=== PATIENT | female | born 1970 | race Hispanic/Latino ===

== ENCOUNTER 2017-03-22 18:09 | Inpatient (IN) | payer OTHER ==
--- NOTE | 2017-03-22 18:28 | ED PDOC ---
Arrival/HPI - General Time Seen by Provider: 03/22/17 18:17 Historian: Patient, Other (Friend) - History of Present Illness Narrative History of Present Illness (Text): 03/22/17 18:27 Patient is a 46 year old female with reported past history of seizures "but not put on any seizure medication" presents to the emergency department after witnessed seizure by significant other prior to arrival. Friend reports whole body shaking which lasted for approximately one minute. After shaking episode patient was "passed out for about a minute". No trauma noted. Patient reportedly has had no recent illnesses or change in medication per initial report. No recent fever or chills. No report of headache or nausea or vomiting. PMD: Dr. Hernandez Time/Duration: Prior to Arrival Symptom Onset: Sudden Modifying Factors (Text): None Associated Symptoms (Text): None Past Medical History - Provider Review Nursing Documentation Reviewed: Yes - Infectious Disease Hx of Infectious Diseases: None - Tetanus Immunization Tetanus Immunization: Unknown - Cardiac Hx Cardiac Disorders: No - Pulmonary Hx Asthma: Yes - Neurological Hx Neurological Disorder: No - HEENT Hx HEENT Disorder: No - Renal Hx Renal Disorder: No - Endocrine/Metabolic Hx Endocrine Disorders: No - Hematological/Oncological Hx Blood Disorders: No - Integumentary Hx Dermatological Disorder: No - Musculoskeletal/Rheumatological Hx Musculoskeletal Disorders: No - Gastrointestinal Hx Gastrointestinal Disorders: No - Genitourinary/Gynecological Hx Genitourinary Disorders: No - Psychiatric Hx Psychophysiologic Disorder: Yes Hx Bipolar Disorder: Yes Hx Schizophrenia: Yes Hx Substance Use: No - Past Surgical History Past Surgical History: No Previous - Suicidal Assessment Feels Threatened In Home Enviroment: No Family/Social History - Physician Review Nursing Documentation Reviewed: Yes Family/Social History: CAD/AR Smoking Status: Light Smoker < 10 Cigarettes Daily Hx Alcohol Use: No Hx Substance Use: No Allergies/Home Meds Allergies/Adverse Reactions: Allergies Penicillins Allergy (Verified 03/22/17 18:24) ANAPHYLAXIS Home Medications: Home Meds Medication Instructions Recorded Confirmed Propranolol [Inderal] 10 mg PO DAILY 09/14/15 03/22/17 Rosuvastatin Calcium [Crestor] 20 mg PO HS 09/14/15 03/22/17 Venlafaxine [Effexor XR] 150 mg PO BID 09/14/15 03/22/17 Bupropion HCl [Bupropion HCl Sr] 200 mg PO BID 03/22/17 03/22/17 Cyclobenzaprine [Flexeril] 5 mg PO BID PRN 03/22/17 03/22/17 Docusate Sodium [Sof-Lax] 100 mg PO DAILY 03/22/17 03/22/17 Omeprazole 20 mg PO DAILY 03/22/17 03/22/17 Quetiapine Fumarate [Quetiapine 200 mg PO HS 03/22/17 03/22/17 Fumarate ER] Review of Systems - Review of Systems Constitutional: absent: Fevers Eyes: absent: Vision Changes ENT: Sore Throat. absent: Hearing Changes, Rhinorrhea Respiratory: absent: SOB Cardiovascular: absent: Chest Pain, HOLLOWAY Gastrointestinal: absent: Abdominal Pain Genitourinary Female: absent: Dysuria Musculoskeletal: absent: Neck Pain Skin: absent: Rash Neurological: Speech Changes, Seizure. absent: Headache, Focal Weakness Endocrine: absent: Diaphoresis Psychiatric: absent: Depression Physical Exam - Physical Exam Narrative Physical Exam (Text): Head: Atraumatic. Normocephalic. Eyes: PERRL. EOMI. Conjunctivae are not pale. Visual acuity intact. ENT: Mucous membranes are moist and intact. Oropharynx is clear and symmetric. No pharyngeal erythema or exudates. No uvular deviation. No drooling. No tongue laceration. Neck: Supple. Full ROM. No JVD. No lymphadenopathy. No soft tissue swelling. Cardiovascular: Regular rate. Regular rhythm. Systolic murmur. Pulmonary/Chest: No evidence of respiratory distress. Clear to auscultation bilaterally. No wheezing, rales or rhonchi. Abdominal: Soft and non-distended. There is no tenderness. No rebound, guarding, or rigidity. No organomegaly. Good bowel sounds. Back: No CVA tenderness. No midline tenderness. Extremities: No edema. No cyanosis. No clubbing. Full range of motion in all extremities. No calf tenderness. Skin: Skin is warm and dry. No petechiae. No purpura. No lacerations noted. Neurological: Awake, will answer questions with slow speech but it is appropriate, she moves all 4 extremities with no pronator drift, appears mildly tremulous. Psychiatric: Will open eyes to command and answer questions, denies suicidal or homicidal ideation. 03/22/17 21:28 Vital Signs Reviewed: Yes Vital Signs Temp Pulse Resp BP Pulse Ox 03/22/17 23:50 104 H 18 121/62 99 03/22/17 21:22 99 H 19 162/90 H 97 03/22/17 18:38 99.4 F 93 H 18 126/88 96 Temperature: Afebrile Pulse: Tachycardic Appearance: Positive for: Ill-Appearing Mental Status: Positive for: Confused Medical Decision Making ED Course and Treatment: Progress Notes: Patient evaluated upon arrival to [facility]. History obtained with EMS as well as "significant other". Patient was witnessed to be "shaking all over" for " one minute". On initial exam she will answer questions slowly, move all extremities. She appears postictal. She reports last seizure was over a year ago in [place], where "she had testing done and they didn't think they were real seizures" and she states she was not put on seizure medication. She initially states that she has had no change in her medication, but when asked more specifically she states that she "ran out of my Klonopin I haven't had it for two days". Patient with serial neuro exams is found to be progressively more alert, interactive, awake. She continues to deny any headache, chest pain or shortness of breath. No respiratory distress noted. No calf pain or swelling. No pleuritic chest pain noted. She continues to be improved with interaction with serial exams. EKG shows normal sinus rhythm at 94 BPM with left bundle branch block. This left bundle branch block was NOT PRESENT in previous EKG on 06/08/15. She states no chest pain or shortness of breath. Family reportedly has history of cad. Patient reevaluated. Patient is alert, answering questions. Denies any chest pain or shortness of breath CT Head w/o contrast IMPRESSION: No acute intracranial abnormality Dictated and Authenticated by: Elissa Vigil MD 03/22/2017 7:41 PM Eastern Time ([place] & [place]) 03/22/17 21:30 With continual exams, she is found to be more tachycardic and tremulous. I suspect component of possible withdrawal from medication as she reports not taking Klonopin for several days. IV ativan ordered. Case d/w DR. Owens, covering for PMD, will admit to monitored bed and consult neurology as well as cardiology for LBBB. Patient has had history of intermittent sore throat. Although no obvious pharyngeal erythema or edema noted, I have recommended ENT follow-up for persistent symptoms to exclude pathology. Currently no stridor or angioedema noted. - Lab Interpretations Lab Results: 03/22/17 18:20 03/22/17 18:20 Lab Results 03/22/17 18:20: Sodium 138, Potassium 3.3 L, Chloride 95 L, Carbon Dioxide 31, Anion Gap 15, BUN 16, Creatinine 0.9, Est GFR ( Amer) > 60, Est GFR (Non- Af Amer) > 60, Random Glucose 94, Calcium 10.2, Total Bilirubin 0.5, AST 36, ALT 34, Alkaline Phosphatase 104, Lactate Dehydrogenase 507, Total Creatine Kinase 89, Troponin I < 0.01, NT-Pro-B Natriuret Pep 39.0, Total Protein 9.3 H, Albumin 4.7, Globulin 4.6, Albumin/Globulin Ratio 1.0 L 03/22/17 18:20: PT 11.0, INR 1.02, APTT 27.3 03/22/17 18:20: WBC 6.5, RBC 4.42, Hgb 12.3, Hct 37.2, MCV 84.2, MCH 27.8, MCHC 33.1, RDW 14.4, Plt Count 407, MPV 9.4, Gran % 59.4, Lymph % (Auto) 29.9, [place] % (Auto) 6.8 H, Eos % (Auto) 3.1, Baso % (Auto) 0.8, Gran # 3.84, Lymph # 1.9, [place] # 0.4, Eos # 0.2, Baso # 0.05 03/22/17 18:19: POC Glucose (mg/dL) 115 H - RAD Interpretation Radiology Orders: 03/22/17 18:49 HEAD W/O CONTRAST [CT] Stat CHEST PORTABLE [RAD] Stat Work Checker: Radiologist - EKG Interpretation EKG Interpretation (Text): 03/22/17 21:30 EKG at 18:33 normal sinus rhythm with first degree av block, left bundle branch block Interpreted by ED Physician: Yes Type: 12 lead EKG Comparison: Different from prev. EKG - Medication Orders Current Medication Orders: Discontinued Medications Aminophylline (Aminophylline 25 Mg/Ml Inj) Confirm Administered Dose 250 mg .ROUTE .STK-MED ONE Stop: 03/24/17 09:56 Atorvastatin Calcium (Lipitor) 80 mg PO HS RADHA Last Admin: 03/24/17 22:05 Dose: 80 mg Clonazepam (Klonopin) 1 mg PO BID RADHA PRN Reason: Protocol Last Admin: 03/25/17 09:31 Dose: 1 mg Re-Assess: Reassess Psych Meds Document 03/25/17 10:31 RDS (Rec: 03/25/17 12:02 RDS [id number]) Reassess Psych Med Effective Cyclobenzaprine HCl (Flexeril) 5 mg PO BID PRN PRN Reason: Pain, moderate (4-7) Last Admin: 03/22/17 22:52 Dose: 5 mg Iohexol (Omnipaque 300 100 Ml) Confirm Administered Dose 100 ml IJ .STK-MED ONE Stop: 03/23/17 13:18 Levetiracetam (Keppra) 500 mg PO BID [facility] Last Admin: 03/25/17 09:31 Dose: 500 mg Lorazepam (Ativan) 1 mg IVP ONCE ONE Stop: 03/22/17 21:11 Last Admin: 03/22/17 21:22 Dose: 1 mg Pantoprazole Sodium (Protonix Ec Tab) 40 mg PO 0630 RADHA Last Admin: 03/25/17 07:33 Dose: 40 mg Potassium Chloride (K-Dur 20 Meq Er Tab) 20 meq PO STAT STA Stop: 03/22/17 20:12 Last Admin: 03/22/17 20:36 Dose: 20 meq Potassium Chloride (K-Dur 20 Meq Er Tab) 20 meq PO ONCE ONE Stop: 03/23/17 19:37 Last Admin: 03/23/17 20:12 Dose: 20 meq Potassium Chloride (K-Dur 20 Meq Er Tab) 20 meq PO BRK RADHA Last Admin: 03/25/17 08:00 Dose: 20 meq Propranolol HCl (Inderal) 10 mg PO DAILY [facility] Last Admin: 03/25/17 09:31 Dose: 10 mg Quetiapine Fumarate (Seroquel Xr) 200 mg PO HS RADHA PRN Reason: Protocol Last Admin: 03/24/17 22:05 Dose: 200 mg Regadenoson (Lexiscan) Confirm Administered Dose 0.4 mg IVP .STK-MED ONE Stop: 03/24/17 09:56 - Scribe Statement The provider has reviewed the documentation as recorded by the Polo Clancy Provider Scribe Attestation: All medical record entries made by the Bookeribe were at my direction and personally dictated by me. I have reviewed the chart and agree that the record accurately reflects my personal performance of the history, physical exam, medical decision making, and the department course for this patient. I have also personally directed, reviewed, and agree with the discharge instructions and disposition. Disposition/Present on Arrival - Present on Arrival Any Indicators Present on Arrival: No History of DVT/PE: No History of Uncontrolled Diabetes: No Urinary Catheter: No History Surgical Site Infection Following: None - Disposition Have Diagnosis and Disposition been Completed?: Yes Diagnosis: Seizure, Withdrawal seizures, Left bundle branch block Disposition: HOSPITALIZED Disposition Time: 20:00 Patient Plan: Admission, Telemetry Condition: SERIOUS
[2017-03-22 18:40] VITALS: BMI 40.7
[2017-03-22 19:01] LABS: ADD MANUAL DIFF? NO
[2017-03-22 19:17] LABS: BASO # 0.05 K/mm3 (0.0-2.0); BASO % 0.8 % (0.0-3.0); EOS # 0.2 (0.0-0.7); EOS % 3.1 % (1.5-5.0); GRAN # 3.84 (1.4-6.5); GRAN % 59.4 % (50.0-68.0); HEMATOCRIT 37.2 % (36.0-48.0); LYMPH # 1.9 (1.2-3.4); LYMPH % 29.9 % (22.0-35.0); MEAN CELL VOLUME 84.2 fL (80.0-105.0); MEAN CORPUSCULAR HEMOGLOBIN 27.8 pg (25.0-35.0); MEAN CORPUSCULAR HGB CONC 33.1 g/dl (31.0-37.0); MEAN PLATELET VOLUME 9.4 fl (7.0-11.0); MONO # 0.4 (0.1-0.6); MONO % 6.8 % (1.0-6.0); PLATELET COUNT 407 10^3/uL (120.0-450.0); RED CELL DISTRIBUTION WIDTH 14.4 % (11.5-14.5); WHITE BLOOD COUNT 6.5 10^3/ul (4.5-11.0)
[2017-03-22 19:30] LABS: TROPONIN I < 0.01 ng/mL
[2017-03-22 19:31] LABS: INR 1.02 (0.93-1.08); PARTIAL THROMBOPLASTIN TIME 27.3 Seconds (23.7-30.8)
--- NOTE | 2017-03-22 19:41 | CT ---
EXAM: CT Head Without Intravenous Contrast CLINICAL HISTORY: 46 years old, female; Signs and symptoms and condition or disease; Patient HX: Seizure TECHNIQUE: Axial computed tomography images of the head/brain without intravenous contrast. This CT exam was performed using one or more of the following dose reduction techniques: automated exposure control, adjustment of the mA and/or kV according to patient size, and/or use of iterative reconstruction technique. EXAM DATE/TIME: 03/22/2017 6:49 PM COMPARISON: There are no prior studies for comparison. FINDINGS: Brain: Ventricles are normal in size and configuration. There is no midline shift. There are no intra-axial or extra-axial mass lesions or areas of hemorrhage. There are no abnormal fluid collections. Pink-white differentiation is maintained. Ventricles: See above. Bones: Cranial vault is intact. Soft tissues: unremarkable Sinuses: There is no acute sinusitis. Ears and mastoids: Middle ears and mastoids are unremarkable Orbits: Orbital contents are unremarkable. IMPRESSION: No acute intracranial abnormality
[2017-03-22 19:45] LABS: ALKALINE PHOSPHATASE 104 U/L (38-133); ALT/SGPT 34 U/L (7-56); AST/SGOT 36 U/L (15-39); BILIRUBIN,TOTAL 0.5 mg/dL (0.2-1.3); BLOOD UREA NITROGEN 16 mg/dL (7-21); CALCIUM 10.2 mg/dL (8.4-10.5); CARBON DIOXIDE 31 mmol/L (21-33); CHLORIDE 95 mmol/L (98-107); GFR AFRICAN-AMERICAN > 60; GLUCOSE,RANDOM 94 mg/dL (70-110); POTASSIUM 3.3 mmol/L (3.6-5.0); SODIUM 138 mmol/L (132-148); TOTAL PROTEIN 9.3 g/dL (5.8-8.3)
[2017-03-22] MEDS ORDERED: Potassium Chloride 20 mEq ER Tab PO STA (20:11)
[2017-03-22] MEDS ORDERED: BUPROPION HCL 200 MG PO SCH (22:00)
[2017-03-22] MEDS: QUEtiapine 200 mg XR Tab PO SCH (22:52)
[2017-03-23 08:48] LABS: ALB/GLOB RATIO 1.1 (1.1-1.8); ALKALINE PHOSPHATASE 102 U/L (38-133); ALT/SGPT 29 U/L (7-56); AST/SGOT 32 U/L (15-39); BILIRUBIN,TOTAL 0.6 mg/dL (0.2-1.3); BLOOD UREA NITROGEN 17 mg/dL (7-21); CALCIUM 9.8 mg/dL (8.4-10.5); CARBON DIOXIDE 33 mmol/L (21-33); CHLORIDE 95 mmol/L (98-107); CHOLESTEROL 144 mg/dL (130-200); GFR AFRICAN-AMERICAN > 60; GLUCOSE,RANDOM 111 mg/dL (70-110); MAGNESIUM 2.1 mg/dL (1.7-2.2); PHOSPHOROUS 4.6 mg/dL (2.5-4.5); POTASSIUM 3.3 mmol/L (3.6-5.0); SODIUM 141 mmol/L (132-148); TOTAL PROTEIN 8.5 g/dL (5.8-8.3)
[2017-03-23 09:03] LABS: FREE T4 0.76 ng/dL (0.78-2.19)
--- NOTE | 2017-03-23 09:15 | CARD ---
APPROVED REPORT EKG Measurement Heart [id number] <Conclusion> Sinus rhythm with 1st degree AV block Left bundle branch block Abnormal ECG
[2017-03-23 09:17] LABS: THYROID STIMULATING HORMONE 1.64 mIU/mL (0.46-4.68)
--- NOTE | 2017-03-23 09:49 | RAD ---
HISTORY: sob COMPARISON: 10/15/2015 FINDINGS: LUNGS: No active pulmonary disease. PLEURA: No significant pleural effusion identified, no pneumothorax apparent. CARDIOVASCULAR: Normal. OSSEOUS STRUCTURES: No significant abnormalities. VISUALIZED UPPER ABDOMEN: Normal. OTHER FINDINGS: None. IMPRESSION: No active disease.
[2017-03-23 10:25] LABS: URINE BILIRUBIN NEGATIVE (NEGATIVE); URINE BLOOD NEGATIVE (NEGATIVE); URINE GLUCOSE (UA) NEGATIVE (NEGATIVE); URINE KETONE NEGATIVE (NEGATIVE); URINE LEUKOCYTE ESTERASE NEGATIVE Leu/uL (NEGATIVE); URINE PROTEIN NEGATIVE mg/dL (<30 mg/dL); URINE UROBILINOGEN 0.2 E.U./dL (<1 E.U./dL)
[2017-03-23 10:28] LABS: URINE APPEARANCE CLEAR (CLEAR); URINE COLOR YELLOW (YELLOW)
--- NOTE | 2017-03-23 10:31 | CON ---
DATE: 03/23/2017 REASON FOR CONSULTATION: Cardiac evaluation, abnormal EKG, left bundle branch block, admitted with jovanny sauceda. BRIEF CLINICAL HISTORY: This is a 46-year-old female, obese, body mass index 41.1 kg/m2, history of seizure, admitted with seizure yesterday. Denies any chest pain, denies any shortness of breath, den ies any palpitations. The patient feels shaking whole of the body and she passed out for a minute. The patient has a history of seizures for a long time and was taking seizure medication, but last 6 m ont it was stopped, and yesterday the patient had a seizure episode. Denies any chest pain, shortn ess of breath, any palpitation. PAST MEDICAL HISTORY: Significant for seizure. SOCIAL HISTORY: Active tobacco abuse, quit 8 months ago. Denies any history of alcohol abuse. CURRENT MEDICATIONS: The patient at home was taking ____, Effexor, propranolol, Inderal 10 mg, [place] e, rosuvastatin, omeprazole, cyclobenzaprine and Flexeril. ALLERGIES: PENICILLIN. PREVIOUS CARDIAC WORKUP: The patient had echocardiography done on 11/14/2013: Good LV function, no MVP. The patient had a stress test done on 11/14/2013 that shows limited study due to significant __ __, normal myocardial perfusion study, ejection fraction 72%. The previous EKG 11/14/2013: Normal s inus. Last also EKG ____/2014 also normal sinus. REVIEW OF SYSTEMS: As per HPI. PHYSICAL EXAMINATION: VITAL SIGNS: Temperature afebrile, heart rate 104, blood pressure 143/88. HEENT: PERRLA. Extraocular muscles intact. NECK: Supple. No carotid bruits. No thyromegaly. CHEST: Clear to auscultation. HEART: S1, S2 regular. ABDOMEN: Soft. EXTREMITIES: Clubbing and cyanosis negative. BLOOD WORKUP: WBC 6.5, hemoglobin 12.3, hematocrit 37.2, platelet count 407. Chemistry shows sodium 141, potassium 3.0, chloride 95, carbon dioxide 33, anion gap of 16, BUN 17, creatinine 0.9. IMPRESSION: Sinus tachycardia, left bundle branch block seen since 2014. No evidence of chest pain, no evidence of this acute myocardial infarction. Diabetes, hypertension, hyperlipidemia, sinus tach ycardia, was on propranolol, history of seizure. RECOMMENDATION: Will start Inderal. Get echo to assess LV function. Because of multiple risk facto rs and new onset AFib from last 2 years, including obesity and diabetes, will do a stress test tomorr ow. Discussed with the patient. The patient had a stress test in 2012 that was negative. Will foll ow with you. Thank you, Dr. Owens, for providing the opportunity in taking care of the patient. Chantel Avelar MD cc: [id number] TT: 03/23/2017 10:30:36 Confirmation # [id number] Dictation # [id number] mn
[2017-03-23 11:22] LABS: TROPONIN I < 0.01 ng/mL
--- NOTE | 2017-03-23 13:00 | PN ---
DATE: 03/23/2017 The patient is a 46-year-old white female who was brought in the Emergency Room by her partner. She states she was watching TV and first her arm started to shake and then she had generalized seizures w here she seized for almost a minute and stopped spontaneously and then she was confused, so her partn er called ambulance and she was brought to Emergency Room. According to her partner, she was confuse d for a couple of hours after the seizure. Denies any localized weakness or numbness. Does have nikolai e headache, but denies any nausea, vomiting, diarrhea. No history of drug use. No history of fever or chills. PAST MEDICAL HISTORY: Significant for: 1. Schizophrenia. 2. Bipolar disorder. She is on multiple medications for that. ALLERGIES: SHE IS ALLERGIC TO PENICILLIN. MEDICATIONS AT HOME: She is on Flexeril. She is on Seroquel 200 at bedtime, omeprazole 20 mg daily, Crestor 20 mg at bedtime. She is on propranolol 10 mg daily and venlafaxine and bupropion. SOCIAL HISTORY: She lives with another female, who she claims is her partner. PHYSICAL EXAMINATION: GENERAL: The patient is awake and alert, able to communicate and answer questions appropriately. VITAL SIGNS: The patient is afebrile, pulse 93, respirations 20, blood pressure 143/88. LUNGS: Bilateral fair airflow, no rhonchi or crackle. HEART: S1, S2 audible. ABDOMEN: Soft, nontender, obese. No hepatosplenomegaly. NEUROLOGIC: The patient is awake and alert, communicative. Moves all extremities. LABORATORY EXAMINATION: Chemistry: Sodium 141, potassium 3.3, chloride 95, CO2 of 33, BUN 17, creat inine 0.9, blood sugar of 111, phosphorus 4.6, calcium 9.8, hemoglobin A1c 6.3, total protein 8.1. H DL if 83. TSH 0.76, that is suppressed. CT scan of the chest was done and that is unremarkable. EK G shows sinus rhythm with first degree AV block, left bundle branch block. ASSESSMENT AND PLAN: 1. Recurrent seizures. The patient states she had a seizure almost a year ago when she was in [facility], but in between she was okay. 2. Abnormal EKG. 3. Morbid obesity. 4. Bipolar disorder. 5. Seizure disorder. PLAN: The patient has been started on Keppra. We will do EEG and get MRI of the brain. Awaiting ne urology consult. Dr. Avelar's input noted and appreciated. The patient is scheduled to have stress t est done tomorrow. When we get all these results back, we will make discharge plan. Simi Owens MD cc: [id number] TT: 03/23/2017 12:59:56 Confirmation # [id number] Dictation # [id number] sn
[2017-03-23] MEDS ORDERED: Iohexol 300 100 ML IJ ONE (13:17)
--- NOTE | 2017-03-23 14:34 | CT ---
PROCEDURE: CT HEAD WITH AND WITHOUT CONTRAST HISTORY: SEIZURE COMPARISON: 03/22/2017 TECHNIQUE: Axial computed tomography images were obtained through the head/brain with and without intravenous contrast enhancement. Contrast dose: 100 cc of Omni 300 Radiation dose: Total exam DLP = 1640 mGy-cm. This CT exam was performed using one or more of the following dose reduction techniques: Automated exposure control, adjustment of the mA and/or kV according to patient size, and/or use of iterative reconstruction technique. FINDINGS: HEMORRHAGE: No intracranial hemorrhage. BRAIN: No mass, mass effect or edema. No abnormal intracranial enhancement. No atrophy or chronic microvascular ischemic changes. VENTRICLES: Unremarkable. No hydrocephalus. CALVARIUM: Unremarkable. SINUSES: Unremarkable as visualized. No significant inflammatory changes. MASTOID AIR CELLS: Unremarkable as visualized. No mastoid effusion. OTHER FINDINGS: None. IMPRESSION: Normal pre and post contrast enhanced CT of the head.
[2017-03-23 15:20] LABS: TROPONIN I < 0.01 ng/mL
[2017-03-23] MEDS ORDERED: Potassium Chloride 20 mEq ER Tab PO ONE (19:36)
[2017-03-23] MEDS: Pantoprazole 40 mg EC Tab PO SCH (20:12)
[2017-03-23 20:15] LABS: CHOLESTEROL 145 mg/dL (130-200)
--- NOTE | 2017-03-23 21:50 | CON ---
DATE: 03/23/2017 HISTORY OF PRESENT ILLNESS: This is a 46-year-old female with past medical history not significant, came here with a history of seizure and and noted that she was shaking the whole body, no urin martha incontinence. No tongue bite and brought to the hospital for further workup. SOCIAL HISTORY: Smokes and does not drink. CURRENT MEDICATIONS: Under the psychiatrist, Effexor, propranolol, Inderal. ALLERGIES: PENICILLIN. REVIEW OF SYSTEMS: A 10-point review of system was negative. PHYSICAL EXAMINATION: HEENT: Normocephalic, atraumatic. NECK: Supple. NEUROLOGIC: Alert, awake, and oriented x 3. No aphasia. Cranial nerves II through XII were tested. Pupils equal and reactive to light. EOM intact. Visual granger full. No facial asymmetry. Tongue midline. Motor examination: Moves all the extremities equally. Tone normal. Deep tendon reflexes 1+. Both plantars are downgoing. Sensory appears intact. Cerebellar gait is normal. IMPRESSION: Seizure. PLAN: Continue present management. We will follow up. Stevo Wells MD cc: [id number] TT: 03/23/2017 21:49:27 Confirmation # [id number] Dictation # [id number] sarina
[2017-03-23] MEDS: QUEtiapine 200 mg XR Tab PO SCH (22:38)
[2017-03-24] MEDS: Pantoprazole 40 mg EC Tab PO SCH (06:26)
[2017-03-24 07:24] LABS: ALB/GLOB RATIO 1.1 (1.1-1.8); ALKALINE PHOSPHATASE 91 U/L (38-133); ALT/SGPT 29 U/L (7-56); AST/SGOT 26 U/L (15-39); BILIRUBIN,TOTAL 0.6 mg/dL (0.2-1.3); BLOOD UREA NITROGEN 16 mg/dL (7-21); CALCIUM 9.3 mg/dL (8.4-10.5); CARBON DIOXIDE 34 mmol/L (21-33); CHLORIDE 96 mmol/L (98-107); GFR AFRICAN-AMERICAN > 60; GLUCOSE,RANDOM 101 mg/dL (70-110); MAGNESIUM 2.2 mg/dL (1.7-2.2); PHOSPHOROUS 4.1 mg/dL (2.5-4.5); POTASSIUM 3.3 mmol/L (3.6-5.0); SODIUM 138 mmol/L (132-148); TOTAL PROTEIN 7.6 g/dL (5.8-8.3)
[2017-03-24 07:31] LABS: FREE T4 0.86 ng/dL (0.78-2.19)
[2017-03-24 07:45] LABS: THYROID STIMULATING HORMONE 1.98 mIU/mL (0.46-4.68)
[2017-03-24] MEDS ORDERED: Aminophylline 25 mg/ml Inj ONE (09:55)
--- NOTE | 2017-03-24 11:50 | PN ---
DATE: 03/24/2017 REASON FOR CONSULTATION AND FOLLOWUP: Cardiac evaluation, abnormal EKG, left bundle branch block, ad mitted with seizure. BRIEF CLINICAL HISTORY: A 46-year-old obese female with body mass index 41.1 kg/meters squared, hist ory of seizure disorder, admitted with seizure. Denies any chest pain, shortness of breath, any palp itation. The patient was shaking all over the body and passed out for a minute. The patient was vin ing anti-seizure medication, but quit last 6 months. Denies any chest pain, shortness of breath, any palpitation. The patient had a stress test 2012 that shows normal study, ejection fraction 72%. patient had EKG in showed normal sinus. Since then, the most recent EKG shows left bundle br anch block, so cardiology consult was called. So far, no complaint of chest pain, no ischemic sympto ms, but given the multiple risk factors including obesity, patient is scheduled for a stress test toraffi ling. PHYSICAL EXAMINATION: VITAL SIGNS: Temperature afebrile, heart rate 87, blood pressure 116/62. HEENT: PERRLA. Extraocular muscles intact. NECK: Supple. No carotid bruits. No thyromegaly. CHEST: Clear to auscultation. HEART: S1, S2 regular. ABDOMEN: Soft. EXTREMITIES: Clubbing, cyanosis negative. BLOOD WORKUP: WBC 6.5, hemoglobin 12.3, hematocrit 37.2, platelet count 407. Chemistry shows sodium 130, potassium 3.3, chloride , carbon dioxide 34, anion gap of 11, BUN 16, creatinine 0.8. IMPRESSION: Hypokalemia, seizure disorder, no evidence of acute myocardial infarction, no evidence o f acute coronary syndrome, left bundle branch block, chronicity not known, last EKG 2014 is normal. RECOMMENDATION: We will get a stress test and echo. Further recommendation after the stress test. We will supplement potassium. If remains stable, will discontinue telemetry. Thank you, Dr. Owens, for providing us the opportunity in taking care of the patient. Neurologist' s note reviewed, possibly is a seizure, recommended anti-seizure medication. We will follow with you . Chantel Avelar MD cc:Simi Owens MD [phone] TT: 03/24/2017 11:50:10 Confirmation # [id number] Dictation # [id number] en
--- NOTE | 2017-03-24 12:55 | DS ---
The patient is a 46-year-old, seen and examined in the cardiology department after she had stress hunter t done. No EKG changes upon exercise stress. However, scan is pending. PHYSICAL EXAMINATION: VITAL SIGNS: The patient is afebrile, pulse 83, respirations 20, blood pressure 116/62. LUNGS: Bilateral fair airflow, no rhonchi or crackle. HEART: S1, S2 audible. ABDOMEN: Soft, nontender, no rebound, no guarding. NEUROLOGIC: The patient is awake and alert, communicative. LABORATORY EXAMINATION: WBCs 6.5, hemoglobin 12, hematocrit 37, platelet 407. PT 11.0, INR 1.02. C hemistry: Sodium 138, potassium 3.3, chloride 96, CO2 34, BUN , creatinine 0.8, blood sugar of 101. LFTs are within normal limits. HDL is 83. Urinalysis is unremarkable. Echocardiogram is pend ing. ASSESSMENT: 1. Seizure disorder. 2. Chest pain, seems to be noncardiac. 3. Bipolar disorder. 4. Left bundle branch block. 5. Hypokalemia. The patient states she takes a water pill at home along with potassium. That has b een on hold. PLAN: We will continue patient on Keppra 500 twice a day. Awaiting psych input if they want to read just medication. The patient is cleared from neuro and cardiology point of view. She can be dischar ged home later on today. Simi Owens MD cc: [phone] TT: 03/24/2017 12:54:32 en
[2017-03-24] MEDS: Potassium Chloride 20 mEq ER Tab PO SCH (13:25)
--- NOTE | 2017-03-24 16:34 | CARD ---
APPROVED REPORT Protocol: LEXISCAN Test Type: Lexiscan Sestamibi Stress Test Attending Physician: Dr. Chantel Chairez Referring Physician: Dr. Simi Owens Test Indications: Abnormal ECG Height:5 ft 3 in Weight:232lbs Medications: Lipitor,Klonopin,Glexeril,Keppra, Protonix,Inderal, Seroquel Medical History: 46 y/o female. Hx of A. Fib.,seizures,LBBB, Abnormal EKC. Target HR: 174 bpm Resting ECG: RSR. ST_T Changes. Resting Heart Rate: 78 bpm Resting Blood Pressure: 110/80mmHg Submaximum (85%): 148 bpm PROCEDURE Pharmacologic stress testing was performed using 0.4mg per 5ml of regadenoson given intravenously over 7-10 seconds. POST EXERCISE Reason for Termination: Protocol completed Target HR: No Max HR: 76 bpm 60% of Maximum Predicted HR: 174 bpm Exercise duration: 00:32 min:sec, 0 Stage Exercise capacity: 1.0METs Max Blood Pressure: 110/80mmHg Blood Pressure response to exercise: normal resting BP - appropriate response Heart Rate response to exercise: appropriate Chest Pain: No, none Angina index: 0 Arrhythmia: No, none ST Change: No, none Deviation: 0 mm INTERPRETATION Stress EKG Conclusion: IV LEXISCAN NUCLEAR STRESS TEST NEGATIVE FOR CHEST PAIN AND NEGATIVE FOR ADDITIONAL ST-T CHANGES. NUCLEAR SCAN REPORT PENDING. Signed by Chantel Chairez Electronically Approved: 03/24/2017 13:29:00 EXAM: Myocardial Perfusion REST/STRESS Stress Test Type: Pharmacologic Imaging Protocol Rest Spect myocardial perfusion imaging was performed in supine position 40 minutes following the injection of 10 mCi of Tc-99 Myoview. At peak stress, the patient was injected intravenously with 30mCi of Tc-99 tetrofosmin after an infusion time of minutes and 10 seconds. Gated Stress Spect was performed 60 minutes after intravenous Tc-99 Myoview injection. The images were gated to evaluate regional wall motion and calculate ventricular ejection fraction.Images were reconstructed using backfilter projection method in short horizontal and verticle long axis. Spect slices were generated. LV Perfusion The quality of the study is good. The left ventricle is normal in size. The right ventricle is unremarkable. The lung uptake is normal. The distribution of tracer reveals mildly and diffusely decreased perfusion involving anterior wall on the stress study. The remainder of the LV myocardium is unremarkable. The rest myocardial perfusion study shows no significant change. Wall Motion Wall motion study shows good contractility of the left ventricle. LVEF = 74%. Conclusion 1. Essentially normal SPECT myocardial perfusion study. 2. Fixed, anterior defect is most likely due to breast attenuation. 3. Normal gated wall motion of the left ventricle. 4. In comparison with the last study of 11/14/2013, there is no significant change.
--- NOTE | 2017-03-24 16:36 | CP.PCM.PCO ---
Physician Communication Note - Physician Communication Note Physician Communication Note: pt was at the stress test during round, as per RN no acute issues, will f/u
[2017-03-24] MEDS: QUEtiapine 200 mg XR Tab PO SCH (22:05)
[2017-03-25 06:16] VITALS: O2SAT 96
[2017-03-25] MEDS: Pantoprazole 40 mg EC Tab PO SCH (07:33)
[2017-03-25] MEDS: Potassium Chloride 20 mEq ER Tab PO SCH (08:00)
--- NOTE | 2017-03-25 10:41 | PN ---
DATE: 03/25/2017 REASON FOR CONSULTATION AND FOLLOWUP: Cardiac evaluation, abnormal EKG, left bundle branch block, ad mitted with seizure. BRIEF CLINICAL HISTORY: This is a 46-year-old obese female with increased body mass index of 41.1 kg /m2, seizure disorder, having multiple risk factors for coronary artery disease as well as left bundl e branch block (new). Underwent a stress test that was normal. Denies any chest pain, shortness of breath, any palpitation. PHYSICAL EXAMINATION: VITAL SIGNS: Temperature afebrile, heart rate 70, blood pressure 110/68. HEENT: PERRLA. Extraocular muscles intact. NECK: Supple. No carotid. No thyromegaly. CHEST: Clear to auscultation. HEART: S1, S2 regular. ABDOMEN: Soft. EXTREMITIES: Clubbing and cyanosis negative. LABORATORY DATA: TSH 1.96. Triglycerides 79, cholesterol 145, LDH 37, HDL 83. Stress test shows no reversible ischemia, essentially normal myocardial perfusion study, ejection fra ction of 74%. IMPRESSION: Left bundle branch block since last electrocardiogram in 2012. Negative stress test, no evidence of acute coronary syndrome. No evidence of acute myocardial infarction. Seizure disorder. RECOMMENDATION: Discontinue telemetry. Continue medical treatment. No further cardiac workup is pl anned. Thank you, Dr. Owens, for providing the opportunity in taking care of this patient. Chantel Avelar MD cc: [phone] TT: 03/25/2017 10:41:42 Confirmation # [id number] Dictation # [id number] mn
[2017-03-25 12:44] VITALS: BP 100/62; PULSE 63; RESP 18; TEMP 97.9
--- NOTE | 2017-03-25 12:45 | PN ---
DATE: 03/25/2017 FOLLOWUP A 46-year-old female with no significant past medical history, came with a history of seizures. The patient was not taking the medication, started on Keppra. PHYSICAL EXAMINATION: NEUROLOGIC: Alert, awake, oriented x 3. No aphasia. Cranial nerves II-XII were tested. Pupils mariel ctive. Spontaneous movement of the extremities noted. Deep tendon reflexes 1+. Both plantars downg oing. Sensory appears intact. Cerebellar gait deferred. IMPRESSION: Seizure. Continue present management. We will follow up. Stevo Wells MD cc: [phone] TT: 03/25/2017 12:44:58 Confirmation # [id number] Dictation # [id number] barbi
--- NOTE | 2017-03-25 18:26 | CARD ---
APPROVED REPORT EXAM: Two-dimensional and M-mode echocardiogram with Doppler and color Doppler. INDICATION NEW LBBB/ABNORMAL EKG 2D DIMENSIONS Left Atrium (2D)2.7 (1.6-4.0cm)IVSd1.0 (0.7-1.1cm) LVDd3.9 (3.9-5.9cm)PWd1.0 (0.7-1.1cm) LVDs2.4 (2.5-4.0cm)FS (%) 39.1 % LVEF (%)70.1 (>50%) M-Mode DIMENSIONS Aortic Root3.40 (2.2-3.7cm)Aortic Cusp Exc.1.90 (1.5-2.0cm) Aortic Valve AoV Peak Oiubsper740.0cm/Irina Peak GR.9mmHg Mitral Valve MV E Emcmebxp74.5cm/sMV A Thfdsnji31.3cm/sE/A ratio0.7 TDI Lateral E' Peak V11.30cm/sMedial E' Peak V9.07cm/sE/Lateral E'4.9 E/Medial E'6.1 Pulmonary Valve PV Peak Sldwvfmh145.0cm/sPV Peak Grad.5mmHg Tricuspid Valve TR Peak Kcexyzir817kx/sRAP AFEORXJE83khQqLM Peak Gr.9mmHg [id number] LEFT VENTRICLE The left ventricle is normal size. There is normal left ventricular wall thickness. The left ventricular function is normal.EF-65-70% There is normal LV segmental wall motion. Transmitral Doppler flow pattern is Grade III-reversible restrictive diastolic dysfunction. No left ventricle thrombus noted on this study. There is no ventricular septal defect visualized. There is no left ventricular aneurysm. There is no mass noted in the left ventricle. RIGHT VENTRICLE The right ventricle is normal size. There is normal right ventricular wall thickness. The right ventricular systolic function is normal. ATRIA The left atrium size is normal. The right atrium size is normal. The interatrial septum is intact with no evidence for an atrial septal defect. AORTIC VALVE The aortic valve is thickened but opens well. No aortic regurgitation is present. There is no aortic valvular stenosis. There is no aortic valvular vegetation. MITRAL VALVE The mitral valve is thickened but opens well. Mitral regurgitation is mild. There is no mitral valve stenosis. There is no evidence of mitral valve prolapse. TRICUSPID VALVE The tricuspid valve leaflets are thickened , but open well. There is trace tricuspid regurgitation.RVSP-19 mmof Hg. There is no tricuspid valve stenosis. There is no tricuspid valve prolapse or vegetation. PULMONIC VALVE The pulmonary valve is normal in structure. There is trace pulmonic valvular regurgitation. There is no pulmonic valvular stenosis. GREAT VESSELS The aortic root is normal in size. The ascending aorta is normal in size. The pulmonary artery is normal. The IVC is normal in size and collapses >50% with inspiration. PERICARDIAL EFFUSION There is no pleural effusion. There is no pericardial effusion. <Conclusion> Normal chamber Size. EF-65-70%. Mildf MR Trace Tr. RVSP-19 mmof Hg.
--- NOTE | 2017-03-25 21:13 | CON ---
DATE: 03/25/2017 HISTORY OF PRESENT ILLNESS: Shortly, the patient is a 46-year-old female with a reported h istory of mental illness. Most likely, the patient has schizophrenia spectrum disorder. The patient also deemed to have some neurocognitive limitations. The patient was admitted to the medical floor for evaluation of possible seizure disorder/seizure episode. Psych consult was called for evaluation of medication management. The patient was seen and examined. The patient presented to be alert, pleasant, cooperative. The mark rasmussen's roommate is next to the patient. The patient reported due to the fact that patient's pharmac y was not able to deliver medication (Klonopin), the patient most likely had seizure episode. The mark rasmussen was advised to take medication as it was prescribed and make sure that she is taking medication s on a regular basis. The patient verbalized understanding. The patient reported that she is seeing a psychiatrist at [facility] and she fills medications at [facility]. [facility] was called and medications were confirmed. The patient was on: 1. Wellbutrin 200 mg twice a day, extended release, by Chana Gallagher. 2. Effexor 150 mg 3 times a day, by Chana Gallagher. 3. Seroquel 200 mg at the nighttime, by Chana Gallagher. 4. Klonopin 1 mg 3 times a day, by Chana Gallagher. 5. Also amitriptyline 150 mg at the nighttime, by Chana Gallagher. All of these medications could give decreased seizure threshold, but patient refused to go to the [facility] inpatient unit in order to adjust medications. The patient reported that she feels fine at present moment. Denied being depressed, denied thoughts of harming herself or others, denied intent or plan. The patient denied hearing voices, denied seein g things, denied paranoid ideations. The patient denied history of being admitted to the psychiatric inpatient unit and denied history of suicidal attempts. The patient was educated about medications needing to be adjusted. The patient verbalized understanding. This typewriter operator automatic suggested amitriptyline a nd Effexor should be tapered down. The patient verbalized understanding. The patient was educated t hat Wellbutrin extended release will not give possible decrease seizure threshold. The patient and h er roommate verbalized understanding. As per roommate. the patient gave consent to talk to the MARK wogn to her. As per roommate, the patient was functioning at her baseline and was taken medication of as it was prescribed, but due to the fact that patient's pharmacy did not deliver medications on elizabeth e, most recently she had withdrawal seizures from the Klonopin. Besides that, the patient was not de pressed, did not verbalize any thoughts of harming herself or others. The patient denied history of being admitted to the psychiatric inpatient unit. VITAL SIGNS: Reviewed. Seem to be stable. MEDICATIONS: Reviewed. The patient is on Lipitor, Klonopin, Flexeril, Keppra, Protonix, K-Dur, Inde ral, Seroquel 200 mg. LABORATORY DATA: Reviewed. Seem to be within normal limits. Reports were reviewed. Head CT scan was done on 03/23/2017. Normal CT scan of the head. Myocardial stress test was done. Also, patient was seen by Dr. Wells (neurologist) and was started on Keppra. MENTAL STATUS EXAMINATION: The patient appears to be alert and oriented, pleasant and cooperative. Fair eye contact. Speech was normal rate, tone, quality, and quantity. Thought process was concrete . Most likely this is due to some cognitive limitations. Thought content: The patient denies visua l, auditory, tactile hallucinations. Denied paranoid ideations. The patient denied thoughts of harm ing herself or others, denied intent or plan. Insight and judgment are fair. Impulses are well cont rolled. IMPRESSION: As per history, the patient has schizophrenia spectrum disorder. The patient also has s ome neurocognitive limitations. The patient has multiple medications. Most likely the patient had p olypharmacy which could decrease seizure threshold. On top of that, the patient's pharmacy did not d eliver Klonopin on time and she was missing 2 days of medication; most likely that is why she had sei zure episode. Meanwhile, please see medical team notes for more detailed information about medical i ssues. PLAN: The patient has a followup appointment at [facility]. Medications were c onfirmed. The patient and her roommate were educated about medications and increased risk of decreas ing seizure threshold from the current medication which she is taking. Medical team discontinued Wel lbutrin as well as Effexor as well as amitriptyline. Klonopin should be continued. The patient was offered psychiatric inpatient admission, but patient declined that offer. The patient was educated t o bring herself back to the hospital in case of worsening of the symptoms. The patient verbalized un derstanding. Meanwhile, continue current management. The patient is not suicidal, not homicidal, pr esented to be at her baseline as per patient's friend and roommate. Thank you very much for letting me participate in the care of your patient. Should you have any ques tions, give me a call back. Gisel Baptiste MD cc: [phone] TT: 03/25/2017 21:12:52 Confirmation # [id number] Dictation # [id number] mn
--- NOTE | 2017-03-25 23:31 | DS ---
HISTORY OF PRESENT ILLNESS: The patient is a 46-year-old seen and examined, lying in bed, seems to be comfortable. No nausea, vomiting. No diarrhea, no seizure-like activity noted. PHYSICAL EXAMINATION: VITAL SIGNS: She is afebrile, pulse 63, respirations 18, blood pressure 100/62. LUNGS: Bilateral fair air flow. No rhonchi or crackle. HEART: S1, S2 audible. No murmur. ABDOMEN: Soft, nontender, no rebound, no guarding. NEUROLOGIC: The patient is awake and alert, communicative. DIAGNOSTIC DATA: She had a stress test done that is unremarkable. EEG is pending. I spoke to Dr. Stevo Wells. He ag carroll to send patient home on Keppra 500 twice a day. ASSESSMENT: 1. Seizure disorder. This is the second episode. 2. History of bipolar disorder. 3. Intermittent bilateral leg edema. 4. Chest pain, noncardiac. Stress test is unremarkable. PLAN: The patient is being discharged home on Keppra 500 twice a day. She will resume her medicatio ns that include bupropion 200 twice a day. She is on Effexor. She is on propranolol 10 mg daily. Sh e is advised to either continue bupropion or Effexor. She is on Crestor 20 mg daily, omeprazole 20 m g daily, Seroquel 200 at bedtime, Keppra 500 twice a day, Klonopin 1 mg twice a day. She will follow with Dr. Alan, who is her primary care doctor, and Dr. Wells as outpatient. Simi Owens MD cc: [phone] TT: 03/25/2017 23:30:48 ln
--- NOTE | 2017-03-30 17:58 | EEG ---
DATE: 03/23/2017 CHIEF COMPLAINT: Rule out seizures. MEDICATIONS: Lipitor, Ativan, Keppra, Flexeril, Inderal, quetiapine. INTERPRETATION: This is a 6-channel international recording. The background activity of this record ing was composed of 6-7 cycles per second. There was small amount of beta activity of 16-20 cycles p er second seen in this recording. There was an increased amount of theta activity 5-7 cycles per sec ond seen in this tracing. Drowsiness was characterized by mixed beta and theta activities. Sleep wa s characterized by vertex transient waves, sleep spindles and bilateral slowing. Photic stimulation showed no change in the tracing. No paroxysmal activity noted in this recording. CONCLUSION: Abnormal electroencephalogram due to presence of diffuse slowing throughout the recordin g. No evidence of any epileptiform activity. Presentation consistent with bilateral cerebral dysfun ction. Please clinically correlate. Jose Guadalupe Wells MD cc: [phone] TT: 03/30/2017 17:57:15 Confirmation # [id number] Dictation # [id number] mn
== END 2017-03-25 15:37 | disposition home or self-care (01) | DRG 101 ==
LOC: ED 18:09 → ERH 21:23 → 2RSO 03-23 00:22
PROVIDERS: ADMIT Internal Medicine; ATTEND Internal Medicine
PROC: 5A09357 Assistance with Respiratory Ventilation, Less than 24 Consecutive Hours, Continuous Positive Airway Pressure (ICD-10-PCS; principal; 2017-03-24)
DX: G40.909 Epilepsy, unspecified, not intractable, without status epilepticus (principal); I10 Essential (primary) hypertension; Z68.41 Body mass index [BMI] 40.0-44.9, adult; R07.89 Other chest pain; F20.89 Other schizophrenia; I44.7 Left bundle-branch block, unspecified; F31.9 Bipolar disorder, unspecified; R00.0 Tachycardia, unspecified; E87.6 Hypokalemia; E78.5 Hyperlipidemia, unspecified; E66.01 Morbid (severe) obesity due to excess calories; Z87.891 Personal history of nicotine dependence

== ENCOUNTER 2018-01-06 10:17 | Emergency (ER) | payer OTHER ==
[2018-01-06 10:17] VITALS: BMI 40.7
[2018-01-06 10:41] VITALS: TEMP 99.1
--- NOTE | 2018-01-06 11:01 | ED PDOC ---
Arrival/HPI - General Chief Complaint: Upper Extremity Problem/Injury Time Seen by Provider: 01/06/18 10:57 Historian: Patient - History of Present Illness Narrative History of Present Illness (Text): 01/06/18 10:58 47 y/o female, pmh including htn/hyperlipidemia, post menopausal, penicillin allergy, c/o lt. elbow pain s/p fall on the lt. elbow about 4 days ago. Aching pain, aggravated by movement, no numbness or tingling, no palpitation, pain has not resolved, no rash, no other medical or psychological complaints. Past Medical History - Provider Review Nursing Documentation Reviewed: Yes - Infectious Disease Hx of Infectious Diseases: None - Tetanus Immunization Tetanus Immunization: Unknown - Cardiac Hx Cardiac Disorders: Yes - Pulmonary Hx Respiratory Disorders: Yes Hx Asthma: Yes - Neurological Hx Neurological Disorder: No - HEENT Hx HEENT Disorder: No - Renal Hx Renal Disorder: No - Endocrine/Metabolic Hx Endocrine Disorders: No - Hematological/Oncological Hx Blood Disorders: No - Integumentary Hx Dermatological Disorder: No - Musculoskeletal/Rheumatological Hx Musculoskeletal Disorders: Yes Other/Comment: HIP PAIN L - Gastrointestinal Hx Gastrointestinal Disorders: Yes Hx Gastroesophageal Reflux: Yes - Genitourinary/Gynecological Hx Genitourinary Disorders: No - Psychiatric Hx Psychophysiologic Disorder: Yes Hx Bipolar Disorder: Yes Hx Schizophrenia: Yes Hx Substance Use: No - Past Surgical History Past Surgical History: No Previous - Surgical History Hx Cardiac Catheterization: No Hx Coronary Stent: No - Anesthesia Hx Anesthesia: No - Suicidal Assessment Feels Threatened In Home Enviroment: No Family/Social History - Physician Review Nursing Documentation Reviewed: Yes Family/Social History: Unknown Family HX Smoking Status: Light Smoker < 10 Cigarettes Daily Hx Alcohol Use: No Hx Substance Use: No Allergies/Home Meds Allergies/Adverse Reactions: Allergies Penicillins Allergy (Verified 01/06/18 10:27) ANAPHYLAXIS Home Medications: Home Meds Medication Instructions Recorded Confirmed Propranolol [Inderal] 10 mg PO DAILY 09/14/15 01/06/18 Rosuvastatin Calcium [Crestor] 20 mg PO HS 09/14/15 01/06/18 Venlafaxine [Effexor XR] 150 mg PO BID 09/14/15 01/06/18 Bupropion HCl [Bupropion HCl Sr] 200 mg PO BID 03/22/17 01/06/18 Cyclobenzaprine [Flexeril] 5 mg PO BID PRN 03/22/17 01/06/18 Docusate Sodium [Sof-Lax] 100 mg PO DAILY 03/22/17 01/06/18 Omeprazole 20 mg PO DAILY 03/22/17 01/06/18 Quetiapine Fumarate [Quetiapine 200 mg PO HS 03/22/17 01/06/18 Fumarate ER] Review of Systems - Review of Systems Constitutional: absent: Fatigue, Fevers Eyes: absent: Vision Changes ENT: absent: Hearing Changes, Rhinorrhea Respiratory: absent: SOB, Cough Cardiovascular: absent: Chest Pain Gastrointestinal: absent: Abdominal Pain, Diarrhea, Nausea, Vomiting Musculoskeletal: Arthralgias. absent: Back Pain, Neck Pain, Joint Swelling, Myalgias Neurological: absent: Headache, Dizziness Psychiatric: absent: Anxiety, Depression Physical Exam Vital Signs Reviewed: Yes Vital Signs Temp Pulse Resp BP Pulse Ox 01/06/18 10:39 99.1 F 92 H 16 124/84 99 Temperature: Afebrile Blood Pressure: Normal Pulse: Regular Respiratory Rate: Normal Appearance: Positive for: Well-Appearing, Non-Toxic, Comfortable Pain Distress: Mild Mental Status: Positive for: Alert and Oriented X 3 - Systems Exam Head: Present: Atraumatic, Normocephalic Pupils: Present: PERRL Extroacular Muscles: Present: EOMI Conjunctiva: Present: Normal Mouth: Present: Moist Mucous Membranes Neck: Present: Normal Range of Motion Respiratory/Chest: Present: Clear to Auscultation, Good Air Exchange. No: Respiratory Distress, Accessory Muscle Use Cardiovascular: Present: Regular Rate and Rhythm, Normal S1, S2. No: Murmurs Abdomen: Present: Normal Bowel Sounds. No: Tenderness, Distention, Peritoneal Signs Back: Present: Normal Inspection Upper Extremity: Present: Normal Inspection, Other (Lt. upper extremity: mild + ttp on the medial elbow region with no skin breaking or discoloration, skin intact, no laceration or abrasion, FROM without limitation, sensation intact, motor 5/5, +radial pulse, capillary refill< 2 seconds, neurovascular intact. ). No: Cyanosis, Edema Lower Extremity: Present: Normal Inspection. No: Edema Neurological: Present: GCS=15, CN II-XII Intact, Speech Normal Skin: Present: Warm, Dry, Normal Color. No: Rashes Psychiatric: Present: Alert, Oriented x 3, Normal Insight, Normal Concentration Medical Decision Making ED Course and Treatment: 01/06/18 11:00 -lt. elbow xray -pt. refused pain med -observe and reassess 01/06/18 12:36 -Elbow xray show no acute findings. -Discharge home with tylenol, luann wrap, ice compression, follow up with your own pmd and orthopedic within 2 days, return to the ER for any new or worsening signs or symptoms. - RAD Interpretation Radiology Orders: 01/06/18 10:57 ELBOW LEFT 3 VIEWS ROUTINE [RAD] Stat PROCEDURE: Radiographs of the left elbow. HISTORY: lt. elbow pain COMPARISON: No prior. FINDINGS: BONES: Normal. No fracture. JOINTS: Normal. No osteoarthritis. SOFT TISSUES: Normal. JOINT EFFUSION: None. OTHER FINDINGS: None IMPRESSION: Unremarkable radiographs of the left elbow. Master Carpenter: Radiologist - PA / HEALTHCARE SALES REPRESENTATIVE / Resident Statement MD/DO has reviewed & agrees with the documentation as recorded. Disposition/Present on Arrival - Present on Arrival Any Indicators Present on Arrival: No History of DVT/PE: No History of Uncontrolled Diabetes: No Urinary Catheter: No History of Decub. Ulcer: No History Surgical Site Infection Following: None - Disposition Have Diagnosis and Disposition been Completed?: Yes Diagnosis: Elbow pain, Accidental fall Disposition: HOME/ ROUTINE Disposition Time: 11:01 Patient Plan: Discharge Patient Problems: Current Active Problems Problem Status Onset Elbow pain Acute Accidental fall Acute Condition: GOOD Additional Instructions: -Discharge home with tylenol, luann wrap, ice compression, follow up with your own pmd and orthopedic within 2 days, return to the ER for any new or worsening signs or symptoms. Prescriptions: Acetaminophen 2 tab PO QID PRN 8 Days #30 tab PRN Reason: Other Referrals: [employer] [employer] Nicho Rechantel, [Non-Staff] - Follow up with primary Nelson Davenport III, MD [Medical Doctor] - Follow up with primary Forms: WORK NOTE
--- NOTE | 2018-01-06 12:24 | RAD ---
PROCEDURE: Radiographs of the left elbow. HISTORY: lt. elbow pain COMPARISON: No prior. FINDINGS: BONES: Normal. No fracture. JOINTS: Normal. No osteoarthritis. SOFT TISSUES: Normal. JOINT EFFUSION: None. OTHER FINDINGS: None IMPRESSION: Unremarkable radiographs of the left elbow.
[2018-01-06 12:54] VITALS: BP 125/79; PULSE 78; RESP 18; O2SAT 100
== END 2018-01-06 12:54 | disposition home or self-care (01) ==
LOC: ED 10:17
DX: M25.522 Pain in left elbow (principal); W18.30XA Fall on same level, unspecified, initial encounter; Y92.9 Unspecified place or not applicable

== ENCOUNTER 2018-06-25 19:11 | Emergency (ER) | payer OTHER ==
[2018-06-25 19:56] VITALS: BMI 35.4
[2018-06-25 20:03] VITALS: RESP 18
--- NOTE | 2018-06-25 20:12 | ED PDOC ---
Arrival/HPI - General Chief Complaint: Headache Time Seen by Provider: 06/25/18 19:14 - History of Present Illness Narrative History of Present Illness (Text): 06/25/18 20:09 47 yo female, presetns with brown, fever to 101, sore throat, x few hours. minimal cough. no abd pain, n/v. no sick contacts. no neck pain, no urinary chagnes. Past Medical History - Infectious Disease Hx of Infectious Diseases: None - Tetanus Immunization Tetanus Immunization: Unknown - Cardiac Hx Cardiac Disorders: Yes - Pulmonary Hx Respiratory Disorders: Yes Hx Asthma: Yes - Neurological Hx Neurological Disorder: No - HEENT Hx HEENT Disorder: No - Renal Hx Renal Disorder: No - Endocrine/Metabolic Hx Endocrine Disorders: No - Hematological/Oncological Hx Blood Disorders: No - Integumentary Hx Dermatological Disorder: No - Musculoskeletal/Rheumatological Hx Musculoskeletal Disorders: Yes Other/Comment: HIP PAIN L - Gastrointestinal Hx Gastrointestinal Disorders: Yes Hx Gastroesophageal Reflux: Yes - Genitourinary/Gynecological Hx Genitourinary Disorders: No - Psychiatric Hx Psychophysiologic Disorder: Yes Hx Bipolar Disorder: Yes Hx Schizophrenia: Yes Hx Substance Use: No - Past Surgical History Past Surgical History: No Previous - Surgical History Hx Cardiac Catheterization: No Hx Coronary Stent: No - Anesthesia Hx Anesthesia: No Hx Anesthesia Reactions: No Hx Malignant Hyperthermia: No - Suicidal Assessment Feels Threatened In Home Enviroment: No Family/Social History Family/Social History: Unknown Family HX Smoking Status: Light Smoker < 10 Cigarettes Daily Hx Alcohol Use: No Hx Substance Use: No Allergies/Home Meds Allergies/Adverse Reactions: Allergies Penicillins Allergy (Verified 01/06/18 10:27) ANAPHYLAXIS Home Medications: Home Meds Medication Instructions Recorded Confirmed Propranolol [Inderal] 10 mg PO DAILY 09/14/15 01/06/18 Rosuvastatin Calcium [Crestor] 20 mg PO HS 09/14/15 01/06/18 Venlafaxine [Effexor XR] 150 mg PO BID 09/14/15 01/06/18 Bupropion HCl [Bupropion HCl Sr] 200 mg PO BID 03/22/17 01/06/18 Cyclobenzaprine [Flexeril] 5 mg PO BID PRN 03/22/17 01/06/18 Docusate Sodium [Sof-Lax] 100 mg PO DAILY 03/22/17 01/06/18 Omeprazole 20 mg PO DAILY 03/22/17 01/06/18 Quetiapine Fumarate [Quetiapine 200 mg PO HS 03/22/17 01/06/18 Fumarate ER] Review of Systems - Review of Systems Constitutional: Normal Eyes: Normal ENT: Sore Throat Respiratory: Cough Cardiovascular: Normal Gastrointestinal: Normal Genitourinary Female: Normal Musculoskeletal: Normal Skin: Normal Neurological: Normal Endocrine: Normal Hemo/Lymphatic: Normal Psychiatric: Normal Physical Exam Vital Signs Temp Pulse Resp BP Pulse Ox 06/25/18 21:15 99.6 F 98 H 18 120/79 100 06/25/18 20:43 100.4 F H 06/25/18 19:12 100.4 F H 103 H 18 120/67 97 Temperature: Afebrile Blood Pressure: Normal Pulse: Regular Respiratory Rate: Normal Appearance: Positive for: Well-Appearing, Non-Toxic, Comfortable Pain Distress: None Mental Status: Positive for: Alert and Oriented X 3 - Systems Exam Head: Present: Atraumatic, Normocephalic Pupils: Present: PERRL Extroacular Muscles: Present: EOMI Conjunctiva: Present: Normal Mouth: Present: Moist Mucous Membranes Pharnyx: Present: ERYTHEMA, EXUDATE Neck: Present: Normal Range of Motion Respiratory/Chest: Present: Clear to Auscultation, Good Air Exchange. No: Respiratory Distress, Accessory Muscle Use Cardiovascular: Present: Regular Rate and Rhythm, Normal S1, S2. No: Murmurs Abdomen: No: Tenderness, Distention, Peritoneal Signs Back: Present: Normal Inspection Upper Extremity: Present: Normal Inspection. No: Cyanosis, Edema Lower Extremity: Present: Normal Inspection. No: Edema Neurological: Present: GCS=15, CN II-XII Intact, Speech Normal, Other (neck supple, no menngmus, neg kernig bruzinkski) Skin: Present: Warm, Dry, Normal Color. No: Rashes Psychiatric: Present: Alert, Oriented x 3, Normal Insight, Normal Concentration Medical Decision Making ED Course and Treatment: 06/25/18 22:33 fever for few hours/sore throat. suspect viral syndrome vs strep. - strep neg. no meningmus. lungs cta. advise outpt fu and return precautions. neuro intact. 06/25/18 22:33 - Lab Interpretations Lab Results: Lab Results 08/03/18 20:35: Grp A Beta Strep Ag Negative - Medication Orders Current Medication Orders: Discontinued Medications Acetaminophen (Tylenol 325mg Tab) 975 mg PO STAT STA Stop: 06/25/18 20:08 Last Admin: 06/25/18 20:43 Dose: 975 mg MAR Pain/Vitals Document 06/25/18 20:43 AD (Rec: 06/25/18 20:43 AD [id number]) Vitals Temperature (97.6 F-99.6 F) 100.4 F Temperature Source Oral Disposition/Present on Arrival - Present on Arrival Any Indicators Present on Arrival: No History of DVT/PE: No History of Uncontrolled Diabetes: No Urinary Catheter: No History of Decub. Ulcer: No History Surgical Site Infection Following: None - Disposition Have Diagnosis and Disposition been Completed?: Yes Diagnosis: Pharyngitis, Viral syndrome Disposition: HOME/ ROUTINE Disposition Time: 21:00 Condition: STABLE Discharge Instructions (ExitCare): Viral Pharyngitis, Sore Throat in Adults Additional Instructions: please follow up with your doctor/clinic. return to er with worsening symptoms or concerns. Referrals: [employer] [Outside] - Follow up with primary [facility] [Outside] - Follow up with primary Forms: [employer] (Nauruan)
[2018-06-25 21:55] VITALS: BP 120/79; PULSE 98; TEMP 99.6; O2SAT 100
== END 2018-06-25 21:15 | disposition home or self-care (01) ==
LOC: ED 19:11
DX: J02.9 Acute pharyngitis, unspecified (principal); B34.9 Viral infection, unspecified; F17.210 Nicotine dependence, cigarettes, uncomplicated; F20.9 Schizophrenia, unspecified

== ENCOUNTER 2018-11-22 14:38 | Emergency (ER) | payer OTHER ==
[2018-11-22 14:56] VITALS: BMI 42.5
[2018-11-22 15:00] VITALS: TEMP 98.7
--- NOTE | 2018-11-22 15:36 | ED PDOC ---
Arrival/HPI - General Chief Complaint: Weakness/Neurological Deficit Time Seen by Provider: 11/22/18 15:10 Historian: Patient - History of Present Illness Narrative History of Present Illness (Text): 11/22/18 15:29 47 year old female, with past medical history of hyperlipidemia, seizure disorder (on 750mg Keppra) and schizophrenia, presents to the ED for medical evaluation of a transient episode of confusion 1 hour prior to arrival. Patient states she was listening to music on her couch when she suddenly experienced lightheadness and difficulty remembering things for a few minutes. Patient was reportedly witnesses by her room mate, who subsequently called EMS. As per room mate, patient did not express any seizure like activity similar to her past episodes. Patient currently denies any somatic complaints. Patient denies any weakness, paresthesias, fevers, chills, headache, dizziness, syncope, chest pain, shortness of breath, dyspnea on exertion, cough, abdominal pain, nausea, vomiting, diarrhea, back pain, neck pain, or any other complaints. PMD: Dr. Owens Time/Duration: Prior to Arrival Symptom Onset: Gradual Symptom Course: Resolved Activities at Onset: Light Context: Home Past Medical History - Provider Review Nursing Documentation Reviewed: Yes - Infectious Disease Hx of Infectious Diseases: None - Tetanus Immunization Tetanus Immunization: Unknown - Reproductive Menopause: Yes - Cardiac Hx Cardiac Disorders: Yes - Pulmonary Hx Respiratory Disorders: Yes Hx Asthma: Yes - Neurological Hx Neurological Disorder: No Hx Seizures: Yes - HEENT Hx HEENT Disorder: No - Renal Hx Renal Disorder: No - Endocrine/Metabolic Hx Endocrine Disorders: No - Hematological/Oncological Hx Blood Disorders: No - Integumentary Hx Dermatological Disorder: No - Musculoskeletal/Rheumatological Hx Musculoskeletal Disorders: Yes Other/Comment: HIP PAIN L - Gastrointestinal Hx Gastrointestinal Disorders: Yes Hx Gastroesophageal Reflux: Yes - Genitourinary/Gynecological Hx Genitourinary Disorders: No - Psychiatric Hx Psychophysiologic Disorder: Yes Hx Bipolar Disorder: Yes Hx Schizophrenia: Yes Hx Substance Use: No - Past Surgical History Past Surgical History: No Previous - Surgical History Hx Cardiac Catheterization: No Hx Coronary Stent: No - Anesthesia Hx Anesthesia: No Hx Anesthesia Reactions: No Hx Malignant Hyperthermia: No - Suicidal Assessment Feels Threatened In Home Enviroment: No Family/Social History - Physician Review Nursing Documentation Reviewed: Yes Family/Social History: Unknown Family HX Smoking Status: Light Smoker < 10 Cigarettes Daily Hx Alcohol Use: No Hx Substance Use: No Allergies/Home Meds Allergies/Adverse Reactions: Allergies Penicillins Allergy (Verified 01/06/18 10:27) ANAPHYLAXIS Home Medications: Home Meds Medication Instructions Recorded Confirmed RX: Propranolol [Inderal] 10 mg PO DAILY 09/14/15 01/06/18 RX: Rosuvastatin Calcium [Crestor] 20 mg PO HS 09/14/15 01/06/18 RX: Venlafaxine [Effexor XR] 150 mg PO BID 09/14/15 01/06/18 RX: Bupropion HCl [Bupropion HCl 200 mg PO BID 03/22/17 01/06/18 Sr] RX: Cyclobenzaprine [Flexeril] 5 mg PO BID PRN 03/22/17 01/06/18 RX: Docusate Sodium [Sof-Lax] 100 mg PO DAILY 03/22/17 01/06/18 RX: Omeprazole 20 mg PO DAILY 03/22/17 01/06/18 RX: Quetiapine Fumarate 200 mg PO HS 03/22/17 01/06/18 [Quetiapine Fumarate ER] Review of Systems - Physician Review All systems were reviewed & negative as marked: Yes - Review of Systems Constitutional: absent: Fevers Respiratory: absent: SOB, Cough Cardiovascular: absent: Chest Pain Gastrointestinal: absent: Abdominal Pain, Diarrhea, Nausea, Vomiting Genitourinary Female: absent: Dysuria, Urine Output Changes Musculoskeletal: absent: Back Pain, Neck Pain Skin: absent: Rash Neurological: absent: Headache, Dizziness Physical Exam Vital Signs Reviewed: Yes Vital Signs Temp Pulse Resp BP Pulse Ox 11/22/18 14:38 98.7 F 95 H 20 137/83 98 Temperature: Afebrile Blood Pressure: Normal Pulse: Regular Respiratory Rate: Normal Appearance: Positive for: Well-Appearing, Non-Toxic, Comfortable Pain Distress: None Mental Status: Positive for: Alert and Oriented X 3 - Systems Exam Head: Present: Atraumatic, Normocephalic Pupils: Present: PERRL Extroacular Muscles: Present: EOMI Conjunctiva: Present: Normal Mouth: Present: Moist Mucous Membranes Neck: Present: Normal Range of Motion Respiratory/Chest: Present: Clear to Auscultation, Good Air Exchange. No: Respiratory Distress, Accessory Muscle Use Cardiovascular: Present: Regular Rate and Rhythm, Normal S1, S2. No: Murmurs Abdomen: No: Tenderness, Distention, Peritoneal Signs Back: Present: Normal Inspection Upper Extremity: Present: Normal Inspection. No: Cyanosis, Edema Lower Extremity: Present: Normal Inspection. No: Edema Neurological: Present: GCS=15, CN II-XII Intact, Speech Normal, Motor Func Grossly Intact, Normal Sensory Function, Normal Cerebellar Funct Skin: Present: Warm, Dry, Normal Color. No: Rashes Psychiatric: Present: Alert, Oriented x 3, Normal Insight, Normal Concentration Medical Decision Making ED Course and Treatment: 11/22/18 15:37 Impression: 47 year old female presents to the ED for evaluation of a transient episode of confusion. Plan: -- Labs -- Chest X-ray -- CT of Head -- Reassess and disposition Prior Visits: Notes and results from previous visits were reviewed. Progress Notes: 11/22/18 17:46 Chest X-ray reviewed by radiologist, shows no active disease. 11/22/18 17:50 EKG: Ordered, reviewed, and independently interpreted the EKG. Rate : 95 BPM Rhythm : Poor tracing for rhythm Interpretation : No ST-segment elevations, normal interval, normal axis. 11/22/18 18:00 CT of head reviewed by radiologist, shows no acute intracranial abnormality. 11/22/18 18:11 Patient states she wants to go home. Patient will be discharged home with follow-up instructions with PMD. Patient states feeling better and would like to go home. Patient is very well appearing and non-toxic. Vital signs are stable. I discussed the results of the work-up, diagnosis and treatment. Written discharge instructions were provided to patient. Additional verbal instructions were given and discussed with patient. We discussed the importance of follow up with PCP/consultants. I also reiterated reasons to immediately return to the ER including: worsening in current symptoms and/or new, continued, or concerning symptoms. Pt understood and agreed. - RAD Interpretation Make Up Editor: Radiologist - EKG Interpretation Interpreted by ED Physician: Yes Type: 12 lead EKG NIHSS Scale ([place]) Time Performed: 15:49 - How Severe is the Stoke Baseline Level of Consciousness: 0=Alert LOC to Questions: 0=Both comments correct LOC to commands: 0=Obeys both correctly Best Gaze: 0=Normal Visual: 0=No visual loss Facial: 0=Normal Motor Arm - Left: 0=No drift Motor Arm - Right: 0=No drift Motor Leg - Left: 0=No drift Motor Leg - Right: 0=No drift Limb Ataxia: 0=Absent Sensory: 0=Normal Best Language: 0=No aphasia Dysarthia: 0=Normal articulation Extinction & Inattention (Neglect): 0=Normal, no object Score: 0 Risk Level: No Stroke Risk - Scribe Statement The provider has reviewed the documentation as recorded by the Scribe Tyler Julio. All medical record entries made by the Scribe were at my direction and personally dictated by me. I have reviewed the chart and agree that the record accurately reflects my personal performance of the history, physical exam, medical decision making, and the department course for this patient. I have also personally directed, reviewed, and agree with the discharge instructions and disposition. Disposition/Present on Arrival - Present on Arrival Any Indicators Present on Arrival: No History of DVT/PE: No History of Uncontrolled Diabetes: No Urinary Catheter: No History of Decub. Ulcer: No History Surgical Site Infection Following: None - Disposition Have Diagnosis and Disposition been Completed?: Yes Diagnosis: Lightheadedness, Anemia Disposition: HOME/ ROUTINE Disposition Time: 18:15 Patient Plan: Discharge Condition: IMPROVED Discharge Instructions (ExitCare): Dizziness, Nonvertigo, (DC), Normocytic Normochromic Anemia (DC) Additional Instructions: MEDARDO NG, thank you for letting us take care of you today. Your provider was Kerry Rizzo MD and you were treated for stroke. The emergency medical care you received today was directed at your acute symptoms. If you were prescribed any medication, please fill it and take as directed. It may take several days for your symptoms to resolve. Return to the Emergency Department if your symptoms worsen, do not improve, or if you have any other problems. Please contact your doctor in 2 days for follow up appointment (see if your doctor wants to move your appointment up from the previously scheduled one on November 29). Bring any paperwork you were given at discharge with you along with any medications you are taking to your follow up visit. Our treatment cannot replace ongoing medical care by a primary care provider outside of the emergency department. Thank you for allowing the [facility] team to be part of your care today. Referrals: Simi Owens MD [Primary Care Provider] - Follow up with primary Forms: [employer] (Greek)
[2018-11-22 16:23] LABS: BASO # 0.02 K/mm3 (0.0-2.0); BASO % 0.3 % (0.0-3.0); EOS # 0.4 (0.0-0.7); EOS % 5.8 % (1.5-5.0); GRAN # 3.89 (1.4-6.5); GRAN % 54.5 % (50.0-68.0); HEMOGLOBIN 9.9 g/dL (12.0-16.0); LYMPH # 2.4 (1.2-3.4); LYMPH % 33.2 % (22.0-35.0); MEAN CELL VOLUME 76.6 fl (80.0-105.0); MEAN CORPUSCULAR HEMOGLOBIN 23.4 pg (25.0-35.0); MEAN CORPUSCULAR HGB CONC 30.6 g/dl (31.0-37.0); MEAN PLATELET VOLUME 8.7 fl (7.0-11.0); MONO # 0.4 (0.1-0.6); MONO % 6.2 % (1.0-6.0); RBC 4.23 10^6/uL (3.5-6.1); RED CELL DISTRIBUTION WIDTH 17.4 % (11.5-14.5); WHITE BLOOD COUNT 7.1 10^3/uL (4.5-11.0)
[2018-11-22 16:30] LABS: ALB/GLOB RATIO 1.3 (1.1-1.8); ALBUMIN 4.4 g/dL (3.0-4.8); ALT/SGPT 30 U/L (7-56); AST/SGOT 31 U/L (14-36); BLOOD UREA NITROGEN 10 mg/dL (7-21); CALCIUM 9.7 mg/dL (8.4-10.5); GFR NON-AFRICAN AMERICAN > 60
[2018-11-22 16:42] LABS: TROPONIN I < 0.01 ng/mL
--- NOTE | 2018-11-22 16:50 | RAD ---
Date of service: 11/22/2018 HISTORY: ams COMPARISON: 03/22/2017 FINDINGS: LUNGS: No active pulmonary disease. PLEURA: No significant pleural effusion identified, no pneumothorax apparent. CARDIOVASCULAR: No aortic atherosclerotic calcification present. Normal cardiac size. No pulmonary vascular congestion. OSSEOUS STRUCTURES: No significant abnormalities. VISUALIZED UPPER ABDOMEN: Normal. OTHER FINDINGS: None. IMPRESSION: No active disease.
[2018-11-22 17:09] VITALS: RESP 18
--- NOTE | 2018-11-22 17:47 | CT ---
Date of service: 11/22/2018 PROCEDURE: CT HEAD WITHOUT CONTRAST. HISTORY: ams COMPARISON: CT head with/without contrast performed 03/23/17 TECHNIQUE: Axial computed tomography images were obtained through the head/brain without intravenous contrast. Radiation dose: Total exam DLP = 1179.61 mGy-cm. This CT exam was performed using one or more of the following dose reduction techniques: Automated exposure control, adjustment of the mA and/or kV according to patient size, and/or use of iterative reconstruction technique. FINDINGS: HEMORRHAGE: No intracranial hemorrhage. BRAIN: No mass effect or edema. The aparicio-white matter differentiation appears intact. Please note that MRI with diffusion imaging is more sensitive in the detection of acute ischemic event. VENTRICLES: No hydrocephalus. CALVARIUM: Unremarkable. PARANASAL SINUSES: Unremarkable as visualized. No significant inflammatory changes. MASTOID AIR CELLS: Unremarkable as visualized. No inflammatory changes. OTHER FINDINGS: None. IMPRESSION: No acute intracranial pathology identified.
[2018-11-22 19:00] VITALS: BP 110/72; PULSE 90; O2SAT 99
--- NOTE | 2018-11-23 10:40 | CARD ---
APPROVED REPORT Date of service: 11/22/2018 EKG Measurement Heart [id number] <Conclusion> Accelerated Junctional rhythm Nonspecific ST and T wave abnormality Abnormal ECG
== END 2018-11-22 18:35 | disposition home or self-care (01) ==
LOC: ED 14:38
DX: D64.9 Anemia, unspecified (principal); R42 Dizziness and giddiness; E78.5 Hyperlipidemia, unspecified; F20.9 Schizophrenia, unspecified; F17.210 Nicotine dependence, cigarettes, uncomplicated; G40.909 Epilepsy, unspecified, not intractable, without status epilepticus
CPT/HCPCS: 70450; 71045; 80053; 82550; 83615; 83735; 84443; 84484; 85025; 93005; 99285; G0480

== ENCOUNTER 2019-03-10 11:39 | Inpatient (IN) | payer OTHER ==
[2019-03-10 14:10] LABS: BASO # 0.03 K/mm3 (0.0-2.0); BASO % 0.3 % (0.0-3.0); EOS % 0.3 % (1.5-5.0); HEMOGLOBIN 10.8 g/dL (12.0-16.0); LYMPH # 1.5 (1.2-3.4); LYMPH % 16.2 % (22.0-35.0); MEAN CELL VOLUME 72.3 fl (80.0-105.0); MEAN CORPUSCULAR HEMOGLOBIN 22.5 pg (25.0-35.0); MEAN CORPUSCULAR HGB CONC 31.1 g/dl (31.0-37.0); MEAN PLATELET VOLUME 9.2 fl (7.0-11.0); MONO # 0.5 (0.1-0.6); MONO % 5.5 % (1.0-6.0); RBC 4.8 10^6/uL (3.5-6.1); WHITE BLOOD COUNT 9.1 10^3/uL (4.5-11.0)
[2019-03-10 14:12] LABS: ACETAMINOPHEN < 10.0 ug/ml (10.0-20.0); SALICYLATE < 1 mg/dL (2.0-20.0)
--- NOTE | 2019-03-10 14:17 | ED PDOC ---
Arrival/HPI - General Chief Complaint: Psychiatric Evaluation Time Seen by Provider: 03/10/19 11:42 Historian: Patient - History of Present Illness Narrative History of Present Illness (Text): 03/10/19 14:10 48 year old female, with a past medical history of schizophrenia, who presents to the emergency department brought in by EMS for psychiatric evaluation. Patient reports she left her home this morning at 2am because she no longer wanted to stay with her roommate. She endorses waiting outside a local [employer] since 2am for her to pick her up, but her did not show up and an ambulance was called. Patient reports her is presently outside of the hospital and describes her appearance as "blonde hair with blue eyes". Patient denies any fevers, chills, headaches, dizziness, homicidal ideation, suicidal ideation, or any other complaints. Time/Duration: 24 hours Symptom Onset: Gradual Symptom Course: Unchanged Activities at Onset: Light Context: Home Past Medical History - Provider Review Nursing Documentation Reviewed: Yes - Infectious Disease Hx of Infectious Diseases: None - Tetanus Immunization Tetanus Immunization: Unknown - Reproductive Menopause: Yes - Cardiac Hx Cardiac Disorders: No Hx Hypertension: No - Pulmonary Hx Tuberculosis: No - Neurological HX Cerebrovascular Accident: No Hx Seizures: No - HEENT Hx HEENT Disorder: No - Renal Hx Renal Disorder: No - Endocrine/Metabolic Hx Endocrine Disorders: No - Hematological/Oncological Hx Cancer: No - Integumentary Hx Dermatological Disorder: No - Musculoskeletal/Rheumatological Hx Musculoskeletal Disorders: Yes Other/Comment: HIP PAIN L - Gastrointestinal Hx Gastrointestinal Disorders: Yes Hx Gastroesophageal Reflux: Yes - Genitourinary/Gynecological Hx Sexually Transmitted Diseases: No - Psychiatric Hx Psychophysiologic Disorder: Yes Hx Bipolar Disorder: Yes Hx Schizophrenia: Yes Hx Substance Use: No - Past Surgical History Past Surgical History: No Previous - Surgical History Hx Cardiac Catheterization: No Hx Coronary Stent: No - Anesthesia Hx Anesthesia: No Hx Anesthesia Reactions: No Hx Malignant Hyperthermia: No - Suicidal Assessment Feels Threatened In Home Enviroment: No Family/Social History - Physician Review Nursing Documentation Reviewed: Yes Family/Social History: Unknown Family HX Smoking Status: Light Smoker < 10 Cigarettes Daily Hx Alcohol Use: No Hx Substance Use: No Allergies/Home Meds Allergies/Adverse Reactions: Allergies Penicillins Allergy (Verified 01/06/18 10:27) ANAPHYLAXIS Home Medications: Home Meds Medication Instructions Recorded Confirmed ARIPiprazole [Abilify] 10 mg PO DAILY 03/10/19 03/10/19 Amitriptyline [Elavil] 75 mg PO HS 03/10/19 03/10/19 Cyclobenzaprine [Cyclobenzaprine 10 mg PO HS 03/10/19 03/10/19 HCl] Esomeprazole Magnesium [Nexium] 40 mg PO DAILY 03/10/19 03/10/19 Estradiol [Minerva] 0.0375 mg ID QWK 03/10/19 03/10/19 Promethazine DM [Phenergan DM 5 ml PO TID PRN 03/10/19 03/10/19 Syrup] Rosuvastatin Calcium [Crestor] 20 mg PO DAILY 03/10/19 03/10/19 Suvorexant [Belsomra] 5 mg PO PRN PRN 03/10/19 03/10/19 Venlafaxine [Effexor XR] 150 mg PO TID 03/10/19 03/10/19 Vortioxetine Hydrobromide 5 mg PO DAILY 03/10/19 03/10/19 [Trintellix] clonazePAM [Klonopin] 0.5 mg PO BID 03/10/19 03/10/19 hydrOXYzine HCl [Atarax] 50 mg PO TID 03/10/19 03/10/19 Review of Systems - Physician Review All systems were reviewed & negative as marked: Yes - Review of Systems Constitutional: Fatigue. absent: Fevers Respiratory: absent: SOB, Cough Cardiovascular: absent: Chest Pain, Palpitations Gastrointestinal: absent: Nausea, Vomiting Genitourinary Female: absent: Dysuria, Frequency, Hematuria Musculoskeletal: absent: Arthralgias, Back Pain, Neck Pain Neurological: absent: Headache, Dizziness Psychiatric: absent: Anxiety, Depression, Suicidal Ideation Physical Exam Vital Signs Reviewed: Yes Vital Signs Temp Pulse Resp BP Pulse Ox 03/10/19 14:04 85 18 157/69 H 95 03/10/19 12:52 97.7 F 113 H 22 151/95 H 99 Temperature: Afebrile Blood Pressure: Hypertensive Pulse: Tachycardic Respiratory Rate: Normal Appearance: Positive for: Well-Appearing, Non-Toxic, Comfortable Pain Distress: None Mental Status: Positive for: Alert and Oriented X 3 - Systems Exam Head: Present: Atraumatic, Normocephalic Pupils: Present: PERRL Extroacular Muscles: Present: EOMI Conjunctiva: Present: Normal Mouth: Present: Moist Mucous Membranes Neck: Present: Normal Range of Motion Respiratory/Chest: Present: Clear to Auscultation, Good Air Exchange. No: Respiratory Distress, Accessory Muscle Use Cardiovascular: Present: Regular Rate and Rhythm, Normal S1, S2. No: Murmurs Abdomen: No: Tenderness, Distention, Peritoneal Signs Back: Present: Normal Inspection Upper Extremity: Present: Normal Inspection. No: Cyanosis, Edema Lower Extremity: Present: Normal Inspection. No: Edema Neurological: Present: GCS=15, Speech Normal Skin: Present: Warm, Dry, Normal Color. No: Rashes Psychiatric: Present: Alert, Oriented x 3, Delusional Medical Decision Making ED Course and Treatment: 03/10/19 14:43 Patient is nontoxic well-appearing in no distress CBC WNL CMP K: 2.8 Tylenol WNL Salicylate WNL Alcohol level WNL cxr: wnl urine pending ekg accelerated junctional rhythm and [address] elevations QTC 628. ekg REPEATED; second EKG shows sinus tachycardia at 112 bpm with a QTC of 398. No ST elevations. case discussed with dr. aleman; accepts admission pt with K; 2.8. given k rider in er; 40meq po ordered. impression; hypokalemia, delusional admit to tele with PES consult. 03/10/19 19:42 - RAD Interpretation Radiology Orders: 03/10/19 13:26 CHEST PORTABLE [RAD] Stat - PA / MATTRESS FILLING MACHINE TENDER / Resident Statement STONE has reviewed & agrees with the documentation as recorded. STONE has examined the patient and agrees with the treatment plan. - Scribe Statement The provider has reviewed the documentation as recorded by the Polo Lopez Provider Scribe Attestation: All medical record entries made by the Polo were at my direction and personally dictated by me. I have reviewed the chart and agree that the record accurately reflects my personal performance of the history, physical exam, medical decision making, and the department course for this patient. I have also personally directed, reviewed, and agree with the discharge instructions and disposition. Disposition/Present on Arrival - Present on Arrival Any Indicators Present on Arrival: No History of DVT/PE: No History of Uncontrolled Diabetes: No Urinary Catheter: No History of Decub. Ulcer: No History Surgical Site Infection Following: None - Disposition Have Diagnosis and Disposition been Completed?: Yes Diagnosis: Hypokalemia Disposition: HOSPITALIZED Disposition Time: 15:30 Patient Plan: Admission, Telemetry Patient Problems: Current Active Problems Problem Status Onset Hypokalemia Acute Condition: FAIR
[2019-03-10 14:18] LABS: ALB/GLOB RATIO 1.3 (1.1-1.8); ALBUMIN 4.7 g/dL (3.0-4.8); ALT/SGPT 11 U/L (7-56); AST/SGOT 37 U/L (14-36); BLOOD UREA NITROGEN 16 mg/dL (7-21); GFR NON-AFRICAN AMERICAN 53
--- NOTE | 2019-03-10 14:18 | RAD ---
Date of service: 03/10/2019 HISTORY: PES EVAL COMPARISON: 11/22/2018 TECHNIQUE: 1 view obtained. FINDINGS: LUNGS: No active pulmonary disease. PLEURA: No significant pleural effusion identified, no pneumothorax apparent. CARDIOVASCULAR: No aortic atherosclerotic calcification present. Normal cardiac size. No pulmonary vascular congestion. OSSEOUS STRUCTURES: No significant abnormalities. VISUALIZED UPPER ABDOMEN: Normal. OTHER FINDINGS: None. IMPRESSION: No active disease.
[2019-03-10] MEDS ORDERED: Potassium Chloride 20 mEq 100 ML IVPB ONE (14:41)
[2019-03-10] MEDS ORDERED: Potassium Chloride 40 mEq/30 ml LIQ UD PO STA (14:41)
[2019-03-10] MEDS ORDERED: Potassium Chloride 20 mEq ER Tab PO STA (15:32)
[2019-03-10] MEDS ORDERED: Non Formulary Medication (Venlafaxine [Effexor Xr] 150 MG) PO SCH (18:00)
[2019-03-10] MEDS: Venlafaxine 75 mg ER Cap PO SCH ×2 (18:37→18:42)
--- NOTE | 2019-03-10 19:03 | CARD ---
APPROVED REPORT Date of service: 03/10/2019 EKG Measurement Heart [id number] <Conclusion> Sinus tachycardia Nonspecific ST and T wave abnormality Abnormal ECG
[2019-03-10 20:37] LABS: HDL CHOLESTEROL 72 mg/dL (29-60)
[2019-03-10 20:48] LABS: LDL CHOLESTEROL 52 mg/dL (0-129)
--- NOTE | 2019-03-10 21:27 | CON ---
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 The patient was brought in by EMS for psychiatric evaluation. The patient left her home because she refused to stay with her roommate. She endorsed waiting outside, at [facility], since 02:00 a.m. for her to pick her up, but bystanders called police because the patient was bizarre and was looking for a lady "blonde hair with blue eyes." The patient was evaluated today in the emergency room. The patient presented to be disorganized, very hard to understand what she is saying. The patient was looking for her spouse. The patient is not sure what her spouse name is. The patient reported that she is under the care of nurse practitioner, Iglesia. She is compliant with her medications. The patient reported that she was on Effexor, Klonopin, and Elavil, and the patient fills her medications at [facility]. This bond writer reviewed the previous record. The patient does not have history of being admitted to [facility]. The patient was consulted by this bond writer in 2016. The patient has history of schizophrenia, also neurocognitive limitations. The patient has also history of seizure disorder. The patient denied hearing voices, denied seeing things, but obviously, the patient appeared to be paranoid and disorganized. PHYSICAL EXAMINATION: VITAL SIGNS: Reviewed. Temperature 97.7, pulse is 117, blood pressure 159/86, respirations 18, oxygen saturation is 97. MEDICATIONS: Reviewed. LABORATORY DATA: Labs reviewed. Potassium 2.8. Toxicology negative for any substances. MENTAL STATUS EXAMINATION: The patient appears to be with poor personal hygiene. Intermittent eye contact. Mood described as okay. Thought process seems to be circumstantial, tangential, and disorganized. Mood described as fine. Thought content, the patient presented to be with disorganized thought process, appears to be psychotic. Insight and judgment limited. Impulses are unpredictable. IMPRESSION: Mostly history of schizophrenia. PLAN: Most likely, the patient will be admitted to the medical side for electrolyte imbalance. This bond writer will be involved into the patient's care as a information systems consultant. This bond writer already offered the patient admission to the psychiatric inpatient unit, but the patient declined that offer. We will follow up on the patient on the medical side and advise accordingly. Thank you very much for letting me participate in care of your patient. Gisel Baptiste MD
--- NOTE | 2019-03-10 22:56 | HP ---
DATE OF EXAM: 03/10/2019 HISTORY OF PRESENT ILLNESS: The patient is a 48-year-old known to me from office practice, came to emergency room after she was found to be somewhat confused. The patient states she walked out of the room around 2 o'clock this morning and she was found standing outside since early this morning, somebody called ambulance and she was brought to emergency room for further evaluation. The patient states that she was waiting for her up. PAST MEDICAL HISTORY: 1. The patient does have a history of bipolar disorder. 2. History of schizophrenia. 3. Hypertension. 4. Chronic degenerative disk disease. 5. Gastroesophageal reflux disease. 6. History of schizophrenia. ALLERGIES: SHE IS ALLERGIC TO PENICILLIN. MEDICATIONS AT HOME: She is on Flexeril 10 mg at bedtime, she is on Trintellix, she is on Klonopin 0.5 twice a day, she is on Nexium 40 mg daily, Atarax 50 mg 3 times a day, she is on Effexor 150 3 times a day, Belsomra as needed, Elavil 75 mg at bedtime, Crestor 20 mg daily, Abilify 10 mg daily, and Minerva. SOCIAL HISTORY: She lives with her roommate and she denies smoking. She denies alcohol use; however, she still smokes. PHYSICAL EXAMINATION: GENERAL: Seems to be awake and alert, able to communicate. VITAL SIGNS: She is afebrile, pulse 130, respirations 22, and blood pressure 151/95. LUNGS: Bilateral fair airflow. No rhonchi or crackles. HEART: S1 and S2 audible. ABDOMEN: Soft, obese, and nontender. No rebound. No guarding. NEUROLOGIC: The patient is awake and alert, able to communicate. LABORATORY DATA: WBC 9.1, hemoglobin 10.8, hematocrit 34.7, and platelets 356. Chemistry; sodium 136, potassium 2.8, chloride 97, CO2 of 27, BUN 16, creatinine 1.1, and blood sugar 121. 37. Urine toxicology is negative. ASSESSMENT: 1. Altered mental status. 2. Hypokalemia. 3. History of bipolar disorder. 4. Chronic back pain. 5. History of seizure disorder. PLAN: The patient will be placed in observation. We will supplement her potassium, resume her psych medications. Psych evaluation has been requested. The patient refused to go to psych unit. Voluntary unit will be called. We will follow up her electrolyte in a.m. Simi Owens MD
[2019-03-10] MEDS ORDERED: Pneumococcal 23-Valent Vaccine IM ONE (23:06)
[2019-03-10 23:07] VITALS: BMI 38.0
[2019-03-10 23:45] LABS: URINE BILIRUBIN NEGATIVE (NEGATIVE); URINE BLOOD TRACE-INTACT (NEGATIVE); URINE GLUCOSE (UA) NEGATIVE (NEGATIVE); URINE LEUKOCYTE ESTERASE SMALL Leu/uL (NEGATIVE); URINE PROTEIN 30 mg/dL (<30 mg/dL); URINE UROBILINOGEN 0.2 E.U./dL (<1 E.U./dL)
[2019-03-10 23:46] LABS: URINE APPEARANCE TURBID (CLEAR); URINE COLOR YELLOW (YELLOW)
[2019-03-10 23:52] LABS: OPIATES, UR NEGATIVE (NEGATIVE); PHENCYCLIDINE, UR NEGATIVE (NEGATIVE)
[2019-03-10 23:56] LABS: URINE RBC 0 - 2 /hpf (0-2)
[2019-03-10 23:57] LABS: URINE BACTERIA LARGE /hpf
[2019-03-10 23:59] LABS: BARBITURATES, UR NEGATIVE (NEGATIVE); BENZODIAZEPINES, UR NEGATIVE (NEGATIVE)
[2019-03-11] MEDS: Pantoprazole 40 mg EC Tab PO SCH (05:32)
[2019-03-11 07:40] LABS: BASO # 0.02 K/mm3 (0.0-2.0); BASO % 0.3 % (0.0-3.0); EOS # 0.3 (0.0-0.7); EOS % 3.5 % (1.5-5.0); HEMOGLOBIN 9.8 g/dL (12.0-16.0); LYMPH # 1.7 (1.2-3.4); LYMPH % 22.9 % (22.0-35.0); MEAN CELL VOLUME 72.5 fl (80.0-105.0); MEAN CORPUSCULAR HEMOGLOBIN 22.5 pg (25.0-35.0); MEAN PLATELET VOLUME 9.2 fl (7.0-11.0); MONO # 0.4 (0.1-0.6); MONO % 5.1 % (1.0-6.0); RBC 4.36 10^6/uL (3.5-6.1); RED CELL DISTRIBUTION WIDTH 18.4 % (11.5-14.5); WHITE BLOOD COUNT 7.5 10^3/uL (4.5-11.0)
[2019-03-11 08:10] LABS: FREE T4 1.4 ng/dL (0.78-2.19)
[2019-03-11 08:19] LABS: ALB/GLOB RATIO 1.2 (1.1-1.8); ALBUMIN 4.1 g/dL (3.0-4.8); ALT/SGPT 22 U/L (7-56); AST/SGOT 68 U/L (14-36); BLOOD UREA NITROGEN 12 mg/dL (7-21); CALCIUM 9.3 mg/dL (8.4-10.5); GFR NON-AFRICAN AMERICAN > 60
[2019-03-11] MEDS: Venlafaxine 75 mg ER Cap PO SCH ×3 (09:44→17:58)
[2019-03-11] MEDS ORDERED: Potassium Chloride 40 mEq/30 ml LIQ UD PO STA ×2 (10:51→11:51)
--- NOTE | 2019-03-11 12:16 | CON ---
DATE: 03/11/2019 HISTORY OF PRESENT ILLNESS: The patient is a 48-year-old female with reported history of psychotic spectrum disorder, rule out schizophrenia versus schizoaffective disorder. The patient was brought in for psychiatric evaluation. The patient was standing outside waiting for her questionable/imaginary for 11 hours. The patient presented to be bizarre and disorganized. This public relations writer evaluated the patient in the emergency room yesterday. Please see initial evaluation for more detailed information. This public relations writer recommended screening based on presentation. The patient was confused and did not make any sense and appeared to be paranoid, but the patient required medical admission and this public relations writer is following up on the patient today. The patient was seen and examined today on the medical side. The patient presented to be guarded, paranoid. The patient was giving answers only yes or no. The patient reports that her is waiting for the patient outside. The patient was staring at this public relations writer and talk yes or no only. At the same time, the patient denied hearing voices, denied seeing things, denied paranoid ideation. Upon presentation, the patient is psychotic. The patient reports that she feels her medication in [facility]. This public relations writer contacted [facility], . The patient was on amitriptyline 75 mg 2 pills at the nighttime, venlafaxine 150 mg extended release 3 times a day, Belsomra 5 mg at the nighttime, Trintellix 5 mg daily, Abilify 10 mg daily, hydroxyzine 50 mg 3 times a day, Klonopin 0.5 mg twice a day, Keppra 750 mg twice a day. The patient filled this medication on 03/08 and prescriber is nurse practitioner, Iglesia Martinez. The patient is questionable compliant with the medication, because urine drug screen negative for any benzodiazepines, but the patient was prescribed benzodiazepines based on the patient's presentation. OBJECTIVE VITAL SIGNS: Reviewed. Temperature 97.9, pulse is 102, blood pressure 108/75, respirations 18, oxygen saturation is 94%. MEDICATIONS: Reviewed. The patient is on Elavil 75 mg at the nighttime, Abilify 10 mg daily, Klonopin 0.5 mg twice a day, Protonix, Effexor 150 mg 3 times a day. LABORATORY DATA: Labs reviewed. Hematology reviewed. Chemistry reviewed. Potassium was 2.8, today is improving 3.0. Urinalysis showed leukocyte esterase small. Toxicology was negative for any substances. Microbiology is not done. MENTAL STATUS EXAMINATION: The patient presented to be alert, poor personal hygiene, flat affect. Mood described as fine. Thought process seems to be disorganized. Thought content, the patient denied visual, auditory, or tactile hallucinations, but the patient presented to be disorganized, psychotic and bizarre. Insight and judgment seem to be very limited. Impulses are fairly controlled. PAST PSYCHIATRIC HISTORY: The patient denied history of being admitted to the Psychiatric Inpatient Unit currently under the care of [facility] nurse practitioner, Iglesia Martinez. The patient denied history of suicidal attempts in the past. This public relations writer reviewed the previous history here in [place]. The patient was evaluated by this public relations writer in 03/2017. This public relations writer offered the patient admission to the psychiatric inpatient unit for adjustment of her medication, but the patient declined that offer last time, and the patient presented similar way in 2017. IMPRESSION: As per history, schizoaffective disorder versus schizophrenia. PLAN: Medications were confirmed. Continue as it is. Trintellix is not formulary in the hospital. We will offer the patient admission to the psychiatric inpatient unit, but so far, the patient declined that offer. Over the weekend, Dr. Dhaliwal will follow up on this patient. Should you have any questions, give me a call back. Gisel Baptiste MD MTDRobert
--- NOTE | 2019-03-11 14:45 | PN ---
DATE: 03/11/2019 SUBJECTIVE: The patient is a 48-year-old who was brought in by ambulance after she was found to be , she says she was waiting for somebody to pick her up, but the car broke down and nobody showed up to pick her up and she did not want to go to her friend who she lives with because of some confrontation, so she was brought to emergency room and she was supposed to be going to psych unit, but she refused to go to voluntary psych unit and since she was hypokalemic we will give IV potassium and p.o. Her potassium still seems to be low. PHYSICAL EXAMINATION: GENERAL: She is awake and alert, able to communicate. VITAL SIGNS: The patient is afebrile, pulse 102, respirations 18, and blood pressure 108/75. LUNGS: Bilateral fair airflow. No rhonchi or crackles. HEART: S1 and S2 audible. ABDOMEN: Soft and nontender. No rebound. No guarding. NEUROLOGIC: The patient is awake and alert, able to communicate. LABORATORY DATA: WBC 7.5, hemoglobin 9.8, hematocrit 31.6, and platelets 306. Chemistry; sodium 138, potassium 3.0, chloride 99, CO2 of 31, BUN 12, creatinine 0.7, and blood sugar 135. ASSESSMENT: 1. History of bipolar disorder. 2. History of schizoaffective disorder. 3. Hypokalemia etiology unknown. 4. Chronic degenerative disc disease. PLAN: I will check her potassium level at 4:00 p.m. If potassium is okay, she will make a disposition plan. Simi Owens MD
[2019-03-11 17:31] LABS: BLOOD UREA NITROGEN 12 mg/dL (7-21); CALCIUM 9.3 mg/dL (8.4-10.5); GFR NON-AFRICAN AMERICAN > 60
[2019-03-12] MEDS: Pantoprazole 40 mg EC Tab PO SCH (06:00)
[2019-03-12 09:25] LABS: HEMOGLOBIN 9.7 g/dL (12.0-16.0); MEAN CELL VOLUME 73.8 fl (80.0-105.0); MEAN CORPUSCULAR HEMOGLOBIN 22.9 pg (25.0-35.0); MEAN PLATELET VOLUME 9.3 fl (7.0-11.0); RBC 4.24 10^6/uL (3.5-6.1); RED CELL DISTRIBUTION WIDTH 18.6 % (11.5-14.5); WHITE BLOOD COUNT 9.1 10^3/uL (4.5-11.0)
[2019-03-12 09:53] LABS: BLOOD UREA NITROGEN 15 mg/dL (7-21); GFR NON-AFRICAN AMERICAN > 60
[2019-03-12 09:54] LABS: ALB/GLOB RATIO 1.2 (1.1-1.8); ALBUMIN 3.9 g/dL (3.0-4.8); ALT/SGPT 14 U/L (7-56); AST/SGOT 43 U/L (14-36)
[2019-03-12] MEDS: Venlafaxine 75 mg ER Cap PO SCH ×3 (10:38→18:44)
[2019-03-12] MEDS ORDERED: Potassium Chloride 20 mEq/15 ml LIQ UD PO STA (11:01)
[2019-03-12] MEDS ORDERED: Potassium Chloride 20 mEq ER Tab PO ONE (12:20)
[2019-03-12 16:49] VITALS: RESP 20
--- NOTE | 2019-03-12 17:35 | CON ---
DATE: 03/12/2019 HISTORY OF PRESENT ILLNESS: The patient is a 48-year-old female with history of schizophrenia versus schizoaffective disorder was being seen by psychiatry due to bizarre and delusional behavior. Apparently, the patient was waiting outside for questionable/imaginary for 11 hours prior to admission. She was presented with bizarre and disorganized. Dr. Baptiste's required screening based on her presentation. She did not make sense and with confused and guarded and paranoid and I find her to be so as well today. Responding apprehensively yes or no to my questions. She symptoms. Although there has been no behavioral issues. She has been internally preoccupied and now forthcoming or engaged my visit with her today. She denies any psychosis, depression, or new concerns at this time. Reported she is tolerating her medications. Does not appeared to be responding to internal stimuli. The patient reports that "everything is fine." Insight and judgment are considered to be unknown at this time. The patient is very superficial and forthcoming. Labs and vitals were reviewed. Psychiatric medications include Elavil 75 at bedtime, Abilify 2 mg daily, Klonopin 0.5 twice a day and Effexor XR 150 twice a day. IMPRESSION: Schizoaffective disorder versus schizophrenia. PLAN: We will continue medications at this time. There is no acute indication ; however, the patient is not on whether she is go to the psychiatric admissions or her medication readjustment. The patient will continue to followup and advise accordingly. Thaddeus Dhaliwal MD
--- NOTE | 2019-03-13 00:23 | DS ---
HISTORY OF PRESENT ILLNESS: The patient is 48-year-old, seen and examined doing very well. She is fully awake, alert, oriented and communicative. PHYSICAL EXAMINATION: VITAL SIGNS: She is afebrile. Pulse 73, respirations 18 and blood pressure 125/78. LUNGS: Bilateral fair airflow. No rhonchi or crackle. HEART: S1 and S2, audible. ABDOMEN: Soft and nontender. Obese. No hepatosplenomegaly. NEUROLOGIC: The patient is awake and alert, able to communicate. LABORATORY DATA: WBC is 9.1, hemoglobin 9.7, hematocrit 31.3 and platelet 292. Chemistry: Sodium 138, potassium 3.4, chloride 101, CO2 of 29, BUN 15, creatinine 0.6 and blood sugar 160. ASSESSMENT: 1. Questionable altered mental status. 2. History of bipolar disorder. 3. Hypokalemia. 4. Chronic degenerative disc disease. 5. Low back pain. PLAN: We will give p.o. potassium 40 mEq and 1 IV rider and after that, she can be discharged home today. Simi Owens MD
[2019-03-13] MEDS: Pantoprazole 40 mg EC Tab PO SCH (06:13)
[2019-03-13 08:50] VITALS: BP 117/81; PULSE 93; TEMP 98.1; O2SAT 96
[2019-03-13 10:22] LABS: MEAN CELL VOLUME 74.9 fl (80.0-105.0); MEAN CORPUSCULAR HEMOGLOBIN 22.8 pg (25.0-35.0); MEAN CORPUSCULAR HGB CONC 30.5 g/dl (31.0-37.0); MEAN PLATELET VOLUME 9.2 fl (7.0-11.0); RBC 3.94 10^6/uL (3.5-6.1); RED CELL DISTRIBUTION WIDTH 18.9 % (11.5-14.5); WHITE BLOOD COUNT 7.7 10^3/uL (4.5-11.0)
[2019-03-13] MEDS: Venlafaxine 75 mg ER Cap PO SCH (10:39)
[2019-03-13 10:52] LABS: ALB/GLOB RATIO 1.2 (1.1-1.8); ALBUMIN 3.6 g/dL (3.0-4.8); ALT/SGPT 19 U/L (7-56); AST/SGOT 35 U/L (14-36); BLOOD UREA NITROGEN 14 mg/dL (7-21); CALCIUM 8.6 mg/dL (8.4-10.5); GFR NON-AFRICAN AMERICAN > 60
--- NOTE | 2019-03-14 08:39 | DS ---
HISTORY OF PRESENT ILLNESS: The patient is 48 years old who was brought to the emergency room after she left her home. She had some issue with her grandson and she left home around 4:00 in the morning and she was standing waiting for a friend to pick her up, but nobody came to pick her up. Somebody called police and she was brought to ER for evaluation. She was found to be hypokalemic. The patient was advised to be admitted in Psych Unit, but she refused, and so involuntary unit was mobilized and internally she was found to be stable and did not need any psych admission, so she is being discharged today. PHYSICAL EXAMINATION: GENERAL: She is awake and alert, able to communicate. VITAL SIGNS: She is afebrile. Pulse 93, respirations 20, blood pressure . LUNGS: Bilateral fair airflow. No rhonchi or crackles. HEART: S1 and S2 audible. ABDOMEN: Soft and nontender. No rebound. No guarding. NEUROLOGIC: She is awake, alert, oriented, communicative. LABORATORY EXAMINATION: WBC 7.7, hemoglobin 9.0, hematocrit 29.5, and platelets 307. Chemistry: Sodium 138, potassium 3.8, chloride 101, CO2 of 33, BUN 14, creatinine 0.6, blood sugar 105. ASSESSMENT: 1. Severe hypokalemia. 2. History of bipolar disorder. 3. Chronic degenerative disc disease. 4. Active smoker. 5. History of bipolar disorder. PLAN: The patient is cleared by Psych and she is being discharged home today. She will resume her medications that she takes for her anxiety that include Abilify, Crestor, Elavil, Effexor, Klonopin and Trintellix. I will see her in office in 2 weeks. Simi Owens MD
--- NOTE | 2019-03-14 08:42 | PN ---
DATE: 03/13/2019 HISTORY OF PRESENT ILLNESS: The patient is a 48-year-old female with a history of schizoaffective disorder, who is being seen by Psychiatry due to bizarre, delusional behavior. I reviewed recent notes and that with the patient at bedside yesterday and today; and the patient's presentation actually has improved dramatically and it does appear that she initially was presenting with symptoms of delirium as opposed to schizophrenic decompensation as she is well oriented, coherent without any evidence of any psychosis or delusions at this time. Nonetheless, screening was called and just viably so. The patient was not considered to be eligible for involuntary commitments and his provider agreed online. Interview with her yesterday and today as well as speaking with staff members who also have noted a dramatic change status and consistency of improvement of her mental status. At this time, I will sign off and the patient is psychiatrically cleared for discharge. IMPRESSION: 1. Schizoaffective disorder by history, noncontributory at this time. 2. Delirium, much improved. PLAN: Psychiatry will sign off. The patient should continue psychiatric medications and continue to follow up with the psychiatrist, Dr. Parekh when she is medically cleared and discharged. Thaddeus Dhaliwal MD
== END 2019-03-13 13:38 | disposition home or self-care (01) | DRG 641 ==
LOC: ED 11:39 → ERH 16:10 → 2RSO 03-11 00:11 → 3RSO 03-11 17:35
PROVIDERS: ADMIT Internal Medicine; ATTEND Internal Medicine
DX: E87.6 Hypokalemia (principal); F25.9 Schizoaffective disorder, unspecified; F31.9 Bipolar disorder, unspecified; G40.909 Epilepsy, unspecified, not intractable, without status epilepticus; I10 Essential (primary) hypertension; K21.9 Gastro-esophageal reflux disease without esophagitis; Z88.0 Allergy status to penicillin

== ENCOUNTER 2019-03-16 13:21 | Emergency (ER) | payer OTHER ==
[2019-03-16 13:22] VITALS: BMI 38.0
--- NOTE | 2019-03-16 13:33 | ED PDOC ---
Arrival/HPI - General Chief Complaint: Psychiatric Evaluation Historian: Patient, EMS - History of Present Illness Narrative History of Present Illness (Text): 03/16/19 13:29 48 y/o female, pmh including seizure, psychiatric history including bipolar, pen icillin allergy, bib police because she has been sitting outside the hospital. Pt. stated that she was just sitting outside, talking to herself which she stated that she always do, no homicidal or suicidal ideation, no auditory or visual hallucination, no chest pain or palpitation, no numbness or tingling, no abdominal or pelvic pain, no nausea/vomiting, no other medical or psychological complaints. Past Medical History - Provider Review Nursing Documentation Reviewed: Yes - Infectious Disease Hx of Infectious Diseases: None - Tetanus Immunization Tetanus Immunization: Unknown - Cardiac Hx Cardiac Disorders: Yes (SVT) - Pulmonary Hx Respiratory Disorders: Yes (SMOKES CIGARETTES) Hx Asthma: Yes Hx Bronchitis: Yes Hx Chronic Obstructive Pulmonary Disease (COPD): Yes Hx Sleep Apnea: Yes - Neurological Hx Neurological Disorder: Yes HX Cerebrovascular Accident: Yes (SOME SLURRY SPEECH) - HEENT Hx HEENT Disorder: No - Renal Hx Renal Disorder: No - Endocrine/Metabolic Hx Endocrine Disorders: No - Hematological/Oncological Hx Blood Disorders: Yes Hx Anemia: Yes - Integumentary Hx Dermatological Disorder: No - Musculoskeletal/Rheumatological Hx Musculoskeletal Disorders: Yes Hx Back Pain: Yes Hx Falls: Yes Hx Unsteady Gait: Yes (ROLLATOR) - Gastrointestinal Hx Gastrointestinal Disorders: Yes (BARIATRIC SX) - Genitourinary/Gynecological Hx Genitourinary Disorders: Yes Hx Urinary Tract Infection: Yes - Psychiatric Hx Psychophysiologic Disorder: Yes Hx Anxiety: Yes Hx Bipolar Disorder: Yes Hx Depression: Yes Hx Schizophrenia: Yes Hx Substance Use: No - Past Surgical History Past Surgical History: No Previous - Surgical History Hx Cardiac Catheterization: No Hx Coronary Stent: No - Anesthesia Hx Anesthesia: No Hx Anesthesia Reactions: No Hx Malignant Hyperthermia: No - Suicidal Assessment Feels Threatened In Home Enviroment: No Family/Social History - Physician Review Nursing Documentation Reviewed: Yes Family/Social History: Unknown Family HX Smoking Status: Current Some Days Smoker Hx Alcohol Use: No Hx Substance Use: No Allergies/Home Meds Allergies/Adverse Reactions: Allergies Penicillins Allergy (Verified 03/16/19 13:28) ANAPHYLAXIS Home Medications: Home Meds Medication Instructions Recorded Confirmed ARIPiprazole [Abilify] 10 mg PO DAILY 03/10/19 03/10/19 Amitriptyline [Elavil] 75 mg PO HS 03/10/19 03/10/19 Cyclobenzaprine [Flexeril] 10 mg PO HS 03/10/19 03/10/19 Esomeprazole Magnesium [Nexium] 40 mg PO DAILY 03/10/19 03/10/19 Estradiol [Minerva] 0.0375 mg ID QWK 03/10/19 03/10/19 Promethazine DM [Phenergan DM 5 ml PO TID PRN 03/10/19 03/10/19 Syrup] Rosuvastatin Calcium [Crestor] 20 mg PO DAILY 03/10/19 03/10/19 Suvorexant [Belsomra] 5 mg PO PRN PRN 03/10/19 03/10/19 Venlafaxine [Effexor XR] 150 mg PO TID 03/10/19 03/10/19 Vortioxetine Hydrobromide 5 mg PO DAILY 03/10/19 03/10/19 [Trintellix] clonazePAM [Klonopin] 0.5 mg PO BID 03/10/19 03/10/19 hydrOXYzine HCl [Atarax] 50 mg PO TID 03/10/19 03/10/19 Review of Systems - Review of Systems Constitutional: absent: Fatigue, Fevers Eyes: absent: Vision Changes ENT: absent: Hearing Changes Respiratory: absent: SOB, Cough Cardiovascular: absent: Chest Pain Gastrointestinal: absent: Abdominal Pain, Diarrhea, Nausea, Vomiting Musculoskeletal: absent: Arthralgias, Back Pain Skin: absent: Rash, Pruritis Neurological: absent: Headache, Dizziness Psychiatric: absent: Anxiety, Depression, Suicidal Ideation Physical Exam - Systems Exam Head: Present: Atraumatic, Normocephalic Pupils: Present: PERRL Extroacular Muscles: Present: EOMI Conjunctiva: Present: Normal Mouth: Present: Moist Mucous Membranes Neck: Present: Normal Range of Motion Respiratory/Chest: Present: Clear to Auscultation, Good Air Exchange. No: Respiratory Distress, Accessory Muscle Use Cardiovascular: Present: Regular Rate and Rhythm, Normal S1, S2. No: Murmurs Abdomen: No: Tenderness, Distention, Peritoneal Signs Back: Present: Normal Inspection Upper Extremity: Present: Normal Inspection. No: Cyanosis, Edema Lower Extremity: Present: Normal Inspection. No: Edema Neurological: Present: GCS=15, CN II-XII Intact, Speech Normal, Motor Func Grossly Intact, Normal Cerebellar Funct, Gait Normal, Memory Normal Skin: Present: Warm, Dry, Normal Color. No: Rashes Psychiatric: Present: Alert, Oriented x 3, Normal Insight, Normal Concentration, Normal Mood Medical Decision Making ED Course and Treatment: 03/16/19 13:33 -Pt. is medically clear and stable at this time for psychiatric evaluation. -Pt. is eating lunch, pleasant, offer no medical or psychological complaints. -I spoke to Psy screener, he will come to evaluate the patient. 03/16/19 14:26 -Pt. evaluated by the PES screener, clear from psychiatric point of view, pt. has psychiatrist for follow up. -Pt. offers no medical or psychological complaints. Pt. stated that she has no cardiopulmonary or neurological complaints, eager to be out of the ER as she is angry that she is brought to the ER for unnecessary evaluation. Pt. refused further evaluation. -Discharge home with education on follow up with your own pmd and psychiatrist within 2 days, return to the ER for any new or worsening signs or symptoms. - PA / MINCING MACHINE OPERATOR / Resident Statement MD/DO has reviewed & agrees with the documentation as recorded. Disposition/Present on Arrival - Present on Arrival Any Indicators Present on Arrival: No History of DVT/PE: No History of Uncontrolled Diabetes: No Urinary Catheter: No History of Decub. Ulcer: No History Surgical Site Infection Following: None - Disposition Have Diagnosis and Disposition been Completed?: Yes Diagnosis: Psychiatric care Disposition: HOME/ ROUTINE Disposition Time: 13:34 Patient Plan: Discharge Patient Problems: Current Active Problems Problem Status Onset Psychiatric care Acute Condition: GOOD Additional Instructions: -Discharge home with education on follow up with your own pmd and psychiatrist within 2 days, return to the ER for any new or worsening signs or symptoms. Referrals: [facility] [place] [Outside] - Follow up with [facility] [Outside] - Follow up with primary Forms: [employer] (Filipino)
[2019-03-16 14:31] VITALS: BP 139/86; PULSE 100; RESP 20; TEMP 98.5; O2SAT 100
== END 2019-03-16 14:41 | disposition home or self-care (01) ==
LOC: ED 13:21
DX: Z00.8 Encounter for other general examination (principal); F17.210 Nicotine dependence, cigarettes, uncomplicated

== ENCOUNTER 2019-03-17 02:39 | Inpatient (IN) | payer OTHER ==
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
[2019-03-17 03:49] VITALS: O2SAT 100
--- NOTE | 2019-03-17 08:08 | ED PDOC ---
Physical Exam Vital Signs Temp Pulse Resp BP Pulse Ox 03/17/19 07:30 75 18 132/74 100 03/17/19 03:00 98.3 F 84 18 138/85 100 Medical Decision Making ED Course and Treatment: 03/17/19 07:[address] alcantar, pending psych screen and final disposition 08:[address] stahl, accepts patient to service for inpt tx. cancel [facility] screen. Disposition/Present on Arrival - Present on Arrival Any Indicators Present on Arrival: No History of DVT/PE: No History of Uncontrolled Diabetes: No Urinary Catheter: No History of Decub. Ulcer: No History Surgical Site Infection Following: None - Disposition Have Diagnosis and Disposition been Completed?: Yes Diagnosis: Schizophrenia Disposition: HOSPITALIZED Disposition Time: 08:08 Patient Plan: Admission Condition: STABLE Forms: [employer] (Telugu)
[2019-03-17 09:40] LABS: BARBITURATES, UR NEGATIVE (NEGATIVE); BENZODIAZEPINES, UR NEGATIVE (NEGATIVE); OPIATES, UR NEGATIVE (NEGATIVE); PHENCYCLIDINE, UR NEGATIVE (NEGATIVE)
[2019-03-17 12:46] VITALS: BMI 44.6
[2019-03-17] MEDS ORDERED: Non Formulary Medication (Venlafaxine [Effexor Xr] 150 MG) PO SCH (13:00)
[2019-03-17] MEDS ORDERED: Venlafaxine 75 mg ER Cap PO ONE (13:05)
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
--- NOTE | 2019-03-17 15:56 | PCM.BM ---
<Rashid Thomas - Last Filed: 03/17/19 15:53> Treatment Plan Problems - Problems identified on initial assessmt Altered Thought Process Date Initiated: 03/17/19 Time Initiated: 10:00 Assessment reference: NA Status: Active Priority: 1 Ineffective Coping Date Initiated: 03/17/19 Time Initiated: 10:00 Assessment reference: NA Status: Active Priority: 2 Treatment assets and liabiliti Patient Assests: adapts well, cooperative, negotiates basic needs Patient Liabilities: financial problems, imparied memory - Milieu Protocol Maintain good personal hygiene: daily Encourage regular showers, daily Remind patient to perform daily oral care, every shift Assist patient to perform ADL's Conduct patient checks and document Observation sheet: Q15 minutes Maintain personal safety: every shift Educate patient to report safety concerns to staff, every shift Monitor environment for contraband/sharps Medication safety: Monitor for expected outcome, potential side effects: every shift, Assess barriers to learning: every shift, Assess readiness for medication education: every shift Family Contact Family involvement: Family/SO is involved Family contact: Patient agrees to contact - Goals for Treatment Patient goals for treatment: "Rule the world." Discharge/Continuing Care - Education Needs Education Needs: Patient Medication, Patient Diagnosis/Disease Process, Patient Coping Skills, Patient Anger Management skills, Patient Placement options, Patient Community resources, Patient Activities of Daily Living, Patient Pain, Patient Nutrition, Patient Uses of Medical Equipment, Patient Health Practices/Safety, Patient Personal Hygiene/Grooming, Patient Aftercare Safety Plan - Discharge Discharge Criteria: Tolerates medication w/o severe side effects <Thaddeus Dhaliwal - Last Filed: 03/21/19 11:58> - Diagnosis (1) Schizophrenia Status: Acute Interventions: 03/18/19 15:43 * Milieu/structure/supportive therapy * consultation for discharge plan and social issues MEDICATION ADJUSTMENT * Effexor XR 150 mg po TID will be decreased to 150 mg po daily * Elavil will be decreased to 75 mg po HS * c/w Abilify at 10 mg po daily, titrate as needed for disorganization * c/w klonopin 0.5 mg po bid for anxiety * c/w vistaril 50 mg po TID prn: anxiety * Trintellix 5 mg po daily is nonformulary <Mary Snider - Last Filed: 03/24/19 08:13> Family Contact Family involvement: Family/SO is involved Family contact: Patient agrees to contact Family contact name: Autumn Bonilla(H:[phone] C: [phone]) roommate Family contacted how many times per week?: 2 <Karen Meyer - Last Filed: 03/24/19 08:40>
[2019-03-17] MEDS ORDERED: Magnesium Hydroxide Susp 30 ml UD PO PRN (19:02)
[2019-03-17] MEDS ORDERED: Alum-Mag Hydrox-Simethicone Susp (30 mL) PO PRN (19:02)
[2019-03-17] MEDS ORDERED: DiphenhydrAMINE 50 mg/ml Inj IM PRN (19:03)
[2019-03-18] MEDS: Pantoprazole 40 mg EC Tab PO SCH (06:25)
--- NOTE | 2019-03-18 15:36 | PN ---
DATE: 03/18/2019 SUBJECTIVE: The patient is 48 years old, sitting in chair, seems to be comfortable. Denies any chest pain. No shortness of breath. PHYSICAL EXAMINATION VITAL SIGNS: She is afebrile. Pulse 114, respirations 20, blood pressure 121/81. LUNGS: Bilateral fair airflow. No rhonchi or crackles. HEART: S1 and S2 audible. ABDOMEN: Soft and nontender. No rebound. No guarding. NEUROLOGIC: She is awake and alert; able to communicate. ASSESSMENT 1. History of bipolar disorder. 2. History of hyperlipidemia. 3. Status post hypokalemia. 4. History of degenerative disc disease. PLAN: I will order for electrolyte for morning. We will continue current medication and we will follow up in a.m. Simi Owens MD
--- NOTE | 2019-03-18 15:42 | PCM.PSYCH ---
Initial Psychiatric Evaluation - Initial Psychiatric Evaluation Type of Admission: Voluntary Legal Status: Capacity History of Present Illness and Precipitating Events: Karen Wallace is a 48 year old female with a psychiatric history of schizoaffective disorder, no reported prior psychiatric admissions or SA, UDS negative, linked with PARUL Martinez at [facility], who was BIB EMS on 03/17/19 after she was found wandering around a neighbor's apartment. Patient is recently known to this provider due to her multiple presentations to the ER and medical floor in the past 1-2 weeks: On 03/10/19 patient was BIB EMS for psychiatric evaluation after patient reported that she left her home at 2am because she no longer wanted to stay with her roommate. She reported that she was waiting outside a local [facility] for her to pick her up, but her never showed up and an ambulance was called. Dr. Baptiste consulted with patient in the ER and found patient to be disorganized and illogical. Dr. Baptiste was not able to confirm that patient's actually existed and patient was waiting outside the [facility] for many hours. Patient was admitted medically from 03/10/19-03/13/19 and treated for hypokalemia and delirium. Dr. Baptiste comfirmed patient's medications with [facility]: Effexor XR 150 mg po TID, Elavil 150 mg po HS, klonopin 0.5 mg bid, Keppra 750 mg po bid, Trintellix 5 mg po daily, Abilify 10 mg po daily, Vistaril 50 mg po TID. Patient filled the medication on 03/08/19 and prescriber is MASON Martinez. Patient reports adherence with her medications however this could not be confirmed. Patient was evaluated by [facility] screeners during her medical treatment and they determined patient did not meet criteria for involuntary commitment. Her mental status did improve and she presented much more clear and oriented by discharge, consistent with resolving delirium. Patient was discharged on 03/13/19. The sequence of events occurring after patient was discharged on 03/13/19 continue to be unclear. Patient is vague and minimizes her behaviors. On 03/16/19 patient was BIB police because she has been sitting outside the hospital for a many hours talking to herself which she stated "is what I always do". Patient was found to be alert and oriented in all spheres and able to provide pertinent information. She was calm and cooperative and is easily engaged in conversation. Patient denied any SI/HI or AVH and was discharged from the ER. On 03/17/19 patient was BIB EMS after she was found wandering in a stranger's apartment. Patient at the time seemed confused and believed she was definitely in her own apartment. She stated they were "playing games". During PES interview patient was illogical, careless and inadvertently exposing herself. She also mentioned that her was very angry that patient was brought to the hospital again. I met with patient at bedside in the ER and expressed my concern about her well-being and patient agreed to sign in voluntarily for observation and treatment. Patient was admitted to our unit on 03/17/19. Patient was noted to be disorgan ized and illogical when she admitted to our unit however she was not agitated or threatening. Compliant with medications. Patient was guarded and vague during my visit with her though she was superf icially friendly. Reports that circumstances leading to her ER presentation were a misunderstanding but she cannot meaningfully explain how this was possible. This provider expressed concern for her well-being and patient agreed to continue medication adjustment and observation. She continues to deny any AVH, SI or HI. She is oriented x3 and reports the name of her "who is actually my fiancee" is Dayan Gutierrez. PSYCHIATRIC HISTORY SEE HPI-No psychiatric admissions, no SA. In treatment at [facility] and prescribed Elavil 150 mg po HS, Effexor XR 150 mg po TID, klonopin 0.5 mg bid, Keppra 750 mg po bid, Trintellix 5 mg po daily, Abilify 10 mg po daily, Vistaril 50 mg po TID. Patient filled the medication on 03/08/19 and prescriber is MASON Martinez. Patient was consulted on by Dr. Baptiste in March 2017 on the medical floor after being admitted for possible seizure disorder. Diagnosis noted as Schizophrenia, Neurocognitive limitations. Medications at the time included Wellbutrin 200 bid (d/c'ed), Effexor 150 TID, Seroquel 200 HS, Klonopin 1 TID, Elavil [address] Baptiste felt patient was on too many medications, possible contributing to lowered seizure threshold. Patient also was unable to get klonopin delivered for a few days at the time and was withdrawing. Patient deferred on voluntary admission to unit for medication adjustment. Dr. Baptiste signed off. SOCIAL HISTORY Patient reports she is engaged to her fiancee "Dayan Gutierrez". Denies drug or alcohol use. The patient failed the outpatient lower level of care: Yes Current Medications: Active Medications Generic Name Dose Route Start Last Admin Trade Name Freq PRN Reason Stop Dose Admin Acetaminophen 650 mg 03/17/19 19:02 Tylenol 325mg Tab PO Q6H PRN Pain, moderate (4-7) Al Hydrox/Mg Hydrox/Simethicone 30 ml 03/17/19 19:02 Maalox Plus 30 Ml PO DAILY PRN Indigestion / Heartburn Amitriptyline HCl 75 mg 03/17/19 22:00 03/17/19 21:42 Elavil PO 75 mg HS RADHA Administration Aripiprazole 10 mg 03/17/19 12:30 03/17/19 13:16 Abilify PO 10 mg DAILY RADHA Administration Protocol Chlorpromazine 25 mg 03/17/19 18:57 Thorazine IM Q6H PRN Severe Agitation Protocol Chlorpromazine 25 mg 03/17/19 18:58 Thorazine PO Q6H PRN Agitation Protocol Clonazepam 0.5 mg 03/17/19 16:00 03/17/19 17:19 Klonopin PO Not Given BID RADHA Protocol Diphenhydramine HCl 25 mg 03/17/19 19:03 Benadryl IM Q6H PRN Side Effects Diphenhydramine HCl 25 mg 03/17/19 19:04 Benadryl PO Q6H PRN Agitation Lorazepam 1 mg 03/17/19 19:05 Ativan IM Q6H PRN Severe Anxiety/SevereAgitation Protocol Lorazepam 1 mg 03/17/19 19:07 Ativan PO Q6H PRN Anxiety Protocol Magnesium Hydroxide 30 ml 03/17/19 19:02 Milk Of Magnesia PO DAILY PRN Constipation Pantoprazole Sodium 40 mg 03/18/19 06:30 Pro[place]ix [place] PO 0630 RADHA Present on Admission - Present on Admission Any Indicators Present on Admission: No - Notes: Notes:: Please refer to ER report dated 03/17/19 for ROS and physical exam findings. Review of Systems - Review of Systems Review of Systems: Please refer to ER report dated 03/17/19 for ROS and physical exam findings. - EENT Eyes: As Per HPI Ears: As Per HPI Nose/Mouth/Throat: As Per HPI - Breasts Breasts: As Per HPI - Cardiovascular Cardiovascular: As Per HPI - Respiratory Respiratory: As Per HPI - Gastrointestinal Gastrointestinal: As Per HPI - Genitourinary Genitourinary: As Per HPI - Reproductive: Female Reproductive:Female: As Per HPI - Menstruation Menstruation: As Per HPI - Musculoskeletal Musculoskeletal: As Per HPI - Integumentary Integumentary: As Per HPI - Neurological Neurological: As Per HPI - Psychiatric Psychiatric: As Per HPI - Endocrine Endocrine: As Per HPI - Hematologic/Lymphatic Hematologic: As Per HPI Past Patient History - Past Psychiatric History Prior Professional Help: SEE HPI - PSYCHIATRIC Hx Schizophrenia: Yes Hx Substance Use: No - Infectious Disease Hx of Infectious Diseases: None - Tetanus Immunizations Tetanus Immunization: Unknown - CARDIAC Hx Cardiac Disorders: Yes (SVT) - PULMONARY Hx Respiratory Disorders: Yes (SMOKES CIGARETTES) Hx Asthma: Yes Hx Bronchitis: Yes Hx Chronic Obstructive Pulmonary Disease (COPD): Yes Hx Sleep Apnea: Yes - NEUROLOGICAL Hx Neurological Disorder: Yes HX Cerebrovascular Accident: Yes (SOME SLURRY SPEECH) - HEENT Hx HEENT Problems: No - RENAL Hx Chronic Kidney Disease: No - ENDOCRINE/METABOLIC Hx Endocrine Disorders: No - HEMATOLOGICAL/ONCOLOGICAL Hx Blood Disorders: Yes Hx Anemia: Yes - INTEGUMENTARY Hx Dermatological Problems: No - MUSCULOSKELETAL/RHEUMATOLOGICAL Hx Musculoskeletal Disorders: Yes Hx Back Pain: Yes Hx Falls: Yes Hx Unsteady Gait: Yes (ROLLATOR) - GASTROINTESTINAL Hx Gastrointestinal Disorders: Yes (BARIATRIC SX) - GENITOURINARY/GYNECOLOGICAL Hx Genitourinary Disorders: Yes Hx Urinary Tract Infection: Yes - SURGICAL HISTORY Hx Cardiac Catheterization: No Hx Coronary Stent: No - ANESTHESIA Hx Anesthesia: No Hx Anesthesia Reactions: No Hx Malignant Hyperthermia: No - Medical/Surgical History Reviewed & confirmed: by nh Meds Allergies/Adverse Reactions: Allergies Allergy/AdvReac Type Severity Reaction Status Date / Time Penicillins Allergy ANAPHYLAXIS Verified 03/16/19 13:28 bee sting Allergy SWELLING Uncoded 03/17/19 12:48 Mental Status Examination - Personal Presentation Personal Presentation: Looks stated age - Affect Affect: Constricted - Motor Activity Motor Activity: Calm - Reliability in Providing Information Reliability in Providing Information: Poor, due to alteration in thoughts, Poor, due to cognitve impairment - Speech Speech: Organized, Tangential - Mood Mood: Neutral - Formal Thought Process Formal Thought Process: Delusions, Paranoia - Cognitive Functions Orientation: Person, Place Sensorium: Alert Attention/Concentration: Easily distracted Estimate of Intelligence: Below average Judgement: Imparied, as evidence by: Poor judgement, Imparied, as evidence by: L ack of insight into illness, Imparied, as evidence by: Other Memory: Recent impaired, as evidence by: Inability to recall events of the day - Risk Risk: Diminished functioning Psychiatric Physical Exam - Physical Exam Reviewed and confirmed: Emergency Department Physical Exam (Please refer to ER report dated 03/17/19 for ROS and physical exam findings.) Results - Vital Signs Recent Vital Signs: Last Vital Signs Temp 98.4 F 03/17/19 09:25 Pulse 111 H 03/17/19 16:00 Resp 20 03/17/19 09:25 BP 152/89 H 03/17/19 16:00 Pulse Ox 100 03/17/19 09:25 - Labs Labs: Laboratory Results - last 24 hr 03/17/19 08:55 Urine Opiates Screen Negative Urine Methadone Screen Negative Ur Barbiturates Screen Negative Ur Phencyclidine Scrn Negative Ur Amphetamines Screen Negative U Benzodiazepines Scrn Negative U Oth Cocaine Metabols Negative U Cannabinoids Screen Negative - Impressions Impression: Please refer to ER report dated 03/17/19 for ROS and physical exam findings. DSM Plan - DSM 5 DSM 5 Diagnosis: Schizophrenia Neurocognitive limitation - Recommended/Plan of Treatment Treatment Recommendations and Plan of Treatment: * Milieu/structure/supportive therapy * consultation for discharge plan and social issues MEDICATION ADJUSTMENT * Effexor XR 150 mg po TID will be decreased to 150 mg po daily * Elavil will be decreased to 75 mg po HS * c/w Abilify at 10 mg po daily, titrate as needed for disorganization * c/w klonopin 0.5 mg po bid for anxiety * c/w vistaril 50 mg po TID prn: anxiety * Trintellix 5 mg po daily is nonformulary * Awaiting medical consultation * Vitals reviewed and noted below: 03/17/19 03/17/19 03/18/19 09:25 16:00 07:20 Temperature 98.4 F 98.3 F Pulse Rate 118 H 111 H 114 H Respiratory 20 20 Rate Blood Pressure 130/83 152/89 H 121/81 ADMISSION LABS AND STUDIES Please refer to ER report dated 03/17/19 for ROS and physical exam findings. Laboratory Tests 03/17/19 08:55 Urine Opiates Screen Negative Urine Methadone Screen Negative Ur Barbiturates Screen Negative Ur Phencyclidine Scrn Negative Ur Amphetamines Screen Negative U Benzodiazepines Scrn Negative U Oth Cocaine Metabols Negative U Cannabinoids Screen Negative : Projected ELOS: 7 days Prognosis: guarded Discharge Plan and Discharge Criteria: MARIA LUISA Parekh ENROLLMENT COUNSELOR - Tobacco Cessation Tobacco Use Status for the last 30 days: Non User Tobacco Use Treatment Practical Counseling Provided: No Tobacco Use Treatment FDA-Approved Cessation Medication Provided: No - Alcohol or Substance Abuse Does the patient have an Alcohol or Substance Abuse Disorder: No Initial Psych Certification - Initial Certification I certify that the inpatient psychiatric facility admission was medically necessary for either: Treatment which could reasonbly be expected to improve pt's condition, Diagnostic study I estimate of hospitalization is necessary for proper treatment of the patient: 7 Unit of Time: Days
[2019-03-19] MEDS: Pantoprazole 40 mg EC Tab PO SCH (06:51)
[2019-03-19 08:29] LABS: ALB/GLOB RATIO 1.2 (1.1-1.8); ALBUMIN 3.6 g/dL (3.0-4.8); ALT/SGPT 27 U/L (7-56); AST/SGOT 25 U/L (14-36); BLOOD UREA NITROGEN 12 mg/dL (7-21); CALCIUM 8.7 mg/dL (8.4-10.5); GFR NON-AFRICAN AMERICAN > 60
[2019-03-19] MEDS: Venlafaxine 75 mg ER Cap PO SCH (08:51)
--- NOTE | 2019-03-19 09:27 | PCM.PYCHPN ---
Psychiatric Progress Note - Psychiatric Progress Note Patient seen today, length of contact: 35 min Problems Identified/Issues Discussed: History of Present Illness and Precipitating Events: Karen Wallace is a 48 year old female with a psychiatric history of schizoaffective disorder, no reported prior psychiatric admissions or SA, UDS negative, linked with PARUL Martinez at [facility], who was BIB EMS on 03/17/19 after she was found wandering around a neighbor's apartment. Patient is recently known to this provider due to her multiple presentations to the ER and medical floor in the past 1-2 weeks: On 03/10/19 patient was BIB EMS for psychiatric evaluation after patient reported that she left her home at 2am because she no longer wanted to stay with her roommate. She reported that she was waiting outside a local [facility] for her to pick her up, but her never showed up and an ambulance was called. Dr. Baptiste consulted with patient in the ER and found patient to be disorganized and illogical. Dr. Baptiste was not able to confirm that patient's actually existed and patient was waiting outside the -[facility] for many hours. Patient was admitted medically from 03/10/19-03/13/19 and treated for hypokalemia and delirium. Dr. Baptiste comfirmed patient's medications with [facility]: Effexor XR 150 mg po TID, Elavil 150 mg po HS, klonopin 0.5 mg bid, Keppra 750 mg po bid, Trintellix 5 mg po daily, Abilify 10 mg po daily, Vistaril 50 mg po TID. Patient filled the medication on 03/08/19 and prescriber is MASON Martinez. Patient reports adherence with her medications however this could not be confirmed. Patient was evaluated by [facility] screeners during her medical treatment and they determined patient did not meet criteria for involuntary commitment. Her mental status did improve and she presented much more clear and oriented by discharge, consistent with resolving delirium. Patient was discharged on 03/13/19. The sequence of events occurring after patient was discharged on 03/13/19 continue to be unclear. Patient is vague and minimizes her behaviors. On 03/16/19 patient was BIB police because she has been sitting outside the hospital for a many hours talking to herself which she stated "is what I always do". Patient was found to be alert and oriented in all spheres and able to provide pertinent information. She was calm and cooperative and is easily engaged in conversation. Patient denied any SI/HI or AVH and was discharged from the ER. On 03/17/19 patient was BIB EMS after she was found wandering in a stranger's apartment. Patient at the time seemed confused and believed she was definitely in her own apartment. She stated they were "playing games". During PES interview patient was illogical, careless and inadvertently exposing herself. She also mentioned that her was very angry that patient was brought to the hospital again. I met with patient at bedside in the ER and expressed my concern about her well-being and patient agreed to sign in voluntarily for observation and treatment. Patient was admitted to our unit on 03/17/19. Patient was noted to be disorganized and illogical when she admitted to our unit however she was not agitated or threatening. Compliant with medications. Patient was guarded and vague during my visit with her though she was superficially friendly. Reports that circumstances leading to her ER presentation were a misunderstanding but she cannot meaningfully explain how this was possible. This provider expressed concern for her well-being and patient agreed to continue medication adjustment and observation. She continues to deny any AVH, SI or HI. She is oriented x3 and reports the name of her "who is actually my fiancee" is Dayan Gutierrez. PSYCHIATRIC HISTORY SEE HPI-No psychiatric admissions, no SA. In treatment at [facility] and prescribed Elavil 150 mg po HS, Effexor XR 150 mg po TID, klonopin 0.5 mg bid, Keppra 750 mg po bid, Trintellix 5 mg po daily, Abilify 10 mg po daily, Vistaril 50 mg po TID. Patient filled the medication on 03/08/19 and prescriber is MASON Martinez. Patient was consulted on by Dr. Baptiste in March 2017 on the medical floor after being admitted for possible seizure disorder. Diagnosis noted as Schizophrenia, Neurocognitive limitations. Medications at the time included Wellbutrin 200 bid (d/c'ed), Effexor 150 TID, Seroquel 200 HS, Klonopin 1 TID, Elavil [address] Baptiste felt patient was on too many medications, possible contributing to lowered seizure threshold. Patient also was unable to get klonopin delivered for a few days at the time and was withdrawing. Patient deferred on voluntary admission to unit for medication adjustment. Dr. Baptiste signed off. SOCIAL HISTORY Patient reports she is engaged to her fiancee "Dayan Gutierrez". Denies drug or alcohol use. PROGRESS NOTE 03/19/19 I reviewed recent notes which indicate that patient has mainly kept to herself and seems oddly related to staff members. She has some idiosyncracies about taking her medications with apple sauce. Nonetheless she has been compliant with medications and denies any issues with recent adjustments. Changes were reviewed at bedside again this morning. Patient is friendly during my visit and doesn't really want to discuss circumstances of her admission. She can express her needs well, indicating she needs medicine to evaluate a popped blister on her thighs. This is causing her some pain. Other than that she doesn't express other concerns. Reports that she slept well last night and her appetite is good. Denies depression or any mental distress. She continues to deny any AVH, SI or HI. Remains oriented x3. Diagnostic Results: Schizophrenia Neurocognitive limitation Medication Change: Yes Medical Record Reviewed: Yes Mental Status Examination - Cognitive Function Orientation: Person, Place Attention: WNL Concentration: WNL Fund of Knowledge: Poor - Mood Mood: Neutral - Affect Affect: Constricted - Formal Thought Process Formal Thought Process: Delusions, Paranoia - Suicidal Ideation Suicidal Ideation: No - Homicidal Ideation Homicidal Ideation: No Goal/Treatment Plan - Goal/Treatment Plan Progress Toward Problem(s) and Goals/Treatment Plan: * Milieu/structure/supportive therapy * consultation for discharge plan and social issues MEDICATION ADJUSTMENT * Effexor XR 150 mg po will be continued once daily * Elavil will be continued 75 mg po HS * c/w Abilify at 10 mg po daily, titrate as needed for disorganization * c/w klonopin 0.5 mg po bid for anxiety * c/w vistaril 50 mg po TID prn: anxiety * Trintellix 5 mg po daily is nonformulary * Patient is tolerating medication decreases fairly well, this provider is qu estioning her compliance level prior to her recent admissions. Will continue to monitor. * Awaiting medical consultation to determine necessity of Keppra which patient was prescribed during her previous admission. Patient refused medication on the unit. * Vitals reviewed and noted below: Selected Entries 03/18/19 03/18/19 07:20 16:28 Temperature 98.3 F Pulse Rate 114 H 103 H Respiratory 20 Rate Blood Pressure 121/81 113/77 ADMISSION LABS AND STUDIES Please refer to ER report dated 03/17/19 for ROS and physical exam findings. Laboratory Tests 03/17/19 08:55 Urine Opiates Screen Negative Urine Methadone Screen Negative Ur Barbiturates Screen Negative Ur Phencyclidine Scrn Negative Ur Amphetamines Screen Negative U Benzodiazepines Scrn Negative U Oth Cocaine Metabols Negative U Cannabinoids Screen Negative :
--- NOTE | 2019-03-19 16:18 | PN ---
DATE: 03/19/2019 SUBJECTIVE: The patient is 48-years old, seen and examined. Resting comfortably. Does not talk much. PHYSICAL EXAMINATION: VITAL SIGNS: She is afebrile, pulse 99, respirations 20, blood pressure 107/67. LUNGS: Bilateral fair airflow. No rhonchi or crackle. HEART: S1, S2 audible. ABDOMEN: Soft, nontender. No rebound. No guarding. NEUROLOGIC: The patient awake and alert. Able to communicate. ASSESSMENT: 1. Bipolar disorder. 2. History of anxiety. 3. Hyperlipidemia. PLAN: Continue current medication. Psych medication is being adjusted by Psychiatry. Simi Owens MD
[2019-03-19] MEDS: Nystatin-Triamcinolone Cream(30 gm) TOP SCH (18:43)
[2019-03-20] MEDS: Pantoprazole 40 mg EC Tab PO SCH (07:09)
[2019-03-20] MEDS: Nystatin-Triamcinolone Cream(30 gm) TOP SCH ×2 (07:43→17:05)
[2019-03-20] MEDS: Venlafaxine 75 mg ER Cap PO SCH (08:13)
--- NOTE | 2019-03-20 09:08 | PCM.PYCHPN ---
Psychiatric Progress Note - Psychiatric Progress Note Patient seen today, length of contact: 35 min Problems Identified/Issues Discussed: History of Present Illness and Precipitating Events: Karen Wallace is a 48 year old female with a psychiatric history of schizoaffective disorder, no reported prior psychiatric admissions or SA, UDS negative, [place] PARUL [place] [facility] who was BIB EMS on 03/17/19 after she was found wandering around a neighbor's apartment. Patient is recently known to this provider due to her multiple presentations to the ER and medical floor in the past 1-2 weeks: On 03/10/19 patient was BIB EMS for psychiatric evaluation after patient reported that she left her home at 2am because she no longer wanted to stay with her roommate. She reported that she was waiting outside a local [facility] for her to pick her up, but her never showed up and an ambulance was called. Dr. Baptiste consulted with patient in the ER and found patient to be disorganized and illogical. Dr. Baptiste was not able to confirm that patient's actually existed and patient was waiting outside the [facility] for many hours. Patient was admitted medically from 03/10/19-03/13/19 and treated for hypokalemia and delirium. Dr. Baptiste comfirmed patient's medications with [facility]: Effexor XR 150 mg po TID, Elavil 150 mg po HS, klonopin 0.5 mg bid, Keppra 750 mg po bid, Trintellix 5 mg po daily, Abilify 10 mg po daily, Vistaril 50 mg po TID. Patient filled the medication on 03/08/19 and prescriber is MASON Martinez. Patient reports adherence with her medications however this could not be confirmed. Patient was evaluated [place] [facility] [place] during her medical treatment and they determined patient did not meet criteria for involuntary commitment. Her mental status did improve and she presented much more clear and oriented by discharge, consistent with resolving delirium. Patient was discharged on 03/13/19. The sequence of events occurring after patient was discharged on 03/13/19 continue to be unclear. Patient is vague and minimizes her behaviors. On 03/16/19 patient was BIB police because she has been sitting outside the hospital for a many hours talking to herself which she stated "is what I always do". Patient was found to be alert and oriented in all spheres and able to provide pertinent information. She was calm and cooperative and is easily engaged in conversation. Patient denied any SI/HI or AVH and was discharged from the ER. On 03/17/19 patient was BIB EMS after she was found wandering in a stranger's apartment. Patient at the time seemed confused and believed she was definitely in her own apartment. She stated they were "playing games". During PES interview patient was illogical, careless and inadvertently exposing herself. She also mentioned that her was very angry that patient was brought to the hospital again. I met with patient at bedside in the ER and expressed my concern about her well-being and patient agreed to sign in voluntarily for observation and treatment. Patient was admitted to our unit on 03/17/19. Patient was noted to be disorganized and illogical when she admitted to our unit however she was not agitated or threatening. Compliant with medications. Patient was guarded and vague during my visit with her though she was superficially friendly. Reports that circumstances leading to her ER presentation were a misunderstanding but she cannot meaningfully explain how this was possible. This provider expressed concern for her well-being and patient agreed to continue medication adjustment and observation. She continues to deny any AVH, SI or HI. She is oriented x3 and reports the name of her "who is actually my fiancee" is Dayan Gutierrez. PSYCHIATRIC HISTORY SEE HPI-No psychiatric admissions, no SA. In [place] [facility] and prescribed Elavil 150 mg po HS, Effexor XR 150 mg po TID, klonopin 0.5 mg bid, Keppra 750 mg po bid, Trintellix 5 mg po daily, Abilify 10 mg po daily, Vistaril 50 mg po TID. Patient filled the medication on 03/08/19 and prescriber is MASON Martinez. Patient was consulted on by Dr. Baptiste in March 2017 on the medical floor after being admitted for possible seizure disorder. Diagnosis noted as Schizophrenia, Neurocognitive limitations. Medications at the time included Wellbutrin 200 bid (d/c'ed), Effexor 150 TID, Seroquel 200 HS, Klonopin 1 TID, Elavil [address] Baptiste felt patient was on too many medications, possible contributing to lowered seizure threshold. Patient also was unable to get klonopin delivered for a few days at the time and was withdrawing. Patient deferred on voluntary admission to unit for medication adjustment. Dr. Baptiste signed off. SOCIAL HISTORY Patient reports she is engaged to her fiancee "Dayan Gutierrez". Denies drug or alcohol use. PROGRESS NOTE 03/20/19 I reviewed recent notes which indicate that patient has mainly kept to herself on the unit. She is fairly cooperative and friendly with staff members. There have been no reports of bizarre behaviors or patient responding to internal stimuli. She continues to deny depression, AVH, paranoia or SI/HI. Delusions were not elicited however collateral has not be obtained regarding patient's fiancee. Patient does report that her former roommate's name is "Elise Nick" and that Elise is in treatment with Dr. Robles at [facility] while patient is in treatment with MASON Martinez. Patient has been compliant with medications and denies any issues with recent adjustments. Changes were reviewed at bedside again this morning. Patient is friendly during my visit and doesn't really want to discuss circumstances of her admission. She can express her needs well, indicating she needs medicine f/u again today due to continued pain of her thigh blister. She wasn't able to sleep well last night due to the pain. Other than that she doesn't express other concerns. Reports that her appetite is good. Denies any mental distress and would like to be discharged in the AM. She continues to deny any AVH, SI or HI. Remains oriented x3. Diagnostic Results: Schizophrenia Neurocognitive limitation Medication Change: Yes Medical Record Reviewed: Yes Mental Status Examination - Cognitive Function Orientation: Person, Place Attention: WNL Concentration: WNL Fund of Knowledge: Poor - Mood Mood: Neutral - Affect Affect: Constricted - Formal Thought Process Formal Thought Process: Delusions, Paranoia - Suicidal Ideation Suicidal Ideation: No - Homicidal Ideation Homicidal Ideation: No Goal/Treatment Plan - Goal/Treatment Plan Progress Toward Problem(s) and Goals/Treatment Plan: * Milieu/structure/supportive therapy * SW consultation for discharge plan and social issues. To f/u and confirm patient has a place to live upon discharge and patient has a f/u appointment with MASON Martinez. MEDICATION ADJUSTMENT * Effexor XR 150 mg po will be continued once daily * Elavil will be continued 75 mg po HS * c/w Abilify at 10 mg po daily, titrate as needed for disorganization * c/w klonopin 0.5 mg po bid for anxiety * c/w vistaril 50 mg po TID prn: anxiety * Trintellix 5 mg po daily is nonformulary * Patient is tolerating medication decreases very well, this provider is questioning her compliance level prior to her recent admissions. Will continue to monitor. * Appreciate f/u by Dr. Owens on 03/17, 03/18 & 03/19/19 . * Vitals reviewed and noted below: Selected Entries 03/19/19 03/19/19 07:23 16:00 Temperature 98.3 F Pulse Rate 99 H 97 H Respiratory 20 Rate Blood Pressure 107/67 135/79 ADMISSION LABS AND STUDIES Please refer to ER report dated 03/17/19 for ROS and physical exam findings. Laboratory Results - last 24 hr 03/19/19 07:00 Sodium 140 Potassium 3.8 Chloride 103 Carbon Dioxide 29 Anion Gap 11 BUN 12 Creatinine 0.7 Est GFR ( Amer) > 60 Est GFR (Non-Af Amer) > 60 Random Glucose 96 Calcium 8.7 Magnesium 2.3 H Total Bilirubin 0.2 AST 25 ALT 27 Alkaline Phosphatase 89 Total Protein 6.8 Albumin 3.6 Globulin 3.1 Albumin/Globulin Ratio 1.2 Laboratory Tests 03/17/19 08:55 Urine Opiates Screen Negative Urine Methadone Screen Negative Ur Barbiturates Screen Negative Ur Phencyclidine Scrn Negative Ur Amphetamines Screen Negative U Benzodiazepines Scrn Negative U Oth Cocaine Metabols Negative U Cannabinoids Screen Negative :
[2019-03-21] MEDS: Pantoprazole 40 mg EC Tab PO SCH (06:20)
[2019-03-21] MEDS: Venlafaxine 75 mg ER Cap PO SCH (09:14)
[2019-03-21] MEDS: Nystatin-Triamcinolone Cream(30 gm) TOP SCH ×2 (09:15→17:16)
--- NOTE | 2019-03-21 16:25 | PN ---
DATE: 03/21/2019 SUBJECTIVE: The patient is 45-year-old, seen and examined. States she is feeling a lot better. She was foggy when she came in and she is much clear, she can think better. Complaint of rash in the thigh area. She was started on nystatin, she is feeling better. PHYSICAL EXAMINATION: VITAL SIGNS: She is afebrile. Pulse 75, respiration 18 and blood pressure 127/84. LUNGS: Bilateral fair airflow. No rhonchi or crackle. HEART: S1 and S2, audible. ABDOMEN: Soft and nontender. No rebound. No guarding. NEUROLOGIC: The patient is awake, alert and able to communicate. EXTREMITIES: Bilateral leg no edema. LABORATORY DATA: Sodium 140, potassium 3.8, chloride 103, CO2 of 29, BUN 12, creatinine 0.7 and blood sugar 97. Urine tox is negative. ASSESSMENT: 1. History of bipolar disorder. 2. History of schizophrenia. 3. Hyperlipidemia. 4. Fungal skin infection. PLAN: We will continue the patient on current medication. Possible plan for discharge either today or tomorrow with her family. Simi Owens MD
--- NOTE | 2019-03-21 20:38 | PCM.PYCHPN ---
Psychiatric Progress Note - Psychiatric Progress Note Patient seen today, length of contact: 35 min Problems Identified/Issues Discussed: History of Present Illness and Precipitating Events: Karen Wallace is a 48 year old female with a psychiatric history of schizoaffective disorder, no reported prior psychiatric admissions or SA, UDS negative, linked with PARUL Martinez at [facility], who was BIB EMS on 03/17/19 after she was found wandering around a neighbor's apartment. Patient is recently known to this provider due to her multiple presentations to the ER and medical floor in the past 1-2 weeks: On 03/10/19 patient was BIB EMS for psychiatric evaluation after patient reported that she left her home at 2am because she no longer wanted to stay with her roommate. She reported that she was waiting outside a local [facility] for her to pick her up, but her never showed up and an ambulance was called. Dr. Baptiste consulted with patient in the ER and found patient to be disorganized and illogical. Dr. Baptiste was not able to confirm that patient's actually existed and patient was waiting outside the [facility] for many hours. Patient was admitted medically from 03/10/19-03/13/19 and treated for hypokalemia and delirium. Dr. Baptiste comfirmed patient's medications with [facility]: Effexor XR 150 mg po TID, Elavil 150 mg po HS, klonopin 0.5 mg bid, Keppra 750 mg po bid, Trintellix 5 mg po daily, Abilify 10 mg po daily, Vistaril 50 mg po TID. Patient filled the medication on 03/08/19 and prescriber is MASON Martinez. Patient reports adherence with her medications however this could not be confirmed. Patient was evaluated by [facility] [place] screeners during her medical treatment and they determined patient did not meet criteria for involuntary commitment. Her mental status did improve and she presented much more clear and oriented by discharge, consistent with resolving delirium. Patient was discharged on 03/13/19. The sequence of events occurring after patient was discharged on 03/13/19 continue to be unclear. Patient is vague and minimizes her behaviors. On 03/16/19 patient was BIB police because she has been sitting outside the hospital for a many hours talking to herself which she stated "is what I always do". Patient was found to be alert and oriented in all spheres and able to provide pertinent information. She was calm and cooperative and is easily engaged in conversation. Patient denied any SI/HI or AVH and was discharged from the ER. On 03/17/19 patient was BIB EMS after she was found wandering in a stranger's apartment. Patient at the time seemed confused and believed she was definitely in her own apartment. She stated they were "playing games". During PES interview patient was illogical, careless and inadvertently exposing herself. She also mentioned that her was very angry that patient was brought to the hospital again. I met with patient at bedside in the ER and expressed my concern about her well-being and patient agreed to sign in voluntarily for observation and treatment. Patient was admitted to our unit on 03/17/19. Patient was noted to be disorganized and illogical when she admitted to our unit however she was not agitated or threatening. Compliant with medications. Patient was guarded and vague during my visit with her though she was superficially friendly. Reports that circumstances leading to her ER presentation were a misunderstanding but she cannot meaningfully explain how this was possible. This provider expressed concern for her well-being and patient agreed to continue medication adjustment and observation. She continues to deny any AVH, SI or HI. She is oriented x3 and reports the name of her "who is actually my fiancee" is Dayan Gutierrez. PSYCHIATRIC HISTORY SEE HPI-No psychiatric admissions, no SA. In treatment at [facility] and prescribed Elavil 150 mg po HS, Effexor XR 150 mg po TID, klonopin 0.5 mg bid, Keppra 750 mg po bid, Trintellix 5 mg po daily, Abilify 10 mg po daily, Vistaril 50 mg po TID. Patient filled the medication on 03/08/19 and prescriber is MASON Martinez. Patient was consulted on by Dr. Baptiste in March 2017 on the medical floor after being admitted for possible seizure disorder. Diagnosis noted as Schizophrenia, Neurocognitive limitations. Medications at the time included Wellbutrin 200 bid (d/c'ed), Effexor 150 TID, Seroquel 200 HS, Klonopin 1 TID, Elavil [address] Baptiste felt patient was on too many medications, possible contributing to lowered seizure threshold. Patient also was unable to get klonopin delivered for a few days at the time and was withdrawing. Patient deferred on voluntary admission to unit for medication adjustment. Dr. Baptiste signed off. SOCIAL HISTORY Patient reports she is engaged to her fiancee "Dayan Gutierrez". Denies drug or alcohol use. PROGRESS NOTE 03/21/19 I reviewed recent notes which indicate that patient has mainly kept to herself on the unit. She is fairly cooperative and friendly with staff members. There have been no reports of bizarre behaviors or patient responding to internal stimuli. She is oddly related but not overtly disorganized however she mostly keeps to herself. She continues to deny depression, AVH, paranoia or SI/HI. Delusions were not elicited however collateral has not be confirmed regarding patient's fiancee actually existing. Patient's former roommate did verify that patient no longer has a residence. Patient has been compliant with medications and denies any issues with recent adjustments. Patient is friendly during my visits and reports that she would like to be discharged. She was encouraged to place a 48 hour notice if SW could not verify a place of residence as this provider did not feel comfortable discharging her considering the circumstances of her presentation. Other than that she doesn't express other concerns. Reports that her appetite is good. Denies any mental distress and remains oriented x3. Diagnostic Results: Schizophrenia Neurocognitive limitation Medication Change: Yes (increase abilify) Medical Record Reviewed: Yes Mental Status Examination - Cognitive Function Orientation: Person, Place Attention: WNL Concentration: WNL Fund of Knowledge: Poor - Mood Mood: Neutral - Affect Affect: Constricted - Formal Thought Process Formal Thought Process: Delusions, Paranoia - Suicidal Ideation Suicidal Ideation: No - Homicidal Ideation Homicidal Ideation: No Goal/Treatment Plan - Goal/Treatment Plan Progress Toward Problem(s) and Goals/Treatment Plan: * Milieu/structure/supportive therapy * Appreciate SW f/u ensuring a safe discharge plan for patient. Neither residency or proof of a fiancee could be verified today by SW and discharge was held. MEDICATION ADJUSTMENT * Effexor XR 150 mg po will be continued once daily * Elavil will be continued 75 mg po HS * Increase Abilify to 15 mg po daily, titrate as needed for disorganization * c/w klonopin 0.5 mg po bid for anxiety * c/w vistaril 50 mg po TID prn: anxiety * Trintellix 5 mg po daily is nonformulary * Patient is tolerating medication decreases very well, this provider is questioning her compliance level prior to her recent admissions. Will continue to monitor. * Appreciate f/u by Dr. Owens on 03/17, 03/18, 03/19 and 03/21/19 . * Vitals reviewed and noted below: Selected Entries 03/20/19 03/20/19 03/21/19 07:00 16:00 06:59 Temperature 97.9 F 97.8 F Pulse Rate 112 H 89 75 Respiratory 18 18 Rate Blood Pressure 144/84 117/77 127/84 ADMISSION LABS AND STUDIES Please refer to ER report dated 03/17/19 for ROS and physical exam findings. Laboratory Results - last 24 hr 03/19/19 07:00 Sodium 140 Potassium 3.8 Chloride 103 Carbon Dioxide 29 Anion Gap 11 BUN 12 Creatinine 0.7 Est GFR ( Amer) > 60 Est GFR (Non-Af Amer) > 60 Random Glucose 96 Calcium 8.7 Magnesium 2.3 H Total Bilirubin 0.2 AST 25 ALT 27 Alkaline Phosphatase 89 Total Protein 6.8 Albumin 3.6 Globulin 3.1 Albumin/Globulin Ratio 1.2 Laboratory Tests 03/17/19 08:55 Urine Opiates Screen Negative Urine Methadone Screen Negative Ur Barbiturates Screen Negative Ur Phencyclidine Scrn Negative Ur Amphetamines Screen Negative U Benzodiazepines Scrn Negative U Oth Cocaine Metabols Negative U Cannabinoids Screen Negative :
[2019-03-22] MEDS: Pantoprazole 40 mg EC Tab PO SCH (06:20)
[2019-03-22] MEDS: Venlafaxine 75 mg ER Cap PO SCH (08:58)
[2019-03-22] MEDS: Nystatin-Triamcinolone Cream(30 gm) TOP SCH (09:02)
--- NOTE | 2019-03-22 09:03 | PCM.PYCHPN ---
Psychiatric Progress Note - Psychiatric Progress Note Patient seen today, length of contact: 35 min Problems Identified/Issues Discussed: History of Present Illness and Precipitating Events: Karen Wallace is a 48 year old female with a psychiatric history of schizoaffective disorder, no reported prior psychiatric admissions or SA, UDS negative, linked with PARUL Martinez [place] [facility] who was BIB EMS on 03/17/19 after she was found wandering around a neighbor's apartment. Patient is recently known to this provider due to her multiple presentations to the ER and medical floor in the past 1-2 weeks: On 03/10/19 patient was BIB EMS for psychiatric evaluation after patient reported that she left her home at 2am because she no longer wanted to stay with her roommate. She reported that she was waiting outside a [facility] for her to pick her up, but her never showed up and an ambulance was called. Dr. Baptiste consulted with patient in the ER and found patient to be disorganized and illogical. Dr. Baptiste was not able to confirm that patient's actually existed and patient was waiting outside the [facility] for many hours. Patient was admitted medically from 03/10/19-03/13/19 and treated for hypokalemia and delirium. Dr. Baptiste comfirmed patient's medications with [facility]: Effexor XR 150 mg po TID, Elavil 150 mg po HS, klonopin 0.5 mg bid, Keppra 750 mg po bid, Trintellix 5 mg po daily, Abilify 10 mg po daily, Vistaril 50 mg po TID. Patient filled the medication on 03/08/19 and prescriber is MASON Martinez. Patient reports adherence with her medications however this could not be confirmed. Patient was evaluated by [facility] screeners during her medical treatment and they determined patient did not meet criteria for involuntary commitment. Her mental status did improve and she presented much more clear and oriented by discharge, consistent with resolving delirium. Patient was discharged on 03/13/19. The sequence of events occurring after patient was discharged on 03/13/19 continue to be unclear. Patient is vague and minimizes her behaviors. On 03/16/19 patient was BIB police because she has been sitting outside the hospital for a many hours talking to herself which she stated "is what I always do". Patient was found to be alert and oriented in all spheres and able to provide pertinent information. She was calm and cooperative and is easily engaged in conversation. Patient denied any SI/HI or AVH and was discharged from the ER. On 03/17/19 patient was BIB EMS after she was found wandering in a stranger's apartment. Patient at the time seemed confused and believed she was definitely in her own apartment. She stated they were "playing games". During PES interview patient was illogical, careless and inadvertently exposing herself. She also mentioned that her was very angry that patient was brought to the hospital again. I met with patient at bedside in the ER and expressed my concern about her well-being and patient agreed to sign in voluntarily for observation and treatment. Patient was admitted to our unit on 03/17/19. Patient was noted to be disorganized and illogical when she admitted to our unit however she was not agitated or threatening. Compliant with medications. Patient was guarded and vague during my visit with her though she was superficially friendly. Reports that circumstances leading to her ER presentation were a misunderstanding but she cannot meaningfully explain how this was possible. This provider expressed concern for her well-being and patient agreed to continue medication adjustment and observation. She continues to deny any AVH, SI or HI. She is oriented x3 and reports the name of her "who is actually my fiancee" is Bernarda Gutierrez. PSYCHIATRIC HISTORY SEE HPI-No psychiatric admissions, no SA. [place] [facility] and prescribed Elavil 150 mg po HS, Effexor XR 150 mg po TID, klonopin 0.5 mg bid, Keppra 750 mg po bid, Trintellix 5 mg po daily, Abilify 10 mg po daily, Vistaril 50 mg po TID. Patient filled the medication on 03/08/19 and prescriber is MASON Martinez. Patient was consulted on by Dr. Baptiste in March 2017 on the medical floor after being admitted for possible seizure disorder. Diagnosis noted as Schizophrenia, Neurocognitive limitations. Medications at the time included Wellbutrin 200 bid (d/c'ed), Effexor 150 TID, Seroquel 200 HS, Klonopin 1 TID, Elavil [address] Baptiste felt patient was on too many medications, possible contributing to lowered seizure threshold. Patient also was unable to get klonopin delivered for a few days at the time and was withdrawing. Patient deferred on voluntary admission to unit for medication adjustment. Dr. Baptiste signed off. SOCIAL HISTORY Patient reports she is engaged to her fiancee "Bernarda Gutierrez". Denies drug or alcohol use. PROGRESS NOTE 03/22/19 I reviewed recent notes which indicate that patient has mainly kept to herself on the unit. She did reluctantly attend a group a few days ago. She is fairly cooperative and friendly with staff members including other medicine who has been consulting. There have been no reports of bizarre behaviors or patient responding to internal stimuli. She is oddly related but not overtly disorganized. She mostly keeps to herself. Patient continues to deny depression, AVH, paranoia or SI/HI. Patient told nursing on 03/20/19 that "the voices are diminished and she is much better". Delusions were not elicited however collateral has not be confirmed regarding patient's Bernarda constantino actually existing. Social work contacted patient's former roommate, Autumn. Autumn indicated that patient doesn't have a friend named Bernarda and no longer has a residence. Social work also contacted patient's mother who also can't confirm that Bernarda exists. Patient herself cannot provide any reliable contact information for Bernarda. Patient has been compliant with medications and denies any issues with recent adjustments. Patient is friendly during my visits and reports that she would like to be discharged. She was encouraged to place a 48 hour notice if SW could not verify a place of residence as this provider did not feel comfortable discharging her considering the circumstances of her presentation. Other than that she doesn't express other concerns. Reports that her appetite is good. Denies any mental distress and remains oriented x3. Diagnostic Results: Schizophrenia Neurocognitive limitation Medication Change: Yes (recently increased abilify) Medical Record Reviewed: Yes Mental Status Examination - Cognitive Function Orientation: Person, Place Attention: WNL Concentration: WNL Fund of Knowledge: Poor - Mood Mood: Neutral - Affect Affect: Constricted - Speech Speech: Appropriate - Formal Thought Process Formal Thought Process: Delusions (about fixaviere "bernarda", cannot confirm that this individual actually exists), Paranoia - Suicidal Ideation Suicidal Ideation: No - Homicidal Ideation Homicidal Ideation: No Goal/Treatment Plan - Goal/Treatment Plan Progress Toward Problem(s) and Goals/Treatment Plan: * Milieu/structure/supportive therapy * Appreciate SW f/u ensuring a safe discharge plan for patient. Neither residency or proof of a fiancee could be verified today by SW and discharge was held. MEDICATION ADJUSTMENT * Effexor XR 150 mg po will be continued once daily * Elavil will be continued 75 mg po HS * Increased Abilify to 15 mg po daily, first day of higher dose is today 03/22/19. Will titrate as needed for disorganization * c/w klonopin 0.5 mg po bid for anxiety * c/w vistaril 50 mg po TID prn: anxiety * Trintellix 5 mg po daily is nonformulary and not provided on the unit * Patient is tolerating medication decreases very well, this provider is questioning her compliance level prior to her recent admissions. Will continue to monitor. * Appreciate f/u by Dr. Owens on 03/17, 03/18, 03/19 and 03/21/19 . * Vitals reviewed and noted below: 03/20/19 03/20/19 03/21/19 07:00 16:00 06:59 Temperature 97.9 F 97.8 F Pulse Rate 112 H 89 75 Respiratory 18 18 Rate Blood Pressure 144/84 117/77 127/84 03/21/19 21:03 Temperature Pulse Rate 76 Respiratory Rate Blood Pressure 120/76 ADMISSION LABS AND STUDIES Please refer to ER report dated 03/17/19 for ROS and physical exam findings. Laboratory Results - last 24 hr 03/19/19 07:00 Sodium 140 Potassium 3.8 Chloride 103 Carbon Dioxide 29 Anion Gap 11 BUN 12 Creatinine 0.7 Est GFR ( Amer) > 60 Est GFR (Non-Af Amer) > 60 Random Glucose 96 Calcium 8.7 Magnesium 2.3 H Total Bilirubin 0.2 AST 25 ALT 27 Alkaline Phosphatase 89 Total Protein 6.8 Albumin 3.6 Globulin 3.1 Albumin/Globulin Ratio 1.2 Laboratory Tests 03/17/19 08:55 Urine Opiates Screen Negative Urine Methadone Screen Negative Ur Barbiturates Screen Negative Ur Phencyclidine Scrn Negative Ur Amphetamines Screen Negative U Benzodiazepines Scrn Negative U Oth Cocaine Metabols Negative U Cannabinoids Screen Negative :
--- NOTE | 2019-03-22 11:20 | CP.PCM.CON ---
<Catracho Ordoñez - Last Filed: 03/22/19 11:17> History of Present Illness - History of Present Illness History of Present Illness: Podiatry consult - Dr. Fuentes 48F seen and evaluated at bedside this AM for elongated nails. States she has not had her nails cut for over a year and has trouble putting on shoes and socks causing her discomfort and occasionally bleeding. Denies any other pedal complaints. States she was a patient of Dr. Fortune and will make an appointment for outpatient f/u once she is discharged from the hospital. Denies n/v/f/c and has no other acute complaints. Past Patient History - Infectious Disease Hx of Infectious Diseases: None - Tetanus Immunizations Tetanus Immunization: Unknown - Past Social History Smoking Status: Current Some Days Smoker - CARDIAC Hx Cardiac Disorders: Yes (SVT) - PULMONARY Hx Respiratory Disorders: Yes (SMOKES CIGARETTES) Hx Asthma: Yes Hx Bronchitis: Yes Hx Chronic Obstructive Pulmonary Disease (COPD): Yes Hx Sleep Apnea: Yes - NEUROLOGICAL Hx Neurological Disorder: Yes HX Cerebrovascular Accident: Yes (SOME SLURRY SPEECH) - HEENT Hx HEENT Problems: No - RENAL Hx Chronic Kidney Disease: No - ENDOCRINE/METABOLIC Hx Endocrine Disorders: No - HEMATOLOGICAL/ONCOLOGICAL Hx Blood Disorders: Yes Hx Anemia: Yes - INTEGUMENTARY Hx Dermatological Problems: No - MUSCULOSKELETAL/RHEUMATOLOGICAL Hx Musculoskeletal Disorders: Yes Hx Back Pain: Yes Hx Falls: Yes Hx Unsteady Gait: Yes (ROLLATOR) - GASTROINTESTINAL Hx Gastrointestinal Disorders: Yes (BARIATRIC SX) - GENITOURINARY/GYNECOLOGICAL Hx Genitourinary Disorders: Yes Hx Urinary Tract Infection: Yes - PSYCHIATRIC Hx Psychophysiologic Disorder: Yes Hx Anxiety: Yes Hx Bipolar Disorder: Yes Hx Depression: Yes Hx Schizophrenia: Yes Hx Substance Use: No - SURGICAL HISTORY Hx Cardiac Catheterization: No Hx Coronary Stent: No - ANESTHESIA Hx Anesthesia: No Hx Anesthesia Reactions: No Hx Malignant Hyperthermia: No Meds Allergies/Adverse Reactions: Allergies Allergy/AdvReac Type Severity Reaction Status Date / Time Penicillins Allergy ANAPHYLAXIS Verified 03/16/19 13:28 bee sting Allergy SWELLING Uncoded 03/17/19 12:48 - Medications Medications: Current Medications Acetaminophen (Tylenol 325mg Tab) 650 mg PO Q6H PRN PRN Reason: Pain, moderate (4-7) Al Hydrox/Mg Hydrox/Simethicone (Maalox Plus 30 Ml) 30 ml PO DAILY PRN PRN Reason: Indigestion / Heartburn Amitriptyline HCl (Elavil) 75 mg PO HS [facility] Last Admin: 03/21/19 21:02 Dose: 75 mg Aripiprazole (Abilify) 15 mg PO DAILY [facility]; Protocol Last Admin: 03/22/19 08:58 Dose: 15 mg Chlorpromazine (Thorazine) 25 mg IM Q6H PRN; Protocol PRN Reason: Severe Agitation Chlorpromazine (Thorazine) 25 mg PO Q6H PRN; Protocol PRN Reason: Agitation Clonazepam (Klonopin) 0.5 mg PO BID [facility]; Protocol Last Admin: 03/22/19 08:58 Dose: 0.5 mg Diphenhydramine HCl (Benadryl) 25 mg IM Q6H PRN PRN Reason: Side Effects Diphenhydramine HCl (Benadryl) 25 mg PO Q6H PRN PRN Reason: Agitation Levetiracetam (Keppra) 500 mg PO BID [facility] Last Admin: 03/22/19 08:58 Dose: 500 mg Lorazepam (Ativan) 1 mg IM Q6H PRN; Protocol PRN Reason: Severe Anxiety/SevereAgitation Lorazepam (Ativan) 1 mg PO Q6H PRN; Protocol PRN Reason: Anxiety Magnesium Hydroxide (Milk Of Magnesia) 30 ml PO DAILY PRN PRN Reason: Constipation Nystatin/Triamcinolone Acetonide (Nystatin/Triamcinolone Cream) 1 ea TOP BID [facility] Last Admin: 03/22/19 09:02 Dose: 1 applic Pantoprazole Sodium (Protonix Ec Tab) 40 mg PO 30 [facility] Last Admin: 03/22/19 06:20 Dose: 40 mg Venlafaxine HCl (Effexor Xr) 150 mg PO DAILY [facility] Last Admin: 03/22/19 08:58 Dose: 150 mg Physical Exam - Constitutional Appears: Non-toxic - Head Exam Head Exam: ATRAUMATIC - Extremities Exam Additional comments: B/l LE exam VASC: DP and PT pulses palpable DERM: elongated dystrophic nails x 10, no other open lesions or wounds present ORTHO: mild tenderness on palpation of nails beds NEURO: gross and protective sensation intact - Neurological Exam Neurological exam: Alert, Oriented x3 - Psychiatric Exam Psychiatric exam: Normal Affect Results - Vital Signs Recent Vital Signs: Last Vital Signs Temp 97.9 F 03/22/19 06:43 Pulse 85 03/22/19 06:43 Resp 16 03/22/19 06:43 BP 129/85 03/22/19 06:43 Pulse Ox 100 03/17/19 09:25 - Labs Result Diagrams: 03/19/19 07:00 Assessment & Plan - Assessment and Plan (Free Text) Assessment: 48F with elongated dystrophic nails Plan: Patient seen and evaluated with Dr. Fuentes VSS Nails sharply cut with nail nipper x10 without incident Patient will make f/u appointment with Dr. Fuentes upon d/c Thank you for the consult - Date & Time Date: 03/22/19 Time: 11:21 <Brielle Fuentes - Last Filed: 03/22/19 17:37> Meds - Medications Medications: Current Medications Acetaminophen (Tylenol 325mg Tab) 650 mg PO Q6H PRN PRN Reason: Pain, moderate (4-7) Al Hydrox/Mg Hydrox/Simethicone (Maalox Plus 30 Ml) 30 ml PO DAILY PRN PRN Reason: Indigestion / Heartburn Amitriptyline HCl (Elavil) 75 mg PO HS [facility] Last Admin: 03/21/19 21:02 Dose: 75 mg Aripiprazole (Abilify) 15 mg PO DAILY [facility]; Protocol Last Admin: 03/22/19 08:58 Dose: 15 mg Chlorpromazine (Thorazine) 25 mg IM Q6H PRN; Protocol PRN Reason: Severe Agitation Chlorpromazine (Thorazine) 25 mg PO Q6H PRN; Protocol PRN Reason: Agitation Clonazepam (Klonopin) 0.5 mg PO BID [facility]; Protocol Last Admin: 03/22/19 16:15 Dose: 0.5 mg Diphenhydramine HCl (Benadryl) 25 mg IM Q6H PRN PRN Reason: Side Effects Diphenhydramine HCl (Benadryl) 25 mg PO Q6H PRN PRN Reason: Agitation Levetiracetam (Keppra) 500 mg PO BID [facility] Last Admin: 03/22/19 16:48 Dose: Not Given Lorazepam (Ativan) 1 mg IM Q6H PRN; Protocol PRN Reason: Severe Anxiety/SevereAgitation Lorazepam (Ativan) 1 mg PO Q6H PRN; Protocol PRN Reason: Anxiety Magnesium Hydroxide (Milk Of Magnesia) 30 ml PO DAILY PRN PRN Reason: Constipation Mupirocin (Bactroban Ointment) 0 gm TOP BID [facility] Last Admin: 03/22/19 16:16 Dose: 1 unit Pantoprazole Sodium (Protonix Ec Tab) 40 mg PO 0630 [facility] Last Admin: 03/22/19 06:20 Dose: 40 mg Trimethoprim/Sulfamethoxazole (Bactrim Ds Tab) 1 tab PO BID [facility]; Protocol Last Admin: 03/22/19 16:16 Dose: 1 tab Venlafaxine HCl (Effexor Xr) 150 mg PO DAILY [facility] Last Admin: 03/22/19 08:58 Dose: 150 mg Results - Vital Signs Recent Vital Signs: Last Vital Signs Temp 97.9 F 03/22/19 06:43 Pulse 77 03/22/19 16:00 Resp 16 03/22/19 06:43 BP 134/84 03/22/19 16:00 Pulse Ox 100 03/17/19 09:25 - Labs Result Diagrams: 03/19/19 07:00 Attending/Attestation - Attestation I have personally seen and examined this patient.: Yes I have fully participated in the care of the patient.: Yes I have reviewed all pertinent clinical information: Yes
--- NOTE | 2019-03-22 14:43 | PN ---
DATE: 03/22/2019 SUBJECTIVE: The patient is a 48-year-old, seen and examined, complain of boil on her right medial aspect of the thigh, complain of heavy pain there, otherwise doing better. From psych point of view, she states she feels much more clear and because she was very forgetful. PHYSICAL EXAMINATION: VITAL SIGNS: She is afebrile, pulse 85, respirations 16, and blood pressure 129/85. LUNGS: Bilateral fair airflow. No rhonchi or crackle. HEART: S1 and S2 audible. ABDOMEN: Soft and nontender. No rebound. No guarding. NEUROLOGIC: She is awake and alert. Able to communicate. ASSESSMENT: 1. She has non-fluctuant abscess on the medial aspect of the right thigh. 2. History of bipolar disorder. 3. History of hyperlipidemia. PLAN: We will start the patient on Bactrim and we will apply Bactroban to the area, we will monitor if she need I and D. Simi Owens MD
[2019-03-22] MEDS: Mupirocin 2% Ointment 15 GM TUBE TOP SCH (16:16)
[2019-03-22] MEDS: Tmp-Smz 800 mg-160 mg DS Tab PO SCH (16:16)
[2019-03-23] MEDS: Pantoprazole 40 mg EC Tab PO SCH (06:59)
[2019-03-23] MEDS: Mupirocin 2% Ointment 15 GM TUBE TOP SCH ×2 (08:34→15:58)
[2019-03-23] MEDS: Venlafaxine 75 mg ER Cap PO SCH (08:35)
[2019-03-23] MEDS: Tmp-Smz 800 mg-160 mg DS Tab PO SCH ×2 (08:36→15:48)
--- NOTE | 2019-03-23 14:14 | PCM.PYCHPN ---
Psychiatric Progress Note - Psychiatric Progress Note Patient seen today, length of contact: 30min Patient Chief Complaint: "I feel balanced now, I don't remember why I came to the hospital, but I remember you, you are ..." (pt was seen by last week, this telegraphic typewriter installer is taking over, pt appears to be confused) Problems Identified/Issues Discussed: Current symptoms, previous history, psychosis, medications. Medical Problems: History of seizure disorder, obesity Diagnostic Results: 03/19/19 07:00 Lab Results 03/19/19 07:00: Sodium 140, Potassium 3.8, Chloride 103, Carbon Dioxide 29, Anion Gap 11, BUN 12, Creatinine 0.7, Est GFR ( Amer) > 60, Est GFR (Non- Af Amer) > 60, Random Glucose 96, Calcium 8.7, Magnesium 2.3 H, Total Bilirubin 0.2, AST 25, ALT 27, Alkaline Phosphatase 89, Total Protein 6.8, Albumin 3.6, Globulin 3.1, Albumin/Globulin Ratio 1.2 03/17/19 08:55: Urine Opiates Screen Negative, Urine Methadone Screen Negative, Ur Barbiturates Screen Negative, Ur Phencyclidine Scrn Negative, Ur Amphetamines Screen Negative, U Benzodiazepines Scrn Negative, U Oth Cocaine Metabols Negative, U Cannabinoids Screen Negative Vital Signs Temp Pulse Resp BP Pulse Ox 03/23/19 07:06 98.6 F 90 18 126/84 03/22/19 16:00 77 134/84 03/22/19 06:43 97.9 F 85 16 129/85 03/21/19 21:03 76 120/76 03/21/19 06:59 97.8 F 75 18 127/84 03/20/19 16:00 89 117/77 03/20/19 07:00 97.9 F 112 H 18 144/84 03/19/19 16:00 97 H 135/79 03/19/19 07:23 98.3 F 99 H 20 107/67 03/18/19 16:28 103 H 113/77 03/18/19 07:20 98.3 F 114 H 20 121/81 03/17/19 16:00 111 H 152/89 H 03/17/19 09:25 98.4 F 118 H 20 130/83 100 03/17/19 07:30 75 18 132/74 100 03/17/19 03:00 98.3 F 84 18 138/85 100 DSM 5 Symptoms Update: as per 's report on 03/17/19 patient was BIB EMS after she was found wandering in a stranger's apartment. Patient at the time seemed confused and believed she was definitely in her own apartment. She stated they were "playing games". During PES interview patient was illogical, careless and inadvertently exposing herself. She also mentioned that her was very angry that patient was brought to the hospital again. Patient was noted to be disorganized and illogical when she admitted to our unit however she was not agitated or threatening. Compliant with medications. PSYCHIATRIC HISTORY SEE HPI-No psychiatric admissions, no SA. In treatment at [facility] [place] [place] and prescribed Elavil 150 mg po HS, Effexor XR 150 mg po TID, klonopin 0.5 mg bid, Keppra 750 mg po bid, Trintellix 5 mg po daily, Abilify 10 mg po daily, Vistaril 50 mg po TID. Patient filled the medication on 03/08/19 and prescriber is MASON Martinez. Patient was seen today at the treatment team meeting, notes reviewed, discussed with the treatment team. Patient presented with poor personal hygiene, does not remember this telegraphic typewriter installer, referring her as "", patient still appears to be confused, psychotic, seems wanted to present much better than she actually is, pt is inconsistent with her symptoms, pt said that last hallucinations were "couple of months ago..", but to SW said that last time he had hallucinations yesterday "I don't listen to the voices, I just ignore them." pt also has tendency of acting on them, pt was hearing voices telling her to leave the house and prior to this admission pt was outside for many hours until bystander called 911. so far pt tolerates meds well, no side effects were observed or reported, AIMS 0, no EPS. as per staff pt has some improvement, but still confused and disorganized. Diagnostic Results: Schizophrenia Neurocognitive limitation Medication Change: Yes (abilify increased) Medical Record Reviewed: Yes Consults ordered or reviewed: pt was seen by medical team Mental Status Examination - Cognitive Function Orientation: Person, Place Attention: WNL Concentration: WNL Fund of Knowledge: Poor - Mood Mood: Neutral - Affect Affect: Constricted - Speech Speech: Appropriate - Formal Thought Process Formal Thought Process: Delusions (about dougie "bernarda", cannot confirm that this individual actually exists), Paranoia - Suicidal Ideation Suicidal Ideation: No - Homicidal Ideation Homicidal Ideation: No Goal/Treatment Plan - Goal/Treatment Plan Need for Continued Stay: Remain at risks for inpatient hospitalization, Severe depression anxiety, Discharge may exacerbated symptoms, Severe functional impairment Progress Toward Problem(s) and Goals/Treatment Plan: Milieu/structure/supportive therapy SW consultation for discharge plan and social issues Med management abilify increased to 10mg bid for psychosis the rest of meds will be continued Family involvement Follow up on labs Will monitor closely Pt was educated about risk/benefits and alternatives of medications, coping strategies (safety plan, suicide prevention), relapse prevention, importance of follow up with psychiatrist and therapist, stay away from drugs/alcohol/smoking Estimated Date of D/C: 03/25/19
--- NOTE | 2019-03-23 17:50 | PN ---
DATE: 03/23/2019 SUBJECTIVE: The patient is 48 years old, seen and examined, doing well. leg boil has reduced in size and pain has improved. No fever or chills. No nausea or vomiting. PHYSICAL EXAMINATION: VITAL SIGNS: She is afebrile, pulse 90, respirations 18, and blood pressure 126/84. LUNGS: Bilateral fair airflow. No rhonchi or crackle. HEART: S1 and S2 audible. ABDOMEN: Soft and nontender. No rebound. No guarding. EXTREMITIES: Her right thigh abscess has less erythema, still operator to touch. NEUROLOGIC: She is awake, alert, and oriented and ambulatory. ASSESSMENT: 1. History of bipolar disorder. 2. History of hyperlipidemia. 3. Right thigh abscess. PLAN: Currently on Bactrim DS and Bactroban. We will continue to monitor. Psych medication is being adjusted by the psychiatrist. We will follow up in a.m. Simi Owens MD
[2019-03-24] MEDS: Pantoprazole 40 mg EC Tab PO SCH (06:40)
[2019-03-24] MEDS: Venlafaxine 75 mg ER Cap PO SCH (08:47)
[2019-03-24] MEDS: Tmp-Smz 800 mg-160 mg DS Tab PO SCH ×2 (08:47→16:39)
[2019-03-24] MEDS: Mupirocin 2% Ointment 15 GM TUBE TOP SCH ×2 (09:00→16:40)
--- NOTE | 2019-03-24 15:39 | PCM.PYCHPN ---
Psychiatric Progress Note - Psychiatric Progress Note Patient seen today, length of contact: 30min Patient Chief Complaint: "I learned this admission that I am going to elma my previous psychiatrist, I feel that he was giving me all wrong medications..." Problems Identified/Issues Discussed: Current symptoms, previous history, psychosis, medications. Medical Problems: History of seizure disorder, obesity Diagnostic Results: 03/19/19 07:00 Lab Results 03/19/19 07:00: Sodium 140, Potassium 3.8, Chloride 103, Carbon Dioxide 29, Anion Gap 11, BUN 12, Creatinine 0.7, Est GFR ( Amer) > 60, Est GFR (Non- Af Amer) > 60, Random Glucose 96, Calcium 8.7, Magnesium 2.3 H, Total Bilirubin 0.2, AST 25, ALT 27, Alkaline Phosphatase 89, Total Protein 6.8, Albumin 3.6, Globulin 3.1, Albumin/Globulin Ratio 1.2 03/17/19 08:55: Urine Opiates Screen Negative, Urine Methadone Screen Negative, Ur Barbiturates Screen Negative, Ur Phencyclidine Scrn Negative, Ur Amphetamines Screen Negative, U Benzodiazepines Scrn Negative, U Oth Cocaine Metabols Negative, U Cannabinoids Screen Negative Vital Signs Temp Pulse Resp BP Pulse Ox 03/23/19 07:06 98.6 F 90 18 126/84 03/22/19 16:00 77 134/84 03/22/19 06:43 97.9 F 85 16 129/85 03/21/19 21:03 76 120/76 03/21/19 06:59 97.8 F 75 18 127/84 03/20/19 16:00 89 117/77 03/20/19 07:00 97.9 F 112 H 18 144/84 03/19/19 16:00 97 H 135/79 03/19/19 07:23 98.3 F 99 H 20 107/67 03/18/19 16:28 103 H 113/77 03/18/19 07:20 98.3 F 114 H 20 121/81 03/17/19 16:00 111 H 152/89 H 03/17/19 09:25 98.4 F 118 H 20 130/83 100 03/17/19 07:30 75 18 132/74 100 03/17/19 03:00 98.3 F 84 18 138/85 100 DSM 5 Symptoms Update: Patient was seen today at the treatment team meeting with medical student as well as mental health worker, notes reviewed, discussed with the treatment team. Patient presented with poor personal hygiene, patient reported that she feels well, present moment "I cleared up, I feel happy, I feel good on medications what you are prescribing me" patient reported prior to come to the hospital she was feeling police is after her and she was hearing voices that she needs to le ave her apartment and never come back. Patient reported that she was trying to ignore the voices but based on presentation last admission patient was staying outside for many hours. Patient is mildly paranoid that her outpatient psychiatrist was giving her old home medications, and she is planning to elma him. Patient contracted for safety, patient denies any thoughts of harming himself or others, denied intent or plan. so far pt tolerates meds well, no side effects were observed or reported, AIMS 0, no EPS. as per staff pt has some improvement, no agitation or aggression. Diagnostic Results: Schizophrenia Neurocognitive limitation Medication Change: Yes (abilify increased) Medical Record Reviewed: Yes Consults ordered or reviewed: pt was seen by medical team Mental Status Examination - Cognitive Function Orientation: Person, Place Attention: WNL Concentration: WNL Association: Loose Fund of Knowledge: Poor - Mood Mood: Neutral - Affect Affect: Constricted (But more reactive mood congruent) - Speech Speech: Appropriate (more coherent and organized) - Formal Thought Process Formal Thought Process: Delusions (Improving), Paranoia (Less), Circumstantial - Suicidal Ideation Suicidal Ideation: No - Homicidal Ideation Homicidal Ideation: No Goal/Treatment Plan - Goal/Treatment Plan Need for Continued Stay: Remain at risks for inpatient hospitalization, Severe depression anxiety, Discharge may exacerbated symptoms, Severe functional impairment Progress Toward Problem(s) and Goals/Treatment Plan: Milieu/structure/supportive therapy SW consultation for discharge plan and social issues Med management abilify increased to 10mg bid for psychosis 03/23/19 the rest of meds will be continued Family involvement Follow up on labs Will monitor closely Pt was educated about risk/benefits and alternatives of medications, coping strategies (safety plan, suicide prevention), relapse prevention, importance of follow up with psychiatrist and therapist, stay away from drugs/alcohol/smoking Estimated Date of D/C: 03/25/19
--- NOTE | 2019-03-24 21:29 | PN ---
DATE: 03/24/2019 SUBJECTIVE: The patient is 48 years old, seen and examined, and does not offer any complaints. She states her thigh lump is improving, it does not hurt anymore. PHYSICAL EXAMINATION: VITAL SIGNS: She is afebrile, pulse 85, respirations 18, blood pressure 132/81. LUNGS: Bilateral fair airflow. No rhonchi or crackle. HEART: S1 and S2 audible. ABDOMEN: Soft and nontender. No rebound. No guarding. NEUROLOGIC: She is awake and alert, able to communicate. LABORATORY DATA: Her right thigh cellulitis is improving. ASSESSMENT: 1. Right thigh cellulitis. 2. Bipolar disorder. 3. Anxiety disorder. 4. Hyperlipidemia. PLAN: Continue patient on Bactrim DS. Continue to apply Bactroban. Her psychiatric medication is being adjusted by psychiatrist. Simi Owens MD
[2019-03-25] MEDS: Pantoprazole 40 mg EC Tab PO SCH (06:38)
[2019-03-25 06:42] VITALS: BP 101/69; PULSE 74; RESP 16; TEMP 97.9
[2019-03-25] MEDS: Mupirocin 2% Ointment 15 GM TUBE TOP SCH (08:15)
[2019-03-25] MEDS: Tmp-Smz 800 mg-160 mg DS Tab PO SCH (08:15)
[2019-03-25] MEDS: Venlafaxine 75 mg ER Cap PO SCH (08:15)
--- NOTE | 2019-03-25 16:04 | PCM.PYCHDC ---
Mental Status Examination - Mental Status Examination Orientation: Person, Place, Situation, Time Memory: Intact Mood: Neutral Affect: Broad (And mood congruent) Speech: Appropriate Attention: WNL Concentration: WNL Association: WNL Fund of Knowledge: WNL Formal Thought Process: Other (Thought process mildly disorganized but patient is not acutely psychotic) Description of patient's judgement and insight: Pt has improved insight into mental and medical illness, pt was compliant with medications and unit rules and regulations, pt was going to groups, was calm, cooperative, socially appropriate, no behavioral incidents, no agitation, no aggression. Psychotic Thoughts and Behaviors: Pt denied v/a/t hallucinations, denied paranoid ideations, pt does not appear to be acutely psychotic. Suicidal Ideation: No Current Homicidal Ideation?: No Plan: pt adamantly denied thoughts of harming self or others denied intent or plan. Discharge Summary - Discharge Note Reason for Hospitalization: Disorganized thoughts and behavior Psychiatric History (includes Medical, Family, Personal Hx): See HPI Laboratory Data: 03/19/19 07:00 Lab Results 03/19/19 07:00: Sodium 140, Potassium 3.8, Chloride 103, Carbon Dioxide 29, Anion Gap 11, BUN 12, Creatinine 0.7, Est GFR ( Amer) > 60, Est GFR (Non- Af Amer) > 60, Random Glucose 96, Calcium 8.7, Magnesium 2.3 H, Total Bilirubin 0.2, AST 25, ALT 27, Alkaline Phosphatase 89, Total Protein 6.8, Albumin 3.6, Globulin 3.1, Albumin/Globulin Ratio 1.2 03/17/19 08:55: Urine Opiates Screen Negative, Urine Methadone Screen Negative, Ur Barbiturates Screen Negative, Ur Phencyclidine Scrn Negative, Ur Amphetamines Screen Negative, U Benzodiazepines Scrn Negative, U Oth Cocaine Metabols Negative, U Cannabinoids Screen Negative Vital Signs Temp Pulse Resp BP Pulse Ox 03/25/19 06:42 97.9 F 74 16 101/69 03/24/19 16:00 86 132/81 03/24/19 06:37 98.1 F 85 18 101/70 03/23/19 16:00 72 136/85 03/23/19 07:06 98.6 F 90 18 126/84 03/22/19 16:00 77 134/84 03/22/19 06:43 97.9 F 85 16 129/85 03/21/19 21:03 76 120/76 03/21/19 06:59 97.8 F 75 18 127/84 03/20/19 16:00 89 117/77 03/20/19 07:00 97.9 F 112 H 18 144/84 03/19/19 16:00 97 H 135/79 03/19/19 07:23 98.3 F 99 H 20 107/67 03/18/19 16:28 103 H 113/77 03/18/19 07:20 98.3 F 114 H 20 121/81 03/17/19 16:00 111 H 152/89 H 03/17/19 09:25 98.4 F 118 H 20 130/83 100 03/17/19 07:30 75 18 132/74 100 03/17/19 03:00 98.3 F 84 18 138/85 100 Consultations:: List each consultation separately and include: 1. Reason for request. 2. Findings. 3. Follow-up Consultations: pt was seen by medical team Please see note for more detail Summary of Hospital Course include:: 1. Description of specific treatment plan utilized for patients during their course of treatmen. 2. Summarize the time- course for resolution of acute symptoms and/or regressed behaviors. 3. Describe issues identified and worked on during hospitalization. 4. Describe medication utilized. 5. Describe medical problems identified and treated. 6. Reassessment of suicide risk Summary of Hospital Course: as per 's report on 03/17/19 patient was BIB EMS after she was found wandering in a stranger's apartment. Patient at the time seemed confused and believed she was definitely in her own apartment. She stated they were "playing games". During PES interview patient was illogical, careless and inadvertently exposing herself. She also mentioned that her was very angry that patient was brought to the hospital again. Patient was noted to be disorganized and illogical when she admitted to our unit however she was not agitated or threatening. Compliant with medications. Please see admission notes for more detailed information. Patient was stabilized and the following medications: Amitriptyline 75 mg at the nighttime for depression Abilify 20 mg daily for psychosis and mood stabilization Klonopin 0.5 mg twice a day for anxiety Effexor 150 mg daily for depression anxiety (dose was decreased from 150mg tid) Patient tolerated medications well, no side effects observed or reported, pain score 0, no EPS. Patient improved significantly, thought process more organized and less psychotic, patient was compliant with the treatment, no aggression, no agitation, patient deemed reached maximal effect from this acute hospitalization, seems ready to be discharged. During this hospitalization patient had medication management, group therapy, therapeutic milieu. At the time of the discharge patient was considered to pose no imminent danger to self or others, will be following up at [facility], information about follow up appointment, time and address provided to the pt, (see SW note for more detailed information). It is a patient responsibility to follow up with outpatient clinic, PMD as well as specialists In case patient will need to obtain results of studies pending at discharge, patient was provided with contact information of Psychiatric Inpatient unit [phone] as well as Medical Record Department [phone], as well as [facility] team [phone]. Patient denies using drugs, denies alcohol consumption, denied smoking pt was provided with prescriptions see medication reconciliation form Pt was educated about safety plan in case of worsening of symptoms or in case of suicidal or homicidal ideation call 911 or go to the nearest ER, also was educated to take meds as prescribed and stay away from drugs, pt verbalized understanding. - Diagnosis (1) Schizophrenia Status: Chronic Priority: High - Final Diagnosis (DSM 5) Condition upon Discharge: STABLE Disposition: HOME/ ROUTINE Follow-up Treatment Plan: At the time of the discharge patient was considered to pose no imminent danger to self or others, will be following up at [facility], information about follow up appointment, time and address provided to the pt, (see SW note for more detailed information). It is a patient responsibility to follow up with outpatient clinic, PMD as well as specialists In case patient will need to obtain results of studies pending at discharge, patient was provided with contact information of Psychiatric Inpatient unit [phone] as well as Medical Record Department [phone], [facility] [phone]. Patient denies using drugs, denies alcohol consumption, denied smoking pt was provided with prescriptions see medication reconciliation form Pt was educated about safety plan in case of worsening of symptoms or in case of suicidal or homicidal ideation call 911 or go to the nearest ER, also was educated to take meds as prescribed and stay away from drugs, pt verbalized understanding. Prescriptions/Medication Reconciliation: Amitriptyline [Elavil] 75 mg PO HS #45 tab ARIPiprazole [Abilify] 10 mg PO BID #30 tab Atorvastatin [Lipitor] 10 mg PO DIN #7 tab clonazePAM [Klonopin] 0.5 mg PO BID #30 tab levETIRAcetam [Keppra] 500 mg PO BID #14 tab Mupirocin 2% Ointment [Bactroban Ointment] 1 units TOP BID #1 tube Pantoprazole [Protonix EC Tab] 40 mg PO 0630 #7 ect Venlafaxine [Effexor XR] 150 mg PO DAILY #14 cer - Smoking Cessation Smoking Cessation Medication prescribed: No Reason for not providing: Denies smoking - Antipsychotic Medications Pt discharged on 2 or more routine antipsychotic medications: No
--- NOTE | 2019-03-25 21:12 | PN ---
DATE: 03/25/2019 SUBJECTIVE: The patient is 48 years old. Seen and examined. Doing well. She states her right thigh lump has gotten significantly improved. She is being discharged home today. PHYSICAL EXAMINATION: VITAL SIGNS: She is afebrile, pulse 74, respirations 16, and blood pressure 101/69. HEENT: She has symmetrical face, nonicteric sclerae, pink conjunctivae. LUNGS: Bilateral fair airflow. No rhonchi or crackles. HEART: S1 and S2 audible. ABDOMEN: Soft and nontender. No rebound. No guarding. NEUROLOGIC: The patient is awake and alert, able to communicate. SKIN: Her right thigh erythema has significantly improved, but still has central erythema. No fluctuation noted. ASSESSMENT: 1. Bipolar disorder. 2. Morbid obesity. 3. Hyperlipidemia. 4. Right thigh abscess. PLAN: The patient still needs antibiotics for five more days. She will continue Bactroban to the area. She will follow up in the office in a week. Simi Owens MD
== END 2019-03-25 13:49 | disposition home or self-care (01) | DRG 885 ==
LOC: ED 02:39 → ERH 08:08 → PSYC 09:28
PROVIDERS: ADMIT Psychologist; ATTEND Psychologist
DX: F25.9 Schizoaffective disorder, unspecified (principal); L02.415 Cutaneous abscess of right lower limb; L03.115 Cellulitis of right lower limb; Z68.41 Body mass index [BMI] 40.0-44.9, adult; F31.9 Bipolar disorder, unspecified; L02.429 Furuncle of limb, unspecified; J44.9 Chronic obstructive pulmonary disease, unspecified; B36.8 Other specified superficial mycoses; F17.210 Nicotine dependence, cigarettes, uncomplicated; G40.909 Epilepsy, unspecified, not intractable, without status epilepticus; E66.01 Morbid (severe) obesity due to excess calories; E78.5 Hyperlipidemia, unspecified; G47.30 Sleep apnea, unspecified; K27.9 Peptic ulcer, site unspecified, unspecified as acute or chronic, without hemorrhage or perforation; K29.70 Gastritis, unspecified, without bleeding; Z88.0 Allergy status to penicillin

== ENCOUNTER 2019-04-17 15:09 | Observation (INO) | payer OTHER ==
--- NOTE | 2019-04-17 15:27 | ED PDOC ---
Arrival/HPI - General Chief Complaint: Psychiatric Evaluation Time Seen by Provider: 04/17/19 15:10 Historian: Patient, Family - History of Present Illness Narrative History of Present Illness (Text): 16:58 48 y/o female with PMH of schizophrenia, bipolar disorder, anxiety, depression, seizure disorder (on Keppra), CVA, SVT, Anemia, COPD, and GERD presents to the ED with family member for evaluation of syncope. This afternoon, family friend states they were in the other room and when they went to speak to the pt, she was found on the ground, with a pulse, and not responding to voice. Family friend states 911 instructed her to begin mouth to mouth. Pt regained consciousness. Friend denies seizure activity. Per EMS, pt was alert and awake when they came to the house, and was ranting about God speaking to her. Friend states that pt has not been taking her medications or pursuing psychiatric followup as instructed upon discharge from psychiatric floor on 03/25/19. No physical complaints at this time. Denies SI, HI, headache, dizziness, vision changes, neck pain, back pain, nausea, vomiting, abdominal pain, urinary symp toms,chest pain, SOB, or any other associated symptoms. Family friend and patient are poor historians, HPI limited. Past Medical History - Provider Review Nursing Documentation Reviewed: Yes - Infectious Disease Hx of Infectious Diseases: None - Tetanus Immunization Tetanus Immunization: Unknown - Cardiac Hx Cardiac Disorders: Yes (SVT) - Pulmonary Hx Respiratory Disorders: Yes (SMOKES CIGARETTES) Hx Asthma: Yes Hx Bronchitis: Yes Hx Chronic Obstructive Pulmonary Disease (COPD): Yes Hx Sleep Apnea: Yes - Neurological Hx Neurological Disorder: Yes HX Cerebrovascular Accident: Yes (SOME SLURRY SPEECH) - HEENT Hx HEENT Disorder: No - Renal Hx Renal Disorder: No - Endocrine/Metabolic Hx Endocrine Disorders: No - Hematological/Oncological Hx Blood Disorders: Yes Hx Anemia: Yes - Integumentary Hx Dermatological Disorder: No - Musculoskeletal/Rheumatological Hx Musculoskeletal Disorders: Yes Hx Back Pain: Yes Hx Falls: Yes Hx Unsteady Gait: Yes (ROLLATOR) - Gastrointestinal Hx Gastrointestinal Disorders: Yes (BARIATRIC SX) - Genitourinary/Gynecological Hx Genitourinary Disorders: Yes Hx Urinary Tract Infection: Yes - Psychiatric Hx Psychophysiologic Disorder: Yes Hx Anxiety: Yes Hx Bipolar Disorder: Yes Hx Depression: Yes Hx Schizophrenia: Yes Hx Substance Use: No - Past Surgical History Past Surgical History: No Previous - Surgical History Hx Cardiac Catheterization: No Hx Coronary Stent: No - Anesthesia Hx Anesthesia: No Hx Anesthesia Reactions: No Hx Malignant Hyperthermia: No - Suicidal Assessment Feels Threatened In Home Enviroment: No Family/Social History - Physician Review Nursing Documentation Reviewed: Yes Family/Social History: No Known Family HX Smoking Status: Current Some Days Smoker Hx Alcohol Use: No Hx Substance Use: No Allergies/Home Meds Allergies/Adverse Reactions: Allergies Penicillins Allergy (Verified 04/17/19 15:19) ANAPHYLAXIS bee sting Allergy (Uncoded 04/17/19 15:19) SWELLING Review of Systems - Review of Systems Constitutional: Normal. absent: Fevers Eyes: Normal. absent: Vision Changes ENT: Normal. absent: Sore Throat, Sinus Congestion Respiratory: Normal. absent: SOB, Cough Cardiovascular: Normal. absent: Chest Pain, Palpitations, Syncope Gastrointestinal: Normal. absent: Abdominal Pain, Nausea, Vomiting Genitourinary Female: Normal. absent: Dysuria, Frequency, Vaginal Bleeding, Va ginal Discharge Musculoskeletal: Normal Skin: Normal. absent: Rash Neurological: Normal. absent: Headache, Dizziness Psychiatric: Other (auditory hallucinations). absent: Suicidal Ideation Physical Exam Vital Signs Reviewed: Yes Temperature: Afebrile Blood Pressure: Hypertensive Pulse: Regular Respiratory Rate: Normal Appearance: Positive for: Well-Appearing, Non-Toxic, Comfortable, Other (Obese) Pain Distress: None Mental Status: Positive for: Alert and Oriented X 3 - Systems Exam Head: Present: Atraumatic, Normocephalic Pupils: Present: PERRL Conjunctiva: Present: Normal Mouth: Present: Moist Mucous Membranes Neck: Present: Normal Range of Motion Respiratory/Chest: Present: Clear to Auscultation, Good Air Exchange. No: Respiratory Distress, Accessory Muscle Use Cardiovascular: Present: Regular Rate and Rhythm, Normal S1, S2, Peripheal Pulses Present Abdomen: Present: Normal Bowel Sounds, Other (obese). No: Tenderness, Distention, Peritoneal Signs Back: Present: Normal Inspection. No: CVA Tenderness, Midline Tenderness, Par aspinal Tenderness Upper Extremity: Present: Normal Inspection, Normal ROM, NORMAL PULSES, Neurovascularly Intact, Capillary Refill < 2s. No: Cyanosis, Edema, Temperature Abnormalties Lower Extremity: Present: Normal Inspection, NORMAL PULSES, Normal ROM, Neurovascularly Intact, Capillary Refill < 2 s. No: Edema, Tenderness, Temperature Abnormalties Neurological: Present: GCS=15, Motor Func Grossly Intact, Normal Sensory Function, Gait Normal Skin: Present: Warm, Dry, Normal Color. No: Rashes Psychiatric: Present: Alert, Anxious, Delusional, Other (Flight of ideas). No: Suicidal Ideation, Homicidal Ideation Medical Decision Making ED Course and Treatment: Initial Plan: * Labs * UA, UDS * Acetaminophen, Salicylate, Alcohol Levels * CT Head * EKG * CXR EKG shows NSR at 85 with PACs 16:33 Bloodwork reviewed, remarkable for microcytic anemia (pt with history of anemia, last 9.0) and hypokalemia (repleted with 40mEq PO KCl). Pending Urine, Head CT, and CXR 17:30 POC negative UA shows trace leuk esterase 17:45 CT Head negative CXR negative 17:[address] Mathews, covering Dr. Owens who accepted patient for inpatient medical observation with diagnoses of syncope, schizophrenia, and hypokalemia. Requests Priscilla (neurology) and documentation writer psychiatry consults. Pt updated with change in disposition, resting comfortably in stretcher in no acute distress at this time. Vitals stable. - Lab Interpretations Lab Results: 04/17/19 15:33 04/17/19 15:33 Lab Results 04/17/19 16:56: Urine Opiates Screen Negative, Urine Methadone Screen Negative, Ur Barbiturates Screen Negative, Ur Phencyclidine Scrn Negative, Ur Amphetamines Screen Negative, U Benzodiazepines Scrn Negative, U Oth Cocaine Metabols Negative, U Cannabinoids Screen Negative 04/17/19 16:56: Urine Color Yellow, Urine Appearance Slight-cloudy, Urine pH 6.0, Ur Specific Hatch 1.015, Urine Protein Negative, Urine Glucose (UA) Negative, Urine Ketones Negative, Urine Blood Negative, Urine Nitrate Negative, Urine Bilirubin Negative, Urine Urobilinogen 0.2, Ur Leukocyte Esterase Trace H, Urine RBC 0 - 2, Urine WBC 2 - 5, Ur Epithelial Cells 6 - 8 H, Urine Bacteria Few, Urine HCG, Qual Negative 04/17/19 15:33: Alcohol, Quantitative < 10 04/17/19 15:33: Salicylates < 1 L, Acetaminophen < 10.0 L 04/17/19 15:33: Sodium 139, Potassium 3.2 L, Chloride 103, Carbon Dioxide 27, Anion Gap 12, BUN 11, Creatinine 0.6 L, Est GFR ( Amer) > 60, Est GFR (Non-Af Amer) > 60, Random Glucose 110, Calcium 9.2, Total Bilirubin 0.4, AST 35, ALT 33, Alkaline Phosphatase 70, Troponin I < 0.01, Total Protein 7.3, Albumin 3.9, Globulin 3.3, Albumin/Globulin Ratio 1.2 04/17/19 15:33: WBC 7.7, RBC 4.29, Hgb 9.4 L, Hct 31.3 L, MCV 73.0 L, MCH 21.9 L , MCHC 30.0 L, RDW 19.4 H, Plt Count 417, MPV 9.2, Neut % (Auto) 64.8, Lymph % (Auto) 28.0, Ness % (Auto) 4.8, Eos % (Auto) 1.8, Baso % (Auto) 0.6, Lymph # (Auto) 2.2, Ness # (Auto) 0.4, Eos # (Auto) 0.1, Baso # (Auto) 0.05, Absolute Neuts (auto) 5.01 I have reviewed the lab results: Yes - RAD Interpretation Narrative RAD Interpretations (Text): 04/17/19 17:50 CXR: FINDINGS: LUNGS: No active pulmonary disease. PLEURA: Stable elevation of the right hemidiaphragm. No significant pleural effusion identified, no pneumothorax apparent. CARDIOVASCULAR: No aortic atherosclerotic calcification present. Normal cardiac size. No pulmonary vascular congestion. OSSEOUS STRUCTURES: No significant abnormalities. VISUALIZED UPPER ABDOMEN: Normal. OTHER FINDINGS: None. IMPRESSION: No active disease. Head CT: FINDINGS: HEMORRHAGE: No intracranial hemorrhage. BRAIN: No mass effect or edema. No atrophy or chronic microvascular ischemic changes. VENTRICLES: Unremarkable. No hydrocephalus. CALVARIUM: Unremarkable. PARANASAL SINUSES: Unremarkable as visualized. No significant inflammatory changes. MASTOID AIR CELLS: Unremarkable as visualized. No inflammatory changes. OTHER FINDINGS: None. IMPRESSION: Normal CT of the Head. Balance Sheet Analyst: Radiologist - EKG Interpretation EKG Interpretation (Text): 04/17/19 16:30 Rate 85; NSR with PACs; Normal axis and intervals; No STEMI, nonspecific ST/T wave changes Interpreted by ED Physician: Yes Type: 12 lead EKG Disposition/Present on Arrival - Present on Arrival Any Indicators Present on Arrival: No History of DVT/PE: No History of Uncontrolled Diabetes: No Urinary Catheter: No History of Decub. Ulcer: No History Surgical Site Infection Following: None - Disposition Have Diagnosis and Disposition been Completed?: Yes Diagnosis: Syncope, Hypokalemia, Schizophrenia Disposition: HOSPITALIZED Disposition Time: 17:51 Patient Plan: Admission Patient Problems: Current Active Problems Problem Status Onset Hypokalemia Acute Syncope Acute Schizophrenia Chronic Condition: STABLE
[2019-04-17 15:59] LABS: BASO # 0.05 K/mm3 (0.0-2.0); BASO % 0.6 % (0.0-3.0); EOS # 0.1 (0.0-0.7); EOS % 1.8 % (1.5-5.0); HEMOGLOBIN 9.4 g/dL (12.0-16.0); LYMPH # 2.2 (1.2-3.4); MEAN CORPUSCULAR HEMOGLOBIN 21.9 pg (25.0-35.0); MEAN PLATELET VOLUME 9.2 fl (7.0-11.0); MONO # 0.4 (0.1-0.6); MONO % 4.8 % (1.0-6.0); RBC 4.29 10^6/uL (3.5-6.1); RED CELL DISTRIBUTION WIDTH 19.4 % (11.5-14.5); WHITE BLOOD COUNT 7.7 10^3/uL (4.5-11.0)
[2019-04-17 16:07] LABS: ACETAMINOPHEN < 10.0 ug/ml (10.0-20.0); SALICYLATE < 1 mg/dL (2.0-20.0)
[2019-04-17 16:08] LABS: ALB/GLOB RATIO 1.2 (1.1-1.8); ALBUMIN 3.9 g/dL (3.0-4.8); ALT/SGPT 33 U/L (7-56); AST/SGOT 35 U/L (14-36); BLOOD UREA NITROGEN 11 mg/dL (7-21); CALCIUM 9.2 mg/dL (8.4-10.5); GFR NON-AFRICAN AMERICAN > 60
[2019-04-17] MEDS ORDERED: Potassium Chloride 20 mEq ER Tab PO STA (16:10)
[2019-04-17 16:19] LABS: TROPONIN I < 0.01 ng/mL
[2019-04-17 17:18] LABS: URINE BILIRUBIN NEGATIVE (NEGATIVE); URINE BLOOD NEGATIVE (NEGATIVE); URINE GLUCOSE (UA) NEGATIVE (NEGATIVE); URINE LEUKOCYTE ESTERASE TRACE Leu/uL (NEGATIVE); URINE PROTEIN NEGATIVE mg/dL (<30 mg/dL); URINE UROBILINOGEN 0.2 E.U./dL (<1 E.U./dL)
[2019-04-17 17:19] LABS: URINE APPEARANCE SLIGHT-CLOUDY (CLEAR); URINE COLOR YELLOW (YELLOW)
[2019-04-17 17:32] LABS: URINE BACTERIA FEW /hpf; URINE RBC 0 - 2 /hpf (0-2)
[2019-04-17 17:34] LABS: HCG,QUALITATIVE URINE NEGATIVE (NEGATIVE)
--- NOTE | 2019-04-17 17:47 | RAD ---
Date of service: 04/17/2019 HISTORY: psych COMPARISON: Chest radiograph dated 03/10/2019. TECHNIQUE: 1 view obtained. FINDINGS: LUNGS: No active pulmonary disease. PLEURA: Stable elevation of the right hemidiaphragm. No significant pleural effusion identified, no pneumothorax apparent. CARDIOVASCULAR: No aortic atherosclerotic calcification present. Normal cardiac size. No pulmonary vascular congestion. OSSEOUS STRUCTURES: No significant abnormalities. VISUALIZED UPPER ABDOMEN: Normal. OTHER FINDINGS: None. IMPRESSION: No active disease.
--- NOTE | 2019-04-17 17:48 | CT ---
Date of service: 04/17/2019 PROCEDURE: CT HEAD WITHOUT CONTRAST. HISTORY: syncope COMPARISON: CT head dated 11/22/2018. TECHNIQUE: Axial computed tomography images were obtained through the head/brain without intravenous contrast. Radiation dose: Total exam DLP = 1715.9 mGy-cm. This CT exam was performed using one or more of the following dose reduction techniques: Automated exposure control, adjustment of the mA and/or kV according to patient size, and/or use of iterative reconstruction technique. FINDINGS: HEMORRHAGE: No intracranial hemorrhage. BRAIN: No mass effect or edema. No atrophy or chronic microvascular ischemic changes. VENTRICLES: Unremarkable. No hydrocephalus. CALVARIUM: Unremarkable. PARANASAL SINUSES: Unremarkable as visualized. No significant inflammatory changes. MASTOID AIR CELLS: Unremarkable as visualized. No inflammatory changes. OTHER FINDINGS: None. IMPRESSION: Normal CT of the Head.
[2019-04-17 17:49] LABS: BARBITURATES, UR NEGATIVE (NEGATIVE); BENZODIAZEPINES, UR NEGATIVE (NEGATIVE); OPIATES, UR NEGATIVE (NEGATIVE); PHENCYCLIDINE, UR NEGATIVE (NEGATIVE)
[2019-04-17 20:07] VITALS: BMI 37.2
[2019-04-18] MEDS: Pantoprazole 40 mg EC Tab PO SCH (06:15)
[2019-04-18 07:39] LABS: IRON 22 ug/dL (45-180)
[2019-04-18 07:48] LABS: % IRON SATURATION 6 % (20-55); TOTAL IRON BINDING CAPACITY 377 ug/dL (265-497)
[2019-04-18 07:53] LABS: ALB/GLOB RATIO 1.1 (1.1-1.8); ALBUMIN 3.4 g/dL (3.0-4.8); ALT/SGPT 31 U/L (7-56); AST/SGOT 34 U/L (14-36); BLOOD UREA NITROGEN 8 mg/dL (7-21); CALCIUM 8.7 mg/dL (8.4-10.5); GFR NON-AFRICAN AMERICAN > 60
[2019-04-18] MEDS: Venlafaxine 75 mg ER Cap PO SCH (09:23)
[2019-04-18] MEDS ORDERED: Potassium Chloride 20 mEq ER Tab PO SCH (09:30)
--- NOTE | 2019-04-18 10:08 | CP.PCM.CON ---
History of Present Illness - History of Present Illness History of Present Illness: Awake, alert, no distress Reason for consultation:Cardiac evaluation of syncope Brief history of present illness: A 48 year old female who was brought to the ER for syncope. She was found by family member on the floor. EMS was called and bought to the ER. She has not been taking her medications No psychiatric follow up. History of CVA, SVT, Anemia, COPD, and GERD schizophrenia, bipolar disorder, anxiety, depression, seizure disorder (on Keppra), CVA, SVT, Anemia, COPD, and GERD. Patient is poor historian. consult was called to evaluate for syncope. Seen and examined by me and Dr. Avelar Review of Systems - Review of Systems All systems: reviewed and no additional remarkable complaints except Review of Systems: as per HPI Past Patient History - Infectious Disease Hx of Infectious Diseases: None - Tetanus Immunizations Tetanus Immunization: Unknown - Past Social History Smoking Status: Heavy Smoker > 10 Cigarettes Daily - CARDIAC Hx Cardiac Disorders: Yes (SVT) - PULMONARY Hx Respiratory Disorders: Yes (SMOKES CIGARETTES) Hx Asthma: Yes Hx Bronchitis: Yes Hx Chronic Obstructive Pulmonary Disease (COPD): Yes Hx Sleep Apnea: Yes - NEUROLOGICAL Hx Neurological Disorder: Yes HX Cerebrovascular Accident: Yes (SOME SLURRY SPEECH) - HEENT Hx HEENT Problems: No - RENAL Hx Chronic Kidney Disease: No - ENDOCRINE/METABOLIC Hx Endocrine Disorders: No - HEMATOLOGICAL/ONCOLOGICAL Hx Blood Disorders: Yes Hx Anemia: Yes - INTEGUMENTARY Hx Dermatological Problems: No - MUSCULOSKELETAL/RHEUMATOLOGICAL Hx Falls: No - GASTROINTESTINAL Hx Gastrointestinal Disorders: Yes (BARIATRIC SX) - GENITOURINARY/GYNECOLOGICAL Hx Genitourinary Disorders: Yes Hx Urinary Tract Infection: Yes - PSYCHIATRIC Hx Psychophysiologic Disorder: Yes Hx Anxiety: Yes Hx Bipolar Disorder: Yes Hx Depression: Yes Hx Schizophrenia: Yes - SURGICAL HISTORY Hx Surgeries: Yes (BARIATRIC SX) Hx Cardiac Catheterization: No Hx Coronary Stent: No - ANESTHESIA Hx Anesthesia: No Hx Anesthesia Reactions: No Hx Malignant Hyperthermia: No Meds Allergies/Adverse Reactions: Allergies Allergy/AdvReac Type Severity Reaction Status Date / Time Penicillins Allergy ANAPHYLAXIS Verified 04/17/19 15:19 bee sting Allergy SWELLING Uncoded 04/17/19 15:19 - Medications Medications: Current Medications Amitriptyline HCl (Elavil) 75 mg PO HS [facility] Last Admin: 04/17/19 22:09 Dose: 75 mg Aripiprazole (Abilify) 10 mg PO BID [facility]; Protocol Last Admin: 04/18/19 09:23 Dose: 10 mg Atorvastatin Calcium (Lipitor) 10 mg PO DIN [facility] Last Admin: 04/17/19 22:09 Dose: 10 mg Clonazepam (Klonopin) 0.5 mg PO BID [facility]; Protocol Last Admin: 04/18/19 09:23 Dose: 0.5 mg Levetiracetam (Keppra) 500 mg PO BID [facility] Last Admin: 04/18/19 09:23 Dose: 500 mg Pantoprazole Sodium (Protonix Ec Tab) 40 mg PO 0600 [facility] Last Admin: 04/18/19 06:15 Dose: 40 mg Potassium Chloride (K-Dur 20 Meq Er Tab) 40 meq PO Q6H [facility] Stop: 04/18/19 15:31 Venlafaxine HCl (Effexor Xr) 150 mg PO DAILY [facility] Last Admin: 04/18/19 09:23 Dose: 150 mg Physical Exam - Constitutional Appears: Non-toxic, No Acute Distress - Head Exam Head Exam: NORMAL INSPECTION, NORMOCEPHALIC - Eye Exam Eye Exam: Normal appearance Pupil Exam: NORMAL ACCOMODATION - ENT Exam ENT Exam: Mucous Membranes Moist, Normal Exam - Neck Exam Neck exam: Positive for: Full Rom, Normal Inspection - Respiratory Exam Respiratory Exam: Decreased Breath Sounds, Clear to Auscultation Bilateral, NORMAL BREATHING PATTERN - Cardiovascular Exam Cardiovascular Exam: REGULAR RHYTHM, +S1, +S2 - GI/Abdominal Exam GI & Abdominal Exam: Normal Bowel Sounds, Soft - Extremities Exam Extremities exam: Positive for: full ROM, normal capillary refill - Neurological Exam Neurological exam: Alert, Oriented x3 - Psychiatric Exam Psychiatric exam: Normal Affect, Normal Mood - Skin Skin Exam: Dry, Normal Color, Warm Results - Vital Signs Recent Vital Signs: Last Vital Signs Temp 97.8 F 04/18/19 06:00 Pulse 91 H 04/18/19 06:00 Resp 20 04/18/19 06:00 BP 143/88 04/18/19 06:00 Pulse Ox 98 04/18/19 06:00 - Labs Result Diagrams: 04/17/19 15:33 04/18/19 06:30 Labs: Laboratory Results - last 24 hr 04/17/19 04/17/19 04/17/19 15:33 15:33 15:33 WBC 7.7 RBC 4.29 Hgb 9.4 L Hct 31.3 L MCV 73.0 L MCH 21.9 L MCHC 30.0 L RDW 19.4 H Plt Count 417 MPV 9.2 Neut % (Auto) 64.8 Lymph % (Auto) 28.0 [place] % (Auto) 4.8 Eos % (Auto) 1.8 Baso % (Auto) 0.6 Lymph # (Auto) 2.2 [place] # (Auto) 0.4 Eos # (Auto) 0.1 Baso # (Auto) 0.05 Absolute Neuts (auto) 5.01 Sodium 139 Potassium 3.2 L Chloride 103 Carbon Dioxide 27 Anion Gap 12 BUN 11 Creatinine 0.6 L Est GFR ( Amer) > 60 Est GFR (Non-Af Amer) > 60 Random Glucose 110 Calcium 9.2 Phosphorus Magnesium Iron TIBC % Saturation Total Bilirubin 0.4 AST 35 ALT 33 Alkaline Phosphatase 70 Troponin I < 0.01 Total Protein 7.3 Albumin 3.9 Globulin 3.3 Albumin/Globulin Ratio 1.2 Urine Color Urine Appearance Urine pH Ur Specific [place] Urine Protein Urine Glucose (UA) Urine Ketones Urine Blood Urine Nitrate Urine Bilirubin Urine Urobilinogen Ur Leukocyte Esterase Urine RBC Urine WBC Ur Epithelial Cells Urine Bacteria Urine HCG, Qual Salicylates < 1 L Urine Opiates Screen Urine Methadone Screen Acetaminophen < 10.0 L Ur Barbiturates Screen Ur Phencyclidine Scrn Ur Amphetamines Screen U Benzodiazepines Scrn U Oth Cocaine Metabols U Cannabinoids Screen Alcohol, Quantitative 04/17/19 04/17/19 04/17/19 15:33 16:56 16:56 WBC RBC Hgb Hct MCV MCH MCHC RDW Plt Count MPV Neut % (Auto) Lymph % (Auto) [place] % (Auto) Eos % (Auto) Baso % (Auto) Lymph # (Auto) [place] # (Auto) Eos # (Auto) Baso # (Auto) Absolute Neuts (auto) Sodium Potassium Chloride Carbon Dioxide Anion Gap BUN Creatinine Est GFR ( Amer) Est GFR (Non-Af Amer) Random Glucose Calcium Phosphorus Magnesium Iron TIBC % Saturation Total Bilirubin AST ALT Alkaline Phosphatase Troponin I Total Protein Albumin Globulin Albumin/Globulin Ratio Urine Color Yellow Urine Appearance Slight-cloudy Urine pH 6.0 Ur Specific [place] 1.015 Urine Protein Negative Urine Glucose (UA) Negative Urine Ketones Negative Urine Blood Negative Urine Nitrate Negative Urine Bilirubin Negative Urine Urobilinogen 0.2 Ur Leukocyte Esterase Trace H Urine RBC 0 - 2 Urine WBC 2 - 5 Ur Epithelial Cells 6 - 8 H Urine Bacteria Few Urine HCG, Qual Negative Salicylates Urine Opiates Screen Negative Urine Methadone Screen Negative Acetaminophen Ur Barbiturates Screen Negative Ur Phencyclidine Scrn Negative Ur Amphetamines Screen Negative U Benzodiazepines Scrn Negative U Oth Cocaine Metabols Negative U Cannabinoids Screen Negative Alcohol, Quantitative < 10 04/18/19 04/18/19 06:30 06:30 WBC RBC Hgb Hct MCV MCH MCHC RDW Plt Count MPV Neut % (Auto) Lymph % (Auto) [place] % (Auto) Eos % (Auto) Baso % (Auto) Lymph # (Auto) [place] # (Auto) Eos # (Auto) Baso # (Auto) Absolute Neuts (auto) Sodium 140 Potassium 3.5 L Chloride 104 Carbon Dioxide 30 Anion Gap 10 BUN 8 Creatinine 0.7 Est GFR ( Amer) > 60 Est GFR (Non-Af Amer) > 60 Random Glucose 91 Calcium 8.7 Phosphorus 3.9 Magnesium 2.2 Iron 22 L TIBC 377 % Saturation 6 L Total Bilirubin 0.5 AST 34 ALT 31 Alkaline Phosphatase 67 Troponin I Total Protein 6.5 Albumin 3.4 Globulin 3.1 Albumin/Globulin Ratio 1.1 Urine Color Urine Appearance Urine pH Ur Specific [place] Urine Protein Urine Glucose (UA) Urine Ketones Urine Blood Urine Nitrate Urine Bilirubin Urine Urobilinogen Ur Leukocyte Esterase Urine RBC Urine WBC Ur Epithelial Cells Urine Bacteria Urine HCG, Qual Salicylates Urine Opiates Screen Urine Methadone Screen Acetaminophen Ur Barbiturates Screen Ur Phencyclidine Scrn Ur Amphetamines Screen U Benzodiazepines Scrn U Oth Cocaine Metabols U Cannabinoids Screen Alcohol, Quantitative Assessment & Plan - Assessment and Plan (Free Text) Assessment: A 48 year old female who was brought to the ER for syncope. She was found by family member on the floor. EMS was called and bought to the ER. She has not been taking her medications No psychiatric follow up. History of CVA, SVT, Anemia, COPD, and GERD schizophrenia, bipolar disorder, anxiety, depression, seizure disorder (on Keppra), CVA, SVT,bronchitis, sleep apnea,anemia, COPD, and GERD, bariatric surgery, urinary tract infection, current smoker. Patient is poor historian. Chart reviewed . Multiple psychiatric admissions. Consult was called to evaluate for syncope. Had stress test on 03/24/17 and showed normal myocardial perfusion, LVEF 74%. Echo done on 03/24/17 and showed normal chambers, LVEF 65-70%,mild MR, trace Tr, RVSP 19 mmHg. This admission, Chest X ray normal results. CT of head no evidence of bleeding,unremarkable. EKG showed NSR with premature supraventricular complexes. Troponin normal. Admitted for syncope. Will order Orthostatic vital signs for orthostatic hypotension. Will order echo to evaluate LV function. Denies chest pain or shortness of breath. Low dose betablocker for history of SVT. Psych and Neuro on consult. Plan: No distress Denies chest pain Echo to evaluate LV function Orthostatic vital signs Heart rate stable Blood pressure controlled Low dose betablocker Continue current medications Continue current management Further recommendations during hospital course TSH, lipid panel and HgbA1C Smoking cessation Will follow up Plan and treatment discussed with Dr. Avelar Thank you Dr. Gil for the opportunity of taking care of Karen Rodrigo - Date & Time Date: 04/18/19 Time: 09:50
--- NOTE | 2019-04-18 10:47 | CP.PCM.HP ---
<Isaac Riley - Last Filed: 04/18/19 10:42> History of Present Illness - History of Present Illness History of Present Illness: Isaac Riley D.O. PGY-3, Internal Medicine Resident, Dr. Gil's Service, H&P CC: Syncope 48-year-old female with a past medical history of schizophrenia, hyperlipidemia, morbid obesity, anxiety, depression, anemia, seizure disorder who presents after she had a syncopal episode. Yesterday afternoon patient was with a friend and while they were in separate rooms somehow the patient ended up found on the ground. Most of the history is obtained from the ER documentation. Friend called 911 and she was told to start [id number]. Patient regained consciousness. Patient at this time states that she " and came back to life." Patient states that the "captain" wanted to kill her so that she could use her body but that she told that that she had to come back. At times patient has really pressured speech and is difficult to understand when she speaks. Patient admits that she has not been taking her medications since she was discharged on 03/25 from voluntary psychiatric unit and that she has not followed up with the mental health clinic as she was supposed to. At this time patient denies any fevers, chills, nausea, vomiting, diarrhea, constipation, lightheadedness, headache, dysuria, hematuria, or any other complaints at this time. PMH: As above SH: Denies alcohol, current smoker, denies drug use FH: Denies Medications: Reviewed with patient, has not been compliant with them Allergies: Penicillin Present on Admission - Present on Admission Any Indicators Present on Admission: No Review of Systems - Review of Systems All systems: reviewed and no additional remarkable complaints except (as per HPI) Past Patient History - Infectious Disease Hx of Infectious Diseases: None - Tetanus Immunizations Tetanus Immunization: Unknown - Past Social History Smoking Status: Heavy Smoker > 10 Cigarettes Daily - CARDIAC Hx Cardiac Disorders: Yes (SVT) - PULMONARY Hx Respiratory Disorders: Yes (SMOKES CIGARETTES) Hx Asthma: Yes Hx Bronchitis: Yes Hx Chronic Obstructive Pulmonary Disease (COPD): Yes Hx Sleep Apnea: Yes - NEUROLOGICAL Hx Neurological Disorder: Yes HX Cerebrovascular Accident: Yes (SOME SLURRY SPEECH) - HEENT Hx HEENT Problems: No - RENAL Hx Chronic Kidney Disease: No - ENDOCRINE/METABOLIC Hx Endocrine Disorders: No - HEMATOLOGICAL/ONCOLOGICAL Hx Blood Disorders: Yes Hx Anemia: Yes - INTEGUMENTARY Hx Dermatological Problems: No - MUSCULOSKELETAL/RHEUMATOLOGICAL Hx Falls: No - GASTROINTESTINAL Hx Gastrointestinal Disorders: Yes (BARIATRIC SX) - GENITOURINARY/GYNECOLOGICAL Hx Genitourinary Disorders: Yes Hx Urinary Tract Infection: Yes - PSYCHIATRIC Hx Psychophysiologic Disorder: Yes Hx Anxiety: Yes Hx Bipolar Disorder: Yes Hx Depression: Yes Hx Schizophrenia: Yes - SURGICAL HISTORY Hx Surgeries: Yes (BARIATRIC SX) Hx Cardiac Catheterization: No Hx Coronary Stent: No - ANESTHESIA Hx Anesthesia: No Hx Anesthesia Reactions: No Hx Malignant Hyperthermia: No Meds Allergies/Adverse Reactions: Allergies Allergy/AdvReac Type Severity Reaction Status Date / Time Penicillins Allergy ANAPHYLAXIS Verified 04/17/19 15:19 bee sting Allergy SWELLING Uncoded 04/17/19 15:19 Physical Exam - Constitutional Appears: Non-toxic, No Acute Distress - Head Exam Head Exam: ATRAUMATIC, NORMOCEPHALIC - Eye Exam Eye Exam: EOMI. absent: Scleral icterus - ENT Exam ENT Exam: Mucous Membranes Moist, Normal Oropharynx - Neck Exam Neck exam: Positive for: Normal Inspection - Respiratory Exam Respiratory Exam: Clear to Auscultation Bilateral. absent: Rales, Rhonchi, Wheezes - Cardiovascular Exam Cardiovascular Exam: RRR. absent: Gallop, Rubs, +S1, +S2 - GI/Abdominal Exam GI & Abdominal Exam: Normal Bowel Sounds, Soft. absent: Distended, Tenderness - Extremities Exam Extremities exam: Positive for: normal capillary refill. Negative for: calf tenderness, pedal edema - Neurological Exam Neurological exam: Alert, CN II-XII Intact, Oriented x3 - Psychiatric Exam Additional comments: tangential, pressured speech, delusions - Skin Skin Exam: Dry, Warm Results - Vital Signs Recent Vital Signs: Last Vital Signs Temp 97.8 F 04/18/19 06:00 Pulse 91 H 04/18/19 06:00 Resp 20 04/18/19 06:00 BP 143/88 04/18/19 06:00 Pulse Ox 98 04/18/19 06:00 - Labs Result Diagrams: 04/17/19 15:33 04/18/19 06:30 Labs: Laboratory Results - last 24 hr 04/17/19 04/17/19 04/17/19 15:33 15:33 15:33 WBC 7.7 RBC 4.29 Hgb 9.4 L Hct 31.3 L MCV 73.0 L MCH 21.9 L MCHC 30.0 L RDW 19.4 H Plt Count 417 MPV 9.2 Neut % (Auto) 64.8 Lymph % (Auto) 28.0 Peach % (Auto) 4.8 Eos % (Auto) 1.8 Baso % (Auto) 0.6 Lymph # (Auto) 2.2 Peach # (Auto) 0.4 Eos # (Auto) 0.1 Baso # (Auto) 0.05 Absolute Neuts (auto) 5.01 Sodium 139 Potassium 3.2 L Chloride 103 Carbon Dioxide 27 Anion Gap 12 BUN 11 Creatinine 0.6 L Est GFR ( Amer) > 60 Est GFR (Non-Af Amer) > 60 Random Glucose 110 Calcium 9.2 Phosphorus Magnesium Iron TIBC % Saturation Total Bilirubin 0.4 AST 35 ALT 33 Alkaline Phosphatase 70 Troponin I < 0.01 Total Protein 7.3 Albumin 3.9 Globulin 3.3 Albumin/Globulin Ratio 1.2 Urine Color Urine Appearance Urine pH Ur Specific Gabbs Urine Protein Urine Glucose (UA) Urine Ketones Urine Blood Urine Nitrate Urine Bilirubin Urine Urobilinogen Ur Leukocyte Esterase Urine RBC Urine WBC Ur Epithelial Cells Urine Bacteria Urine HCG, Qual Salicylates < 1 L Urine Opiates Screen Urine Methadone Screen Acetaminophen < 10.0 L Ur Barbiturates Screen Ur Phencyclidine Scrn Ur Amphetamines Screen U Benzodiazepines Scrn U Oth Cocaine Metabols U Cannabinoids Screen Alcohol, Quantitative 04/17/19 04/17/19 04/17/19 15:33 16:56 16:56 WBC RBC Hgb Hct MCV MCH MCHC RDW Plt Count MPV Neut % (Auto) Lymph % (Auto) Peach % (Auto) Eos % (Auto) Baso % (Auto) Lymph # (Auto) Peach # (Auto) Eos # (Auto) Baso # (Auto) Absolute Neuts (auto) Sodium Potassium Chloride Carbon Dioxide Anion Gap BUN Creatinine Est GFR ( Amer) Est GFR (Non-Af Amer) Random Glucose Calcium Phosphorus Magnesium Iron TIBC % Saturation Total Bilirubin AST ALT Alkaline Phosphatase Troponin I Total Protein Albumin Globulin Albumin/Globulin Ratio Urine Color Yellow Urine Appearance Slight-cloudy Urine pH 6.0 Ur Specific Gabbs 1.015 Urine Protein Negative Urine Glucose (UA) Negative Urine Ketones Negative Urine Blood Negative Urine Nitrate Negative Urine Bilirubin Negative Urine Urobilinogen 0.2 Ur Leukocyte Esterase Trace H Urine RBC 0 - 2 Urine WBC 2 - 5 Ur Epithelial Cells 6 - 8 H Urine Bacteria Few Urine HCG, Qual Negative Salicylates Urine Opiates Screen Negative Urine Methadone Screen Negative Acetaminophen Ur Barbiturates Screen Negative Ur Phencyclidine Scrn Negative Ur Amphetamines Screen Negative U Benzodiazepines Scrn Negative U Oth Cocaine Metabols Negative U Cannabinoids Screen Negative Alcohol, Quantitative < 10 04/18/19 04/18/19 06:30 06:30 WBC RBC Hgb Hct MCV MCH MCHC RDW Plt Count MPV Neut % (Auto) Lymph % (Auto) Peach % (Auto) Eos % (Auto) Baso % (Auto) Lymph # (Auto) Peach # (Auto) Eos # (Auto) Baso # (Auto) Absolute Neuts (auto) Sodium 140 Potassium 3.5 L Chloride 104 Carbon Dioxide 30 Anion Gap 10 BUN 8 Creatinine 0.7 Est GFR ( Amer) > 60 Est GFR (Non-Af Amer) > 60 Random Glucose 91 Calcium 8.7 Phosphorus 3.9 Magnesium 2.2 Iron 22 L TIBC 377 % Saturation 6 L Total Bilirubin 0.5 AST 34 ALT 31 Alkaline Phosphatase 67 Troponin I Total Protein 6.5 Albumin 3.4 Globulin 3.1 Albumin/Globulin Ratio 1.1 Urine Color Urine Appearance Urine pH Ur Specific Gabbs Urine Protein Urine Glucose (UA) Urine Ketones Urine Blood Urine Nitrate Urine Bilirubin Urine Urobilinogen Ur Leukocyte Esterase Urine RBC Urine WBC Ur Epithelial Cells Urine Bacteria Urine HCG, Qual Salicylates Urine Opiates Screen Urine Methadone Screen Acetaminophen Ur Barbiturates Screen Ur Phencyclidine Scrn Ur Amphetamines Screen U Benzodiazepines Scrn U Oth Cocaine Metabols U Cannabinoids Screen Alcohol, Quantitative Assessment & Plan - Assessment and Plan (Free Text) Assessment: 48-year-old female with a past medical history of schizophrenia, hyperlipidemia, morbid obesity, anxiety, depression, anemia, seizure disorder who presents after she had a syncopal episode. Plan: 1. Syncopal episode 2. Seizure disorder 3. Schizophrenia 4. Microcytic hypochromic anemia 5. Hyperlipidemia 6. Diabetes mellitus 7. Hypokalemia 8. GERD 9. Morbid obesity Etiology of her syncopal episode to be investigated. Possibility for seizure related causes as the patient has been noncompliant with her medications. We will obtain a neuro and cardio consult as arrhythmias and other cardiac etiologies are also possible. Troponin was drawn and was negative. EKG did not reveal any new abnormalities when compared to the EKG from 03/10/2019. Chest x- ray showed no active disease. Head CT was also normal. She will be continued back on her home amitriptyline, aripiprazole, clonazepam and venlafaxine for her schizophrenia. Consultation with psychiatry has been placed. For history of seizure disorder she will be continued back on her home Keppra. Keppra level was ordered in the emergency room and is pending. Seizure precautions in place. For her anemia will be will be checking iron studies and hemoglobin electrop horesis given the low MCV. For her hyperlipidemia she is on her home atorvastatin. Patient last hemoglobin A1c of 6.7 on 03/11/2019, for this and her morbid obesity we will recommend lifestyle modifications and outpatient follow- up to the patient once her psychiatric status is improved and patient is more receptive. Her hypokalemia has been repleted. Currently having no issues with GERD. We will continue to monitor the patient closely and follow-up with consultants. Patient was seen and examined and case was discussed at length with attending physician. - Date & Time Date: 04/18/19 Time: 07:00 <Isaias Gil S - Last Filed: 04/18/19 15:36> Results - Vital Signs Recent Vital Signs: Last Vital Signs Temp 98.3 F 04/18/19 11:36 Pulse 86 04/18/19 11:36 Resp 20 04/18/19 11:36 BP 99/63 L 04/18/19 11:36 Pulse Ox 98 04/18/19 06:00 - Labs Result Diagrams: 04/17/19 15:33 04/18/19 06:30 Labs: Laboratory Results - last 24 hr 04/17/19 04/17/19 04/17/19 15:33 15:33 15:33 WBC 7.7 RBC 4.29 Hgb 9.4 L Hct 31.3 L MCV 73.0 L MCH 21.9 L MCHC 30.0 L RDW 19.4 H Plt Count 417 MPV 9.2 Neut % (Auto) 64.8 Lymph % (Auto) 28.0 Peach % (Auto) 4.8 Eos % (Auto) 1.8 Baso % (Auto) 0.6 Lymph # (Auto) 2.2 Peach # (Auto) 0.4 Eos # (Auto) 0.1 Baso # (Auto) 0.05 Absolute Neuts (auto) 5.01 Sodium 139 Potassium 3.2 L Chloride 103 Carbon Dioxide 27 Anion Gap 12 BUN 11 Creatinine 0.6 L Est GFR ( Amer) > 60 Est GFR (Non-Af Amer) > 60 Random Glucose 110 Calcium 9.2 Phosphorus Magnesium Iron TIBC % Saturation Ferritin Total Bilirubin 0.4 AST 35 ALT 33 Alkaline Phosphatase 70 Troponin I < 0.01 Total Protein 7.3 Albumin 3.9 Globulin 3.3 Albumin/Globulin Ratio 1.2 Urine Color Urine Appearance Urine pH Ur Specific Gabbs Urine Protein Urine Glucose (UA) Urine Ketones Urine Blood Urine Nitrate Urine Bilirubin Urine Urobilinogen Ur Leukocyte Esterase Urine RBC Urine WBC Ur Epithelial Cells Urine Bacteria Urine HCG, Qual Salicylates < 1 L Urine Opiates Screen Urine Methadone Screen Acetaminophen < 10.0 L Ur Barbiturates Screen Ur Phencyclidine Scrn Ur Amphetamines Screen U Benzodiazepines Scrn U Oth Cocaine Metabols U Cannabinoids Screen Alcohol, Quantitative 04/17/19 04/17/19 04/17/19 15:33 16:56 16:56 WBC RBC Hgb Hct MCV MCH MCHC RDW Plt Count MPV Neut % (Auto) Lymph % (Auto) Peach % (Auto) Eos % (Auto) Baso % (Auto) Lymph # (Auto) Peach # (Auto) Eos # (Auto) Baso # (Auto) Absolute Neuts (auto) Sodium Potassium Chloride Carbon Dioxide Anion Gap BUN Creatinine Est GFR ( Amer) Est GFR (Non-Af Amer) Random Glucose Calcium Phosphorus Magnesium Iron TIBC % Saturation Ferritin Total Bilirubin AST ALT Alkaline Phosphatase Troponin I Total Protein Albumin Globulin Albumin/Globulin Ratio Urine Color Yellow Urine Appearance Slight-cloudy Urine pH 6.0 Ur Specific Gabbs 1.015 Urine Protein Negative Urine Glucose (UA) Negative Urine Ketones Negative Urine Blood Negative Urine Nitrate Negative Urine Bilirubin Negative Urine Urobilinogen 0.2 Ur Leukocyte Esterase Trace H Urine RBC 0 - 2 Urine WBC 2 - 5 Ur Epithelial Cells 6 - 8 H Urine Bacteria Few Urine HCG, Qual Negative Salicylates Urine Opiates Screen Negative Urine Methadone Screen Negative Acetaminophen Ur Barbiturates Screen Negative Ur Phencyclidine Scrn Negative Ur Amphetamines Screen Negative U Benzodiazepines Scrn Negative U Oth Cocaine Metabols Negative U Cannabinoids Screen Negative Alcohol, Quantitative < 10 04/18/19 04/18/19 06:30 06:30 WBC RBC Hgb Hct MCV MCH MCHC RDW Plt Count MPV Neut % (Auto) Lymph % (Auto) Peach % (Auto) Eos % (Auto) Baso % (Auto) Lymph # (Auto) Peach # (Auto) Eos # (Auto) Baso # (Auto) Absolute Neuts (auto) Sodium 140 Potassium 3.5 L Chloride 104 Carbon Dioxide 30 Anion Gap 10 BUN 8 Creatinine 0.7 Est GFR ( Amer) > 60 Est GFR (Non-Af Amer) > 60 Random Glucose 91 Calcium 8.7 Phosphorus 3.9 Magnesium 2.2 Iron 22 L TIBC 377 % Saturation 6 L Ferritin 6.3 Total Bilirubin 0.5 AST 34 ALT 31 Alkaline Phosphatase 67 Troponin I Total Protein 6.5 Albumin 3.4 Globulin 3.1 Albumin/Globulin Ratio 1.1 Urine Color Urine Appearance Urine pH Ur Specific Gabbs Urine Protein Urine Glucose (UA) Urine Ketones Urine Blood Urine Nitrate Urine Bilirubin Urine Urobilinogen Ur Leukocyte Esterase Urine RBC Urine WBC Ur Epithelial Cells Urine Bacteria Urine HCG, Qual Salicylates Urine Opiates Screen Urine Methadone Screen Acetaminophen Ur Barbiturates Screen Ur Phencyclidine Scrn Ur Amphetamines Screen U Benzodiazepines Scrn U Oth Cocaine Metabols U Cannabinoids Screen Alcohol, Quantitative Assessment & Plan - Assessment and Plan (Free Text) Plan: Pt seen and examined by me. I have reviewed the note of the medical collector and I agree with it. I have discussed the assessment and plan with the resident. I have reviewed the medications and the last labs.
--- NOTE | 2019-04-18 11:26 | CARD ---
APPROVED REPORT Date of service: 04/17/2019 EKG Measurement Heart [id number] <Conclusion> Sinus rhythm with premature supraventricular complexes ST abnormality, possible digitalis effect Abnormal ECG
[2019-04-18] MEDS: Potassium Chloride 40 mEq/30 ml LIQ UD PO SCH ×2 (12:20→12:25)
[2019-04-18 12:52] LABS: FERRITIN 6.3 ng/mL
--- NOTE | 2019-04-18 17:00 | HP ---
DATE OF EXAM: 04/18/2019 HISTORY OF PRESENT ILLNESS: The patient was seen and examined. I do agree with the note of the medical officer. The patient was admitted to the hospital because of syncopal episode. She has a history of schizophrenia, dyslipidemia and depression. The patient was brought in by a friend and was found to be on the ground. The patient says that she had and come back to life. She was having disorganized thoughts in the emergency room according to the ER staff. She was seen by Mental Health and was discharged recently from the psychiatric unit on 03/25/2019. She had a CAT scan of the head that was normal. She had a syncopal episode and she is improved from this. She has schizophrenia and is going to be seen by Psychiatry. The patient has dyslipidemia. She is on Keppra for seizures. She is on multiple psychiatric medications like amitriptyline, aripiprazole, and clonazepam as well as venlafaxine for schizophrenia. She had hypokalemia had her potassium replaced. She has obesity with a BMI of 41. The patient is going to be seen by Neurology as well as Cardiology for evaluation. She is currently on telemetry monitoring. She had blood work that was done and that was reviewed. She is on Lipitor for dyslipidemia. She has an echo that has been ordered. She is on a regular diet. She had troponins, which initially were negative in the emergency room. She had iron saturation of 6% with a ferritin of 6.3. She has severe iron deficiency. I will place her on oral iron therapy. ASSESSMENT: Iron-deficiency anemia. Isaias Gil MD
[2019-04-18] MEDS: Iron Complex Polysacch 150mg Cap PO SCH (17:31)
--- NOTE | 2019-04-18 21:21 | CON ---
DATE: 04/18/2019 HISTORY OF PRESENT ILLNESS: The patient is a 48-year-old female with a psychiatric history of schizoaffective disorder, likely prior admissions, but I see her recent psychiatric admission. She was in the psychiatric unit from 03/17/2019 to 03/25/2019. The patient has been noncompliant with discharge medications of Elavil 75 mg at bedtime, Abilify 10 mg b.i.d., Klonopin 0.5 mg a day, and Effexor XR 150 mg daily who presented to the ER with a family member (per ER report) for evaluation of syncope. According to the ER, this morning, the patient was found lying on the floor by the family member, but unable to gain consciousness. The EMS noted that when they came to the house to pick her up, she was ranting about her. The patient reportedly indicated she has not been taking medications or followed up with psychiatric care after she was discharged from the psychiatric unit on 03/25/2019. Psychiatry was consulted due to her known psychiatric history of bipolar I. There are familiar medications due to her prior hospitalization as well as consultations on the medical floor. The patient does appear more disorganized and paranoid and delusional during this presentation than my prior encounters with her. She appears to recognize me. However, she does not know my name. She begins ranting about her role as a "world ruler" and that she was in a fight with an enemy that "took all her light" and caused her to "literally drop ." That is the patient's impression of the circumstances that let her current presentation. So currently delusional, grandiose, bizarre, although she is aware that she is at [facility] and that it is currently 03/2019. She also does indicate that she got to her to this provider and others because she was unable to verify the existence of during her psychiatric hospitalization. She also indicates that some of her psychiatric medications contradicted in EMS report, and this provider however thought the patient has not been compliant with her psychiatric medications due to her disorganized presentation at this time. Thus far, she appears to be superficially cooperative and there have been no major behavioral issues and she is going to take the psychiatric medications when I suggest to continue same on the unit. However, she is reluctant to sign in voluntarily to the psychiatric floor again. The patient superficially presents well as she is hiding her psychosis after she had a few doses of her antipsychotics and it definitely warrants further observation psychiatrically after medical clearance. PAST PSYCHIATRIC HISTORY: As noted, the patient was psychiatrically hospitalized from 03/17/2019 to 03/25/2019. She was discharge on medications including Klonopin 0.5 mg b.i.d., Effexor XR 150 mg daily, Elavil 75 mg at bedtime, Ability 10 mg b.i.d. and likely noncompliant so the patient now was referred for psychiatric hospitalization. However, I highly doubt it. The patient has not been compliant with discharge medications or followup treatment. The patient was evaluated by [facility] while she was medically treated from 03/10/2019 to 03/13/2019. However, the physician did not feel she met criteria for involuntary commitment at that time. SOCIAL HISTORY: The patient reports that she is to an individual named Dayan Capone. However, the medical team does not confirm this individual. RELEVANT PSYCHIATRIC MEDICATIONS: Started on the medical floor include Elavil 75 mg at bedtime, Ability 10 mg p.o. b.i.d., Klonopin 0.5 mg b.i.d., and Effexor XR 150 mg daily. IMPRESSION: Schizoaffective disorder, the patient is currently disorganized and delusional. To rule out contributions of delirium, adding morphine to her current presentation. The patient is now psychiatrically cleared. RECOMMENDATIONS: We will continue current psychiatric medications. Psychiatry will follow the patient on daily basis to monitor her progress and stability. The next followup will be on 04/19/2019, by Dr. Baptiste. Thaddeus Dhaliwal MD
[2019-04-19] MEDS: Pantoprazole 40 mg EC Tab PO SCH (06:05)
[2019-04-19 06:53] LABS: BASO # 0.04 K/mm3 (0.0-2.0); BASO % 0.9 % (0.0-3.0); EOS # 0.2 (0.0-0.7); EOS % 5.1 % (1.5-5.0); HEMOGLOBIN 8.6 g/dL (12.0-16.0); LYMPH # 1.6 (1.2-3.4); LYMPH % 36.1 % (22.0-35.0); MEAN CELL VOLUME 74.2 fl (80.0-105.0); MEAN CORPUSCULAR HGB CONC 29.7 g/dl (31.0-37.0); MEAN PLATELET VOLUME 9.3 fl (7.0-11.0); MONO # 0.3 (0.1-0.6); MONO % 5.6 % (1.0-6.0); RBC 3.91 10^6/uL (3.5-6.1); RED CELL DISTRIBUTION WIDTH 19.6 % (11.5-14.5); WHITE BLOOD COUNT 4.5 10^3/uL (4.5-11.0)
[2019-04-19 07:00] VITALS: PULSE 71; O2SAT 93
[2019-04-19 07:08] LABS: LDL CHOLESTEROL 46 mg/dL (0-129)
--- NOTE | 2019-04-19 07:12 | CP.PCM.PN ---
Subjective - Date & Time of Evaluation Date of Evaluation: 04/19/19 Time of Evaluation: 06:20 - Subjective Subjective: Awake, alert, no distress Reason for consultation and follow up: Cardiac evaluation of syncope, history of History of CVA, SVT, Anemia, COPD, and GERD schizophrenia, bipolar disorder, anxiety, depression, seizure disorder Seen and examined by me and Dr. Avelar Objective - Vital Signs/Intake and Output Vital Signs (last 24 hours): Temp Pulse Resp BP Pulse Ox 98.0 F 71 21 113/66 93 L 04/19/19 06:00 04/19/19 06:00 04/19/19 06:00 04/19/19 06:00 04/19/19 06:00 Intake and Output: 04/19/19 04/19/19 06:59 18:59 Intake Total 560 Output Total 1 Balance 559 - Medications Medications: Current Medications Amitriptyline HCl (Elavil) 75 mg PO HS [facility] Last Admin: 04/18/19 22:00 Dose: 75 mg Aripiprazole (Abilify) 10 mg PO BID [facility]; Protocol Last Admin: 04/18/19 17:31 Dose: 10 mg Atorvastatin Calcium (Lipitor) 10 mg PO DIN [facility] Last Admin: 04/18/19 17:31 Dose: 10 mg Clonazepam (Klonopin) 0.5 mg PO BID [facility]; Protocol Last Admin: 04/18/19 17:31 Dose: 0.5 mg Levetiracetam (Keppra) 500 mg PO BID [facility] Last Admin: 04/18/19 17:31 Dose: 500 mg Metoprolol Tartrate (Lopressor) 25 mg PO BID [facility] Last Admin: 04/18/19 17:32 Dose: 25 mg Pantoprazole Sodium (Protonix Ec Tab) 40 mg PO 0600 [facility] Last Admin: 04/19/19 06:05 Dose: 40 mg Polysaccharide Iron Complex (Ferrex-150) 150 mg PO DAILY [facility] Last Admin: 04/18/19 17:31 Dose: 150 mg Venlafaxine HCl (Effexor Xr) 150 mg PO DAILY [facility] Last Admin: 04/18/19 09:23 Dose: 150 mg - Labs Labs: 04/17/19 15:33 - Constitutional Appears: Non-toxic, No Acute Distress - Head Exam Head Exam: NORMAL INSPECTION, NORMOCEPHALIC - Eye Exam Eye Exam: Normal appearance Pupil Exam: NORMAL ACCOMODATION - ENT Exam ENT Exam: Mucous Membranes Moist, Normal Exam - Respiratory Exam Respiratory Exam: Decreased Breath Sounds, Clear to Ausculation Bilateral, NORMAL BREATHING PATTERN - Cardiovascular Exam Cardiovascular Exam: REGULAR RHYTHM, +S1, +S2 - GI/Abdominal Exam GI & Abdominal Exam: Soft, Normal Bowel Sounds - Extremities Exam Extremities Exam: Full ROM, Normal Capillary Refill - Neurological Exam Neurological Exam: Alert, Awake, Oriented x3 - Psychiatric Exam Psychiatric exam: Normal Affect, Normal Mood - Skin Skin Exam: Dry, Normal Color, Warm Assessment and Plan - Assessment and Plan (Free Text) Assessment: A 48 year old female who was brought to the ER for syncope. She was found by family member on the floor. EMS was called and bought to the ER. She has not been taking her medications No psychiatric follow up. History of CVA, SVT, Anemia, COPD, and GERD schizophrenia, bipolar disorder, anxiety, depression, seizure disorder (on Keppra), CVA, SVT,bronchitis, sleep apnea,anemia, COPD, and GERD, bariatric surgery, urinary tract infection, current smoker. Patient is poor historian. Chart reviewed . Multiple psychiatric admissions. Consult was called to evaluate for syncope. Had stress test on 03/24/17 and showed normal myocardial perfusion, LVEF 74%. Echo done on 03/24/17 and showed normal chambers, LVEF 65-70%,mild MR, trace Tr, RVSP 19 mmHg. This admission, Chest X ray normal results. CT of head no evidence of bleeding,unremarkable. EKG showed NSR with premature supraventricular complexes. Troponin normal. Admitted for syncope. Denies chest pain or shortness of breath. Orthostatic vital signs for orthostatic hypotension. Psych and Neuro on consult. For echo today to evaluate LV function. Plan: For echo to evaluate LV function Orthostatic vital signs No distress Denies chest pain Heart rate stable Blood pressure controlled On Lopressor 25 mg BID, Lipitor 10 mg daily Continue current medications Continue current management Smoking cessation Neuro and Psych on consult Will follow up Plan and treatment discussed with Dr. Avelar
[2019-04-19 07:13] LABS: ALB/GLOB RATIO 1.1 (1.1-1.8); ALBUMIN 3.2 g/dL (3.0-4.8); ALT/SGPT 27 U/L (7-56); AST/SGOT 23 U/L (14-36); BLOOD UREA NITROGEN 8 mg/dL (7-21); CALCIUM 8.4 mg/dL (8.4-10.5); GFR NON-AFRICAN AMERICAN > 60; HDL CHOLESTEROL 28 mg/dL (29-60)
[2019-04-19] MEDS: Venlafaxine 75 mg ER Cap PO SCH (09:47)
[2019-04-19] MEDS: Potassium Chloride 20 mEq ER Tab PO ONE ×2 (09:47→09:55)
[2019-04-19] MEDS: Iron Complex Polysacch 150mg Cap PO SCH (09:48)
[2019-04-19 10:28] LABS: MCH 22.2 pg (27.0-33.0); MCV 74.2 fL (80.0-100.0)
[2019-04-19 12:00] VITALS: BP 106/71; RESP 18; TEMP 98.2
--- NOTE | 2019-04-19 13:33 | CP.PCM.PCO ---
Physician Communication Note - Physician Communication Note Physician Communication Note: neurocardiogenic synope , needs adjusmtnet of psych meds with psych.
--- NOTE | 2019-04-19 16:33 | CON ---
DATE: 04/19/2019 HISTORY OF PRESENT ILLNESS: This is a 48-year-old female, with the past medical history of anxiety, depression, seizure disorder, schizophrenia, and hyperlipidemia, came to the hospital after having a syncopal episode. The patient was found on the ground and brought to the hospital and called to evaluate the patient. PAST MEDICAL HISTORY: As above. SOCIAL HISTORY: Does not smoke; does not drink. ALLERGY: ALLERGIC TO PENICILLIN. PHYSICAL EXAMINATION: VITAL SIGNS: Blood pressure 143/88. HEENT: Normocephalic and atraumatic. NECK: Supple. NEUROLOGIC: Alert, awake, and oriented x3. No aphasia. Cranial nerves II through XII are tested. Pupil reactive. EOM intact. Visual field full. No facial asymmetry. Tongue midline. MOTOR: Moves all the extremities equally. Tone normal. Deep tendon reflexes 1+. Both plantars are downgoing. Sensory appears intact. Cerebellar gait deferred. LABORATORY DATA: WBCs 7.7, hemoglobin 9.4, hematocrit 31.3, and platelet 417. Sodium 140, potassium 3.5, chloride 104, CO2 of 30, glucose 91, BUN 8, and creatinine 0.7. CAT scan of the head was negative. IMPRESSION: Syncope, less likely seizure. PLAN: The patient is doing well now, and workup in progress. Continue present management. We will follow up. Stevo Wells MD
--- NOTE | 2019-04-19 18:39 | CARD ---
APPROVED REPORT Date of service: 04/19/2019 EXAM: Two-dimensional and M-mode echocardiogram with Doppler and color Doppler. INDICATION LV Function:SystolicDiastolic 2D DIMENSIONS Left Atrium (2D)3.7 (1.6-4.0cm)IVSd1.0 (0.7-1.1cm) LVDd4.4 (3.9-5.9cm)PWd1.0 (0.7-1.1cm) LVDs2.9 (2.5-4.0cm)FS (%) 35.1 % LVEF (%)64.6 (>50%) M-Mode DIMENSIONS Aortic Root3.00 (2.2-3.7cm)Aortic Cusp Exc.1.90 (1.5-2.0cm) Aortic Valve AoV Peak Bndhugbs430.0cm/Irina Peak GR.6mmHg Mitral Valve MV E Peoiojsr772.0cm/sMV A Qxkxqtnn24.4cm/sE/A ratio1.5 TDI E/Lateral E'0.0E/Medial E'0.0 Tricuspid Valve TR Peak Zszsjajk054rm/sRAP [id number] Peak Gr.16mmHg [id number] LEFT VENTRICLE The left ventricle is normal size. There is normal left ventricular wall thickness. The left ventricular function is normal.EF-60-65% There is normal LV segmental wall motion. The left ventricular diastolic function is normal. No left ventricle thrombus noted on this study. There is no ventricular septal defect visualized. There is no left ventricular aneurysm. There is no mass noted in the left ventricle. RIGHT VENTRICLE The right ventricle is normal size. There is normal right ventricular wall thickness. The right ventricular systolic function is normal. ATRIA The left atrium size is normal. The right atrium size is normal. The interatrial septum is intact with no evidence for an atrial septal defect. AORTIC VALVE The aortic valve is thickened but opens well. There is trace aortic regurgitation. There is no aortic valvular stenosis. There is no aortic valvular vegetation. MITRAL VALVE The mitral valve is thickened but opens well. Mitral regurgitation is mild to moderate. There is no mitral valve stenosis. There is no evidence of mitral valve prolapse. TRICUSPID VALVE The tricuspid valve leaflets are thickened , but open well. There is trace to mild tricuspid regurgitation.RVSP-26 mmof hg. There is no tricuspid valve stenosis. There is no tricuspid valve prolapse or vegetation. PULMONIC VALVE The pulmonary valve is normal in structure. There is no pulmonic valvular regurgitation. There is no pulmonic valvular stenosis. GREAT VESSELS The aortic root is normal in size. The ascending aorta is normal in size. The pulmonary artery is normal. The IVC is normal in size and collapses >50% with inspiration. PERICARDIAL EFFUSION There is no pleural effusion. There is no pericardial effusion. <Conclusion> Normal chamber size. EF-60-65% There is trace aortic regurgitation. Mitral regurgitation is mild to moderate. There is trace to mild tricuspid regurgitation.RVSP-26 mmof hg. The IVC is normal in size and collapses >50% with inspiration. There is no pericardial effusion. No vegetation or thrombus noted.
--- NOTE | 2019-04-20 02:42 | DS ---
HISTORY OF PRESENT ILLNESS: The patient is a 48-year-old, who came to emergency room because of syncope that she had yesterday. She had syncope, friend called ambulance and she was brought to emergency room for further evaluation, so far workup is negative. CT scan of the head is negative. The patient was seen and examined. so far cardiac workup and neuro workup is unremarkable. The patient seem to be delusional. She state her whole family were murdered in front of her, then she was taken up and she saw her intestine coming out. She was taken up and when she saw the elder, she started to feel different and little better and now she feels okay. In my opinion, the patient still seems to be having delusions, need to be admitted in psych. PHYSICAL EXAMINATION: GENERAL: On examination, otherwise she is sitting in chair, eating and tolerating. VITAL SIGNS: She is afebrile. Pulse 71, respirations 18 and blood pressure 106/71. LUNGS: Bilateral fair airflow. No rhonchi or crackle. HEART: S1 and S2 audible. ABDOMEN: Soft, obese and nontender. No rebound. No guarding. NEUROLOGICAL: The patient is awake and alert, able to communicate. LABORATORY DATA: WBC 4.5, hemoglobin 8.6, hematocrit 29 and platelets 339. Chemistry; sodium 136, potassium 3.6, chloride 105, CO2 of 24, BUN 8, creatinine 0.6 and blood sugar of 74. Urine tox is negative. ASSESSMENT: 1. Status post syncope. 2. History of paranoid schizophrenia. 3. History of hyperlipidemia. 4. Gastritis. 5. History of cerebrovascular accident in the past. 6. Chronic anemia. 7. Chronic obstructive pulmonary disease. 8. History of bipolar disorder. 9. History of seizure disorder on Keppra. 10. History of sleep apnea. PLAN: At this point, the patient is stable from Cardiology. Neuro point to view, she need to be admitted in psych for her adjustment of psych medications. Simi Owens MD
[2019-04-20 06:57] LABS: HEMOGLOBIN A 96.8 Percent (>96.0); HEMOGLOBIN A2 2.2 Percent (1.8-3.5)
--- NOTE | 2019-04-20 08:15 | PN ---
DATE: 04/19/2019 SUBJECTIVE: The patient is 48-year-old female with reported history of schizophrenia. The patient has multiple psychiatric admissions including into this facility. The patient was admitted here in 02/2019. The patient had polypharmacy and a lot of changes took place with the patient's medications. This time, the patient was brought in for evaluation of syncopal episode. Psych consult was called for evaluation of medication. The patient seems to be noncompliant with the medications as well as presented to be psychotic and disorganized. The patient was seen by Dr. Dhaliwal over the weekend. This documentation writer is taking over. This documentation writer is very familiar with this patient from the previous admission. The patient presented to be angry disorganized and restless. The patient said that she was killed by devil meaning when she had syncopal episode, the patient said that she survives and right now she is taking over the whole world. The patient was screaming that she is not crazy and the patient refused to be admitted to the psychiatric inpatient unit initially, but the patient agreed to sign into the psychiatric inpatient unit only because she does not want to be screened by [facility] for involuntary commitment. Collaterals were obtained from the patient's girlfriend and roommate, Elise Bonilla, which is next to the patient, phone number is [phone]. As per Elise, the patient was not taking her medication for past 3 weeks and the patient presented to be disorganized, talking to the people who are not there, religiously preoccupied and agitated. PHYSICAL EXAMINATION: VITAL SIGNS: Reviewed. Temperature 98.2, pulse 71, blood pressure 106/71, respirations 18, oxygen saturation is 93. MEDICATIONS: Reviewed. The patient is on amitriptyline 75 mg, Abilify 10 mg twice a day, Lipitor, Klonopin 0.5 mg twice a day, Keppra, Lopressor, Protonix, Ferrex and Effexor. LABORATORY DATA: Reviewed. Most recent was from today. Chemistry reviewed. Urinalysis reviewed. Toxicology reviewed. MENTAL STATUS EXAM: As this documentation writer described above, the patient presented to be agitated, restless and disorganized. Mood described "I'm not crazy". Affect was flat. Thought process circumstantial, tangential and disorganized. Thought content, the patient presented to be disorganized, psychotic, religiously preoccupied, responding to internal stimuli, asking God questions in front of this documentation writer. Insight and judgment seems to be very limited. Impulses are unpredictable. IMPRESSION: The patient has history of schizoaffective disorder versus schizophrenia. PLAN: The patient is willing to sign herself into the psychiatric inpatient unit. The patient will be continued on medication. Elavil will be tapered down. Effexor will be continued. Abilify will be increased or changed to other medication. As-needed medication will be given. The patient requires further evaluation, stabilization and medication adjustment. Thank you very much. Gisel Baptiste MD
== END 2019-04-19 16:58 ==
LOC: ED 15:09 → ERH 17:55 → 2RNO 20:26
PROVIDERS: ADMIT Internal Medicine Nephrology; ATTEND Internal Medicine
DX: R55 Syncope and collapse (principal); F20.0 Paranoid schizophrenia; E87.6 Hypokalemia; D50.9 Iron deficiency anemia, unspecified; E78.5 Hyperlipidemia, unspecified; J44.9 Chronic obstructive pulmonary disease, unspecified; K21.9 Gastro-esophageal reflux disease without esophagitis; G40.909 Epilepsy, unspecified, not intractable, without status epilepticus; E66.9 Obesity, unspecified; Z68.41 Body mass index [BMI] 40.0-44.9, adult; Z86.73 Personal history of transient ischemic attack (TIA), and cerebral infarction without residual deficits; K29.70 Gastritis, unspecified, without bleeding; Z91.14 Patient's other noncompliance with medication regimen; Z91.19 Patient's noncompliance with other medical treatment and regimen; Z87.891 Personal history of nicotine dependence; F31.9 Bipolar disorder, unspecified; F41.9 Anxiety disorder, unspecified; G47.30 Sleep apnea, unspecified
CPT/HCPCS: 36415; 70450; 71045; 80053; 80061; 80177; 81001; 81025; 82728; 83021; 83036; 83540; 83550; 83735; 84100; 84443; 84484; 84703; 85014; 85018; 85025; 85041; 87086; 93005; 93306; 99285; G0378; G0480; J3480